=== PATIENT | female | born 1965 | race Caucasian/White ===

== ENCOUNTER → 2018-03-04 11:47 | Outpatient (CLI) | payer OTHER, SELFPAY ==
--- NOTE | 2018-03-04 11:52 | RAD_ITS ---
STUDY: X-RAY - RIGHT FOOT CLINICAL: Female, 53 years old. History of plantar fasciitis. TECHNIQUE: 3 view(s) of the foot. COMPARISON: None. FINDINGS: There is a plantar calcaneal spur. Normal visualized subtalar, talonavicular, calcaneocuboid, tarsal and tarsometatarsal articulations. Normal metatarsi. Normal metatarsophalangeal joint of the great toe. Normal tibial and fibular sesamoid bones. Normal interphalangeal joint of the great toe. Normal phalanges of the great toe. Normal second through fifth metatarsophalangeal joints. Normal interphalangeal joints and phalanges of the lesser toes. The soft tissue structures are unremarkable. RAD/Foot min 3 Views IMPRESSION: Plantar spur. Electronically Signed: Fidel Monroy MD at 11:38 EDT Tel [phone], Service support ,
--- NOTE | 2018-03-04 11:52 | RAD_ITS ---
STUDY: X-RAY - LEFT FOOT CLINICAL: Female, 53 years old. Pain TECHNIQUE: Three view(s) of the foot were obtained. COMPARISON: None. FINDINGS: Bones: There are no acute osseous abnormalities. There is a small spur off the inferior calcaneus. Joints: The visualized joints are unremarkable. Soft tissues: The soft tissues are unremarkable. Foreign body: None RAD/Foot min 3 Views IMPRESSION: No significant abnormalities are seen radiographically in the left foot. There is a small inferior calcaneal spur. Electronically Signed: Debbi Robertson MD at 10:09 EDT Tel Direct: [phone], Service support ,
== END ==
PROVIDERS: Family Provider Family Medicine; PCP Family Medicine; Visit Provider Family Medicine
DX: M79.671 Pain in right foot (principal); M79.672 Pain in left foot; M72.2 Plantar fascial fibromatosis
CPT/HCPCS: 73630

== ENCOUNTER → 2018-03-27 18:28 | Outpatient (CLI) | payer OTHER, SELFPAY ==
[2018-03-27 18:31] LABS: Bacteria 0 SEEN /hpf (None Seen); Mucous, Urine 0 SEEN /hpf (<or=2+); Red Blood Cells-Urine 0 SEEN /hpf (0-5); Squamous Epithelial Cells - UA 0 SEEN /hpf (5-10)
[2018-03-27 19:11] LABS: Color, Urine Yellow (Yellow); Glucose, Dipstick Normal (Normal); Ketone-Dipstick Negative (Negative); Leukocyte Esterase-Dipstick 25 /ul (Negative); Nitrite-Dipstick Negative (Negative); Occult Blood-Urine 10 /ul (Negative); Protein-Dipstick Negative (Negative); Specific Gravity, Urine 1.005 (1.002-1.030); Urine Bilirubin Dipstick Negative (Negative); Urine Clarity Clear (Clear); Urine Urobilinogen Normal (Normal); Urine pH 6.5 (5.0 - 8.0)
[2018-03-27 19:21] LABS: White Blood Cells 0-5 SEEN /hpf (0-5)
== END ==
PROVIDERS: Visit Provider Physician Assistant Surgical
DX: R30.0 Dysuria (principal)
CPT/HCPCS: 81001; 87086

== ENCOUNTER 2018-05-03 01:40 | Day surgery (SDC) | payer OTHER, SELFPAY ==
[2018-05-03] VITALS (15 sets, daily range): BP systolic 99–140; BP diastolic 58–80; PULSE 68–106; RESP 16–20; TEMP 36.6–37.7; O2SAT 90–99; BMI 29.7
--- NOTE | 2018-05-03 02:15 | CT_ITS ---
STUDY: CT ABDOMEN AND PELVIS WITHOUT CONTRAST REASON FOR EXAM: Female, 53 years old. Right lower quadrant pain RADIATION DOSAGE (If Supplied By Facility): CTDIvol = ( 12.41 ) mGy, DLP = ( 623.25 ) mGycm TECHNIQUE: Transaxial images were obtained from the dome of the diaphragm to the symphysis pubis without oral contrast, and without intravenous contrast. Sagittal and coronal images were reconstructed. Individualized dose optimization techniques were used for this CT. COMPARISON: None. FINDINGS: The visualized lung bases are unremarkable. The visualized portions of the heart are within normal limits. Normal liver. Normal gallbladder and extrahepatic biliary system. Normal spleen. Normal pancreas. Normal bilateral adrenal glands. Normal right kidney. Normal left kidney. Normal visualized stomach. Normal small intestine. There are multiple colonic diverticula consistent with diverticulosis. There is a tubular, thick-walled appendix (>7mm), consistent with acute appendicitis. Normal abdominal aorta. Normal inferior vena cava. Normal retroperitoneum. Normal urinary bladder. Normal abdominal wall. Normal osseous structures. CT/Abdomen/Pelvis without Cont IMPRESSION: Acute appendicitis. Electronically Signed: Anita Chinchilla MD at 4:33 EDT Tel , Service support ,
[2018-05-03 02:33] LABS: Absolute Lymphocyte Count 1.67 X10^3/ul (0.83-4.51); Absolute Neutrophil Count 14.7 X10^3/uL (2.0-7.7); Basophil# 0.01 X10^3/uL; Basophil% 0.1 % (0-1); Eosinophil# 0.01 X10^3/uL; Eosinophils% 0.1 % (0-5); Hematocrit 46.5 % (37-47); Hemoglobin 16.1 g/dl (12.0-15.0); Lymphocyte # 1.67 X10^3/ul (4.0); Lymphocyte % 9.4 % (19-41); Mean Corp Hgb Conc 34.6 g/gl (32-36); Mean Corpuscular Volume 86.6 fL (81-99); Mean Platelet Vol. 10.4 fl (6.2-12.0); Monocyte# 1.34 X10^3/uL; Monocyte% 7.6 % (0-10); Neutrophil # 14.65 X10^3/uL (2.7-7.7); Neutrophil % 82.5 % (47-70); Platelet Count 360 K/mm3 (150-450); RBC Distribution Width CV 13.7 % (11.6-14.6); RBC Distribution Width SD 43.4 fl (35.1-43.9); Red Blood Count 5.37 M/mm3 (4.2-5.4); White Blood Count 17.7 K/mm3 (4.4-11.0)
[2018-05-03 02:34] LABS: POSITIVE COUNT NO; POSITIVE DIFFERENTIAL NO; POSITIVE MORPHOLOGY NO
[2018-05-03] MEDS: HYDROmorphone 1 MG/ML Syringe IV ×4 (02:37→21:12)
[2018-05-03] MEDS: 0.9% Normal Saline 1,000 ML 1000 ML IV (02:37)
[2018-05-03] MEDS: proMETHazine 25 MG/ML Syringe 6.25 MG IV (02:37)
--- NOTE | 2018-05-03 03:33 | ED.RN ---
PATIENT SLEEPING WITH EYES CLOSED, RESPIRATIONS EVEN AND UNLABORED. BED IN LOW AND LOCKED POSITION, CALL LIGHT WITHIN REACH.
[2018-05-03 03:35] LABS: ALB/GLOB Ratio 1.2 RATIO (0.9-2.4); AST(SGOT) 16 U/L (15-37); Alanine Aminotransfer ALT/SGPT 22 U/L (13-56); Albumin, Serum 3.6 g/dL (3.2-5.0); Alkaline Phosphatase 112 U/L (45-117); Anion Gap 10 (5-15); BUN 9 mg/dL (7-18); BUN/Creat Ratio 12.6 RATIO (10-20); Calcium,Total 8.8 mg/dL (8.5-10.1); Chloride 105 mmol/L (98-107); Creatinine, Serum 0.71 mg/dL (0.55-1.02); EST Glomerular Filtration Rate 91 mL/min (>60); Est Glom Filt Rate - Afr Amer 110 mL/min (>60); Estimated Creatinine Clearance 64.31 ml/min; Globulin 3.1 g/dL (2.2-4.2); Glucose 187 mg/dL (74-106); Lipase 66 U/L (73-393); Potassium 3.7 mmol/L (3.5-5.1); Protein, Total 6.7 g/dL (6.4-8.2); Sodium Level 141 mmol/L (136-145)
--- NOTE | 2018-05-03 05:42 | HP.PCM_ITS ---
Problem List (1) Appendicitis Status: Acute Qualifiers: Appendicitis type: acute appendicitis Acute appendicitis type: with localized peritonitis Qualified Code(s): K35.3 - Acute appendicitis with localized peritonitis History of Present Illness Date of Admission: 05/03/18 The patient is a 53 year old F who was in her normal state of health until 5:00 this evening when she developed periumbilical abdominal pain. Over the last several hours after that it gradually localized down to the right lower quadrant requiring her to come to the emergency department. Once in the emergency department she was noted to have a white count of 17.7 and a CAT scan which confirmed acute appendicitis. She has not been having any fevers or chills she has had some nausea and vomiting she complains of constant constipation. Past Medical History Medical History: Medical History (Last Updated 03/27/18 @ 17:54 by Suyapa Webb) Arthritis M19.90 Back pain M54.9 Diabetes E11.9 Fibromyalgia M79.7 GERD (gastroesophageal reflux disease) K21.9 IBS (irritable bowel syndrome) K58.9 Neuropathy G62.9 PCOS (polycystic ovarian syndrome) E28.2 Hypertension I10 Trigger finger release Allergies metoclopramide HCl [From Reglan] Allergy (Verified 05/03/18 01:40) Anaphylaxis Home Medications: Ambulatory Orders Medication Instructions Recorded Gabapentin [Neurontin] 600 mg PO BIDCM 05/24/15 Calcium Carbonate [Calcium] 1,200 mg PO DAILY 11/11/16 Docusate Sodium [Colace] 200 mg PO BID 11/11/16 milnacipran 50 mg tablet 75 mg PO BID 03/27/18 multivitamin capsule 1 cap PO QAM 03/27/18 pravastatin 40 mg tablet 40 mg PO DAILY 03/27/18 quinapril 40 mg tablet 40 mg PO DAILY 03/27/18 Aspirin [Aspirin, Baby] 81 mg PO DAILY@0800 05/03/18 Cyclobenzaprine [Flexeril] 5 mg PO QHS 05/03/18 Cyclobenzaprine [Flexeril] 10 mg PO BREAKFAST 05/03/18 Fiber PO BID 05/03/18 Insulin Pump Cartridge 05/03/18 Surgical History: Surgical History (Last Reviewed 05/03/18 @ 05:40 by Julio C Spann MD) H/O shoulder surgery Z98.890 H/O: hysterectomy Z90.710 S/P trigger finger release Z98.890 right thumb A1, left index A1- 18 History of arthroscopy of right shoulder Z98.890 History of hysterectomy Z98.890, Z90.710 History of tonsillectomy Z98.890, Z90.89 Hx of fusion of cervical spine Z98.1 Smoking Status: Never smoker - *Family History Maternal Family History: Family History (Last Reviewed 05/03/18 @ 05:41 by Julio C Spann MD) Other Arthritis Diabetes Review of Systems Constitutional: Denies: Chills, Fever, Weight Change Eyes: Denies: Blurred vision, Pain, Redness, Vision Change HEENT: Denies: Dysphasia, Ear Pain, Eye Pain, Head Aches, Hearing Changes, Sore Throat Cardiovascular: Denies: Chest Pain, Chest Pressure, Chest Tightness, Palpitations Respiratory: Denies: Cough, Hemoptysis, Shortness of breath at rest, Shortness of breath upon exertion, Wheezing Gastrointestinal: Reports: Abdominal Pain, Constipation, Nausea, Vomiting Genitourinary: Denies: Dysuria, Frequency, Hematuria, Urgency Musculoskeletal: Denies: Joint Pain Skin: Denies: Lesions, Rash, Wounds Neurological: Denies: Change in Speech, Confusion, Numbness, Tingling, Seizures Psychiatric: Denies: Anxiety, Depression Endocrine: Denies: Heat/ Cold Intolerance, Polydipsia, Polyuria Hematologic/ Lymphatic: Denies: Adenopathy, Easy Bruising VTE Information - Inpt Only VTE Present on Admission: No VTE Mechan Device Prophylaxis: None VTE Pharm Prophylaxis ordered?: No Reason prophylaxis not ordered:: Treatment Not Indicated Patient Problems: Active and Suspected Problems (Last Updated 03/27/18 @ 17:54 by Suyapa Webb) Appendicitis (Acute) - Physical Exam General: Alert, Oriented x3 HEENT: Atraumatic, PERRLA, EOMI, Normocephalic Lungs: Clear to auscultation Cardiovascular: Regular rate, Regular Rhythm, No murmurs Abdomen: Bowel Sounds Present, Soft, Non Tender, Non-Distended Vital Signs Temp Pulse Resp BP Pulse Ox 98.7 F 95 18 140/80 H 98 05/03/18 05:12 05/03/18 05:19 05/03/18 05:19 05/03/18 05:12 05/03/18 05:19 Oxygen Delivery Method Room Air Weight: 152 lb 1.903 oz Body Mass Index (BMI) 29.7 Laboratory Tests Past 24 Hrs 05/03/18 05/03/18 05/03/18 01:55 01:55 02:43 WBC 17.7 H RBC 5.37 Hgb 16.1 H Hct 46.5 MCV 86.6 MCH 30.0 MCHC 34.6 RDW 13.7 RDW Differential 43.4 Plt Count 360 MPV 10.4 Immature Gran % (Auto) 0.300 Neut % (Auto) 82.5 H Lymph % (Auto) 9.4 L [place] % (Auto) 7.6 Eos % (Auto) 0.1 Baso % (Auto) 0.1 Absolute Neuts (auto) 14.7 H Absolute Lymphs (auto) 1.67 Total Counted Not Reportable Sodium Cancelled Cancelled Potassium Cancelled Cancelled Chloride Cancelled Cancelled Carbon Dioxide Cancelled Cancelled Anion Gap Cancelled Cancelled BUN Cancelled Cancelled Creatinine Cancelled Cancelled Estim Creat Clear Calc Cancelled Cancelled Est GFR (MDRD) Af Amer Cancelled Cancelled Est GFR (MDRD) Non-Af Cancelled Cancelled BUN/Creatinine Ratio Cancelled Cancelled Glucose Cancelled Cancelled Calcium Cancelled Cancelled Total Bilirubin Cancelled Cancelled AST Cancelled Cancelled ALT Cancelled Cancelled Alkaline Phosphatase Cancelled Cancelled Total Protein Cancelled Cancelled Albumin Cancelled Cancelled Globulin Cancelled Cancelled Albumin/Globulin Ratio Cancelled Cancelled Lipase Cancelled Cancelled 05/03/18 03:15 WBC RBC Hgb Hct MCV MCH MCHC RDW RDW Differential Plt Count MPV Immature Gran % (Auto) Neut % (Auto) Lymph % (Auto) [place] % (Auto) Eos % (Auto) Baso % (Auto) Absolute Neuts (auto) Absolute Lymphs (auto) Total Counted Sodium 141 Potassium 3.7 Chloride 105 Carbon Dioxide 26.0 Anion Gap 10 BUN 9 Creatinine 0.71 Estim Creat Clear Calc 64.31 Est GFR (MDRD) Af Amer 110 Est GFR (MDRD) Non-Af 91 BUN/Creatinine Ratio 12.6 Glucose 187 H Calcium 8.8 Total Bilirubin 0.70 AST 16 ALT 22 Alkaline Phosphatase 112 Total Protein 6.7 Albumin 3.6 Globulin 3.1 Albumin/Globulin Ratio 1.2 Lipase 66 L Assessment/Plan All Active Problems (Last Updated 03/27/18 @ 17:54 by Suyapa Webb) Appendicitis (Acute) Cystitis (Acute) My plan is to perform a laparoscopic appendectomy. Risk benefits to include bleeding and infection possible injury to underlying structures possible blood clots heart attacks pneumonias strokes up to and including have all been discussed appropriately. All questions asked of been answered and the patient agrees to proceed.
--- NOTE | 2018-05-03 05:45 | NURSING ---
PT SIGNED CONSENT FORM FOR APPY PERFORMED BY DOCTOR BECKETT
--- NOTE | 2018-05-03 07:07 | PCM.OPRPT ---
Problem List (1) Appendicitis Status: Acute Qualifiers: Appendicitis type: acute appendicitis Acute appendicitis type: with localized peritonitis Qualified Code(s): K35.3 - Acute appendicitis with localized peritonitis Report of Operation Date of Procedure: 05/03/18 Pre-Operative Diagnosis: acute appendicitis Post-Operative Diagnosis: Same Surgery/Procedure Performed:: Laparoscopic appendectomy Type of Anesthesia:: General Anesthesiologist: Arslan Ribera Description of Procedure: Patient was brought into the operating room placed in the supine position. Under excellent general endotracheal intubation the abdomen was sterilely prepped and draped in the usual fashion. Local was injected supraumbilically. A curvilinear incision was made. Dissection was carried down to the fascia. Fascia was grasped with a Jacki. Varies needle was placed inside the abdomen. The abdomen was insufflated to 15 torr. A 10/12 trocar was placed without difficulty. Patient was placed in the head down and rotated to the left position. The suprapubic #5 trocar was placed, a left lower quadrant #5 trocar was placed. Both of these under direct visualization without injury to underlying structures. Patient was noted to have acute appendicitis I dissected the mesoappendix free and took it down with the Enseal. I transected the base the appendix with a 45 linear cutter. I placed a specimen and specimen bag and delivered through the umbilical port. I reinflated the abdomen I took a small adhesion down into the pelvis inspected there was no pus or purulent fluid identified. In fact there is no purulent fluid identified anywhere. I remove the trochars under direct visualization. I closed the fascia the umbilical port with a [id number] stitch of 0 Vicryl. Skin incisions were closed with subcuticular stitches of 4-0 Monocryl. Steri-Strips are applied sterile dressings were applied and the patient tolerated the procedure well. - Admit VTE Documentation VTE Present on Admission: No VTE Mechan Device Prophylaxis: SCD's VTE Pharm Prophylaxis ordered?: No Reason prophylaxis not ordered:: Treatment Not Indicated
--- NOTE | 2018-05-03 07:09 | DT_ITS ---
This patient was seen during an EMR downtime May 04, 2018 - May 11, 2018. This patient may have a combination of paper and electronic documentation or all paper documentation. All documentation is viewable within the e-chart portion of [facility] for each patient visit.
[2018-05-03] MEDS: Bupivacaine Mpf 0.5% 30 ML VIAL (07:26)
[2018-05-03 08:16] LABS: Bedside Glucose 113 mg/dL (70-110)
[2018-05-03] MEDS: Lactated Ringers 1,000 ML 75 ML IV ×2 (08:45→19:33)
[2018-05-03] MEDS: DULoxetine Hcl 60 MG Capsule PO ×2 (12:30→21:12)
[2018-05-03] MEDS: Docusate Sodium 100 MG Capsule 200 MG PO ×2 (12:30→21:12)
[2018-05-03] MEDS: Pravastatin 40 MG Tablet PO (12:30)
--- NOTE | 2018-05-03 14:42 | PCM.CONS.GEN ---
Problem List (1) Diabetes mellitus type 1 Status: Chronic (2) Appendicitis Status: Acute Qualifiers: Appendicitis type: acute appendicitis Acute appendicitis type: with localized peritonitis Qualified Code(s): K35.3 - Acute appendicitis with localized peritonitis Reason for Consult Date of Consultation: 05/03/18 Reason for Consultation: DM management. History of Present Illness: The patient is a 53 year old F presents with abdominal pain. Abdominal pain was umbilical then radiated to her right lower quadrant. Patient was found to have acute appendicitis. Patient was taken to surgery today and have a laparoscopic appendectomy. Patient is feeling okay right now little groggy after receiving some pain medications. Patient is a type I diabetic with insulin pump and remote monitor. Patient manages her diabetes on her own. [] Past Medical History Past Medical History (Chronic Problems): Chronic Problems (Last Updated 03/27/18 @ 17:54 by Suyapa Webb) Diabetes mellitus type 1 (Chronic) Medical History: Medical History (Last Reviewed 05/03/18 @ 14:45 by Arslan Grullon DO) Arthritis M19.90 Back pain M54.9 Diabetes E11.9 Fibromyalgia M79.7 GERD (gastroesophageal reflux disease) K21.9 IBS (irritable bowel syndrome) K58.9 Neuropathy G62.9 PCOS (polycystic ovarian syndrome) E28.2 Hypertension I10 Trigger finger release Allergies metoclopramide HCl [From Reglan] Allergy (Verified 05/03/18 01:40) Anaphylaxis Home Medications: Ambulatory Orders Medication Instructions Recorded Gabapentin [Neurontin] 600 mg PO BIDCM 05/24/15 Calcium Carbonate [Calcium] 1,200 mg PO DAILY 11/11/16 Docusate Sodium [Colace] 200 mg PO BID 11/11/16 milnacipran 50 mg tablet 75 mg PO BID 03/27/18 multivitamin capsule 1 cap PO QAM 03/27/18 pravastatin 40 mg tablet 40 mg PO DAILY 03/27/18 quinapril 40 mg tablet 40 mg PO DAILY 03/27/18 Aspirin [Aspirin, Baby] 81 mg PO DAILY@0800 05/03/18 Cyclobenzaprine [Flexeril] 5 mg PO QHS 05/03/18 Cyclobenzaprine [Flexeril] 10 mg PO BREAKFAST 05/03/18 Fiber PO BID 05/03/18 Insulin Pump Cartridge 05/03/18 Surgical History: Surgical History (Last Reviewed 05/03/18 @ 14:46 by Arslan Grullon DO) H/O shoulder surgery Z98.890 H/O: hysterectomy Z90.710 S/P trigger finger release Z98.890 right thumb A1, left index A1- 12/09/17 History of arthroscopy of right shoulder Z98.890 History of hysterectomy Z98.890, Z90.710 History of tonsillectomy Z98.890, Z90.89 Hx of fusion of cervical spine Z98.1 Surgical History: appendectomy, hysterectomy, - - tubal ligation Lives: Spouse/ Significant Other Smoking Status: Never smoker Tobacco Use: Non-smoker Alcohol: None Drugs: None - *Family History Maternal Family History: Family History (Last Reviewed 05/03/18 @ 14:46 by Arslan Grullon DO) Other Arthritis Diabetes Review of Systems Constitutional: Denies: Anorexia, Chills, Fever Eyes: Denies: Blurred vision, Double vision HEENT: Denies: Head Aches, Sinus Congestion, Sinus Drainage Cardiovascular: Denies: Chest Pain, Palpitations Respiratory: Denies: Cough, Shortness of breath at rest, Sputum production Gastrointestinal: Reports: Abdominal Pain, Nausea, Vomiting Genitourinary: Denies: Dysuria Musculoskeletal: Denies: Joint Pain, Joint Tenderness Skin: Denies: Rash, Wounds Neurological: Reports: - - paresthesia in feet d/t neuropathy Psychiatric: Denies: Anxiety, Depression Hematologic/ Lymphatic: Reports: Hx of blood clot. Denies: Easy Bruising, Easy Bleeding - Physical Exam General: Alert, Cooperative, No apparent distress HEENT: Atraumatic, Normocephalic Neck: No Nodes, Thyroid Normal Size and Texture Lungs: Clear to auscultation, Normal air movement, No rhonchi, No wheeze Cardiovascular: Regular rate, Regular Rhythm, Normal S1, Normal S2, No murmurs Abdomen: Soft, Non Tender, Non-Distended, Hypoactive Bowel Sounds Extremities: No edema, No Calf Tenderness Skin: No rashes, No breakdown Psych/Mental Status: Normal Affect, Appropriate Vital Signs Temp Pulse Resp BP Pulse Ox 37.7 C H 94 20 H 122/62 H 90 05/03/18 12:45 05/03/18 12:45 05/03/18 12:45 05/03/18 12:45 05/03/18 13:34 Oxygen Flow Rate (L/min) 2 Oxygen Delivery Method Room Air Weight: 69 kg Body Mass Index (BMI) 29.7 Finger Stick Blood Glucose 113 Intake and Output for Last 24 Hours 05/01/18 05/02/18 05/03/18 23:59 23:59 23:59 Intake Total 2712 / 2712 Balance 2712 / 2712 Laboratory Tests Past 24 Hrs 05/03/18 05/03/18 05/03/18 01:55 01:55 02:43 WBC 17.7 H RBC 5.37 Hgb 16.1 H Hct 46.5 MCV 86.6 MCH 30.0 MCHC 34.6 RDW 13.7 RDW Differential 43.4 Plt Count 360 MPV 10.4 Immature Gran % (Auto) 0.300 Neut % (Auto) 82.5 H Lymph % (Auto) 9.4 L [place] % (Auto) 7.6 Eos % (Auto) 0.1 Baso % (Auto) 0.1 Absolute Neuts (auto) 14.7 H Absolute Lymphs (auto) 1.67 Total Counted Not Reportable Sodium Cancelled Cancelled Potassium Cancelled Cancelled Chloride Cancelled Cancelled Carbon Dioxide Cancelled Cancelled Anion Gap Cancelled Cancelled BUN Cancelled Cancelled Creatinine Cancelled Cancelled Estim Creat Clear Calc Cancelled Cancelled Est GFR (MDRD) Af Amer Cancelled Cancelled Est GFR (MDRD) Non-Af Cancelled Cancelled BUN/Creatinine Ratio Cancelled Cancelled Glucose Cancelled Cancelled Calcium Cancelled Cancelled Total Bilirubin Cancelled Cancelled AST Cancelled Cancelled ALT Cancelled Cancelled Alkaline Phosphatase Cancelled Cancelled Total Protein Cancelled Cancelled Albumin Cancelled Cancelled Globulin Cancelled Cancelled Albumin/Globulin Ratio Cancelled Cancelled Lipase Cancelled Cancelled 05/03/18 03:15 WBC RBC Hgb Hct MCV MCH MCHC RDW RDW Differential Plt Count MPV Immature Gran % (Auto) Neut % (Auto) Lymph % (Auto) [place] % (Auto) Eos % (Auto) Baso % (Auto) Absolute Neuts (auto) Absolute Lymphs (auto) Total Counted Sodium 141 Potassium 3.7 Chloride 105 Carbon Dioxide 26.0 Anion Gap 10 BUN 9 Creatinine 0.71 Estim Creat Clear Calc 64.31 Est GFR (MDRD) Af Amer 110 Est GFR (MDRD) Non-Af 91 BUN/Creatinine Ratio 12.6 Glucose 187 H Calcium 8.8 Total Bilirubin 0.70 AST 16 ALT 22 Alkaline Phosphatase 112 Total Protein 6.7 Albumin 3.6 Globulin 3.1 Albumin/Globulin Ratio 1.2 Lipase 66 L POC Glucose 05/03/18 08:10 POC Glucose 113 H Assessment/Plan All Active Problems (Last Updated 03/27/18 @ 17:54 by Suyapa Webb) Appendicitis (Acute) Cystitis (Acute) 1. DM type 1 pt manages on her own with insulin pump and implanted glucometer will assist as needed or if patient unable 2. acute appendicitis s/p lap brunilda mgmt per surgery 3. DVT proph: per primary service Thank you for the consult. The hospitalist service will follow along with you. Code Visit Inpatient E&M: 17472 Init Hosp L2
--- NOTE | 2018-05-03 14:50 | CON.PCM_ITS ---
Problem List (1) Diabetes mellitus type 1 Status: Chronic (2) Appendicitis Status: Acute Qualifiers: Appendicitis type: acute appendicitis Acute appendicitis type: with localized peritonitis Qualified Code(s): K35.3 - Acute appendicitis with localized peritonitis Reason for Consult Date of Consultation: 05/03/18 Reason for Consultation: DM management. History of Present Illness: The patient is a 53 year old F presents with abdominal pain. Abdominal pain was umbilical then radiated to her right lower quadrant. Patient was found to have acute appendicitis. Patient was taken to surgery today and have a laparoscopic appendectomy. Patient is feeling okay right now little groggy after receiving some pain medications. Patient is a type I diabetic with insulin pump and remote monitor. Patient manages her diabetes on her own. [] Past Medical History Past Medical History (Chronic Problems): Chronic Problems (Last Updated 03/27/18 @ 17:54 by Suyapa Webb) Diabetes mellitus type 1 (Chronic) Medical History: Medical History (Last Reviewed 05/03/18 @ 14:45 by Arslan Grullon DO) Arthritis M19.90 Back pain M54.9 Diabetes E11.9 Fibromyalgia M79.7 GERD (gastroesophageal reflux disease) K21.9 IBS (irritable bowel syndrome) K58.9 Neuropathy G62.9 PCOS (polycystic ovarian syndrome) E28.2 Hypertension I10 Trigger finger release Allergies metoclopramide HCl [From Reglan] Allergy (Verified 05/03/18 01:40) Anaphylaxis Home Medications: Ambulatory Orders Medication Instructions Recorded Gabapentin [Neurontin] 600 mg PO BIDCM 05/24/15 Calcium Carbonate [Calcium] 1,200 mg PO DAILY 11/11/16 Docusate Sodium [Colace] 200 mg PO BID 11/11/16 milnacipran 50 mg tablet 75 mg PO BID 03/27/18 multivitamin capsule 1 cap PO QAM 03/27/18 pravastatin 40 mg tablet 40 mg PO DAILY 03/27/18 quinapril 40 mg tablet 40 mg PO DAILY 03/27/18 Aspirin [Aspirin, Baby] 81 mg PO DAILY@0800 05/03/18 Cyclobenzaprine [Flexeril] 5 mg PO QHS 05/03/18 Cyclobenzaprine [Flexeril] 10 mg PO BREAKFAST 05/03/18 Fiber PO BID 05/03/18 Insulin Pump Cartridge 05/03/18 Surgical History: Surgical History (Last Reviewed 05/03/18 @ 14:46 by Arslan Grullon DO) H/O shoulder surgery Z98.890 H/O: hysterectomy Z90.710 S/P trigger finger release Z98.890 right thumb A1, left index A1- 12/09/17 History of arthroscopy of right shoulder Z98.890 History of hysterectomy Z98.890, Z90.710 History of tonsillectomy Z98.890, Z90.89 Hx of fusion of cervical spine Z98.1 Surgical History: appendectomy, hysterectomy, - - tubal ligation Lives: Spouse/ Significant Other Smoking Status: Never smoker Tobacco Use: Non-smoker Alcohol: None Drugs: None - *Family History Maternal Family History: Family History (Last Reviewed 05/03/18 @ 14:46 by Arslan Grullon DO) Other Arthritis Diabetes Review of Systems Constitutional: Denies: Anorexia, Chills, Fever Eyes: Denies: Blurred vision, Double vision HEENT: Denies: Head Aches, Sinus Congestion, Sinus Drainage Cardiovascular: Denies: Chest Pain, Palpitations Respiratory: Denies: Cough, Shortness of breath at rest, Sputum production Gastrointestinal: Reports: Abdominal Pain, Nausea, Vomiting Genitourinary: Denies: Dysuria Musculoskeletal: Denies: Joint Pain, Joint Tenderness Skin: Denies: Rash, Wounds Neurological: Reports: - - paresthesia in feet d/t neuropathy Psychiatric: Denies: Anxiety, Depression Hematologic/ Lymphatic: Reports: Hx of blood clot. Denies: Easy Bruising, Easy Bleeding - Physical Exam General: Alert, Cooperative, No apparent distress HEENT: Atraumatic, Normocephalic Neck: No Nodes, Thyroid Normal Size and Texture Lungs: Clear to auscultation, Normal air movement, No rhonchi, No wheeze Cardiovascular: Regular rate, Regular Rhythm, Normal S1, Normal S2, No murmurs Abdomen: Soft, Non Tender, Non-Distended, Hypoactive Bowel Sounds Extremities: No edema, No Calf Tenderness Skin: No rashes, No breakdown Psych/Mental Status: Normal Affect, Appropriate Vital Signs Temp Pulse Resp BP Pulse Ox 37.7 C H 94 20 H 122/62 H 90 05/03/18 12:45 05/03/18 12:45 05/03/18 12:45 05/03/18 12:45 05/03/18 13:34 Oxygen Flow Rate (L/min) 2 Oxygen Delivery Method Room Air Weight: 69 kg Body Mass Index (BMI) 29.7 Finger Stick Blood Glucose 113 Intake and Output for Last 24 Hours 05/01/18 05/02/18 05/03/18 23:59 23:59 23:59 Intake Total 2712 / 2712 Balance 2712 / 2712 Laboratory Tests Past 24 Hrs 05/03/18 05/03/18 05/03/18 01:55 01:55 02:43 WBC 17.7 H RBC 5.37 Hgb 16.1 H Hct 46.5 MCV 86.6 MCH 30.0 MCHC 34.6 RDW 13.7 RDW Differential 43.4 Plt Count 360 MPV 10.4 Immature Gran % (Auto) 0.300 Neut % (Auto) 82.5 H Lymph % (Auto) 9.4 L [place] % (Auto) 7.6 Eos % (Auto) 0.1 Baso % (Auto) 0.1 Absolute Neuts (auto) 14.7 H Absolute Lymphs (auto) 1.67 Total Counted Not Reportable Sodium Cancelled Cancelled Potassium Cancelled Cancelled Chloride Cancelled Cancelled Carbon Dioxide Cancelled Cancelled Anion Gap Cancelled Cancelled BUN Cancelled Cancelled Creatinine Cancelled Cancelled Estim Creat Clear Calc Cancelled Cancelled Est GFR (MDRD) Af Amer Cancelled Cancelled Est GFR (MDRD) Non-Af Cancelled Cancelled BUN/Creatinine Ratio Cancelled Cancelled Glucose Cancelled Cancelled Calcium Cancelled Cancelled Total Bilirubin Cancelled Cancelled AST Cancelled Cancelled ALT Cancelled Cancelled Alkaline Phosphatase Cancelled Cancelled Total Protein Cancelled Cancelled Albumin Cancelled Cancelled Globulin Cancelled Cancelled Albumin/Globulin Ratio Cancelled Cancelled Lipase Cancelled Cancelled 05/03/18 03:15 WBC RBC Hgb Hct MCV MCH MCHC RDW RDW Differential Plt Count MPV Immature Gran % (Auto) Neut % (Auto) Lymph % (Auto) [place] % (Auto) Eos % (Auto) Baso % (Auto) Absolute Neuts (auto) Absolute Lymphs (auto) Total Counted Sodium 141 Potassium 3.7 Chloride 105 Carbon Dioxide 26.0 Anion Gap 10 BUN 9 Creatinine 0.71 Estim Creat Clear Calc 64.31 Est GFR (MDRD) Af Amer 110 Est GFR (MDRD) Non-Af 91 BUN/Creatinine Ratio 12.6 Glucose 187 H Calcium 8.8 Total Bilirubin 0.70 AST 16 ALT 22 Alkaline Phosphatase 112 Total Protein 6.7 Albumin 3.6 Globulin 3.1 Albumin/Globulin Ratio 1.2 Lipase 66 L POC Glucose 05/03/18 08:10 POC Glucose 113 H Assessment/Plan All Active Problems (Last Updated 03/27/18 @ 17:54 by Suyapa Webb) Appendicitis (Acute) Cystitis (Acute) 1. DM type 1 * pt manages on her own with insulin pump and implanted glucometer * will assist as needed or if patient unable 2. acute appendicitis * s/p lap brunilda * mgmt per surgery 3. DVT proph: per primary service Thank you for the consult. The hospitalist service will follow along with you. Code Visit Inpatient E&M: [id number] Init Hosp L2
[2018-05-03] MEDS: Piperacil/Tazobactam 3.375 GM/50 ML ML IV ×2 (15:21→21:02)
[2018-05-03] MEDS: HYDROcodone Bitartrate/Apap 5/325 Tablet PO (16:24)
[2018-05-03] MEDS: Gabapentin 600 MG Tablet PO (18:14)
[2018-05-03] MEDS: 0.9% NaCl Peripheral Flush Adult/Peds IV (21:12)
[2018-05-03] MEDS: CYCLOBENZAPRINE HCL 5 MG TABLET PO (21:13)
[2018-05-03] MEDS: Ibuprofen 400 MG Tablet 800 MG PO (21:15)
--- NOTE | 2018-05-04 | APP_PTH ---
PATIENT: DEANNE CAO LOC: [facility] U#:[id number] AGE/SX: 53/F ROOM: RE05/03/[address]: Dr. Julio C Spann MD : [id number] BED: DIS: 05/04/2018 SPEC #: [id number] RECD: 05/04/18 11:18 STATUS: CACHORRO RECatarino #: [id number] GURU: 05/04/18 00:[address]: Julio C Spann DEPT: SURGICAL PATHOLOGY RECD BY: Martinez Kumar ENTERED: 05/07/18 11:18 SP TYPE: APPENDIX OTHR DR: Dr. Santino Ruelas, DO Tissues: Appendix, NOS Procedures: Surgery Specimen Level III HEADER OPERATION: Laparoscopic appendectomy PRE-OP DIAGNOSIS: Acute appendicitis TISSUE SUBMITTED: Appendix MICROSCOPIC DIAGNOSIS Appendix: Acute appendicitis and periappendicitis. SJ:flora 05/08/18 MICROSCOPIC DESCRIPTION Slides are reviewed. GROSS DESCRIPTION Received is one container labeled with the patient's name and designated appendix. The specimen consists of a C-shaped appendix measuring 9.5 cm in length and up to 1 cm in average diameter. The attached periappendiceal adipose tissue measures 4 cm in width. No obvious perforation is identified. The lumen contains fecal material. No fecalith is identified. Foster Care Case Manager sections are submitted in one cassette. / SJ:flora 05/04/18 TC:2 [facility]: [id number]
[2018-05-04] MEDS: HYDROcodone Bitartrate/Apap 5/325 Tablet PO (02:52)
[2018-05-04 02:54] VITALS: BP 106/61; PULSE 88; RESP 16; TEMP 36.7; O2SAT 94
--- NOTE | 2018-05-04 02:58 | NURSING ---
Bedside report to ROEL Hair at this time.
[2018-05-07 16:08] LABS: Basophil% 0.2 % (0-1); Differential Indicated SCAN CRITERIA MET; Eosinophils% 1.6 % (0-5); Hematocrit 38.9 % (37-47); Hemoglobin 12.7 g/dl (12.0-15.0); Lymphocyte % 24.6 % (19-41); Mean Corp Hgb Conc 32.6 g/gl (32-36); Mean Corpuscular Hgb 30.1 pg (27.0-32.0); Mean Corpuscular Volume 92.2 fL (81-99); Mean Platelet Vol. 10.9 fl (6.2-12.0); Monocyte% 9.2 % (0-10); Neutrophil % 64.4 % (47-70); POSITIVE COUNT NO; POSITIVE DIFFERENTIAL NO; POSITIVE MORPHOLOGY YES; Platelet Count 240 K/mm3 (150-450); RBC Distribution Width CV 13.6 % (11.6-14.6); RBC Distribution Width SD 44.9 fl (35.1-43.9); Red Blood Count 4.22 M/mm3 (4.2-5.4); White Blood Count 10.6 K/mm3 (4.4-11.0)
[2018-05-07 16:09] LABS: Absolute Lymphocyte Count 2.62 X10^3/ul (0.83-4.51); Absolute Neutrophil Count 6.8 X10^3/uL (2.0-7.7); Basophil# 0.02 X10^3/uL; Differential Comment SCANNED; Eosinophil# 0.17 X10^3/uL; Lymphocyte # 2.62 X10^3/ul (4.0); Monocyte# 0.98 X10^3/uL; Neutrophil # 6.84 X10^3/uL (2.7-7.7)
== END 2018-05-04 10:35 | disposition home or self-care (01) ==
LOC: ED 02:59 → SDC 07:18 → MS3 08:08
PROVIDERS: Emergency Provider Emergency Medicine; Family Provider Family Medicine; PCP Family Medicine; Visit Provider Surgery
PROC: 0DTJ4ZZ Resection of Appendix, Percutaneous Endoscopic Approach (ICD-10-PCS; CPT 44970; principal; 2018-05-03 07:00)
DX: K35.3 Acute appendicitis with localized peritonitis (principal); M19.90 Unspecified osteoarthritis, unspecified site; M54.9 Dorsalgia, unspecified; M79.7 Fibromyalgia; K21.9 Gastro-esophageal reflux disease without esophagitis; K58.9 Irritable bowel syndrome, unspecified; G62.9 Polyneuropathy, unspecified; E28.2 Polycystic ovarian syndrome; I10 Essential (primary) hypertension; E10.9 Type 1 diabetes mellitus without complications; Z79.4 Long term (current) use of insulin
CPT/HCPCS: 00840; 44970; 36415; 74176; 80053; 82962; 83690; 85025; 88304; 99283; J7030; J7040; J7120; A4216; C1760; J2405

== ENCOUNTER → 2018-10-14 10:55 | Outpatient (CLI) | payer OTHER, SELFPAY ==
[2018-10-14 12:11] LABS: Absolute Lymphocyte Count 1.83 X10^3/ul (0.83-4.51); Absolute Neutrophil Count 3.3 X10^3/uL (2.0-7.7); Basophil# 0.02 X10^3/uL; Basophil% 0.3 % (0-1); Eosinophil# 0.21 X10^3/uL; Eosinophils% 3.5 % (0-5); Hematocrit 48.2 % (37-47); Hemoglobin 16.3 g/dl (12.0-15.0); Lymphocyte # 1.83 X10^3/ul (4.0); Lymphocyte % 30.4 % (19-41); Mean Corp Hgb Conc 33.8 g/gl (32-36); Mean Corpuscular Hgb 30.1 pg (27.0-32.0); Mean Corpuscular Volume 89.1 fL (81-99); Mean Platelet Vol. 10.4 fl (6.2-12.0); Neutrophil # 3.34 X10^3/uL (2.7-7.7); Neutrophil % 55.6 % (47-70); Platelet Count 357 K/mm3 (150-450); RBC Distribution Width CV 12.8 % (11.6-14.6); RBC Distribution Width SD 42.2 fl (35.1-43.9); Red Blood Count 5.41 M/mm3 (4.2-5.4)
[2018-10-14 12:23] LABS: POSITIVE COUNT NO; POSITIVE DIFFERENTIAL NO; POSITIVE MORPHOLOGY NO
[2018-10-14 15:54] LABS: Ferritin 95 ng/mL (8-252); T4 Free Direct 0.88 ng/dL (0.76-1.46); Thyroid Stim Hormone (TSH) 2.04 uIU/mL (0.358-3.74)
== END ==
PROVIDERS: Family Provider Family Medicine; PCP Family Medicine; Visit Provider Family Medicine
DX: R53.83 Other fatigue (principal); L65.9 Nonscarring hair loss, unspecified; E10.49 Type 1 diabetes mellitus with other diabetic neurological complication
CPT/HCPCS: 36415; 82728; 84439; 84443; 85025

== ENCOUNTER → 2019-02-03 10:20 | Outpatient (CLI) | payer OTHER, SELFPAY ==
[2018-12-24 16:20] VITALS: BMI 28.7
--- NOTE | 2019-02-03 10:22 | BI_ITS ---
MAMMOGRAPHY - BILATERAL SCREENING REASON FOR EXAM: Female, 53 years old. Routine annual screening examination. PERTINENT HISTORY: Non-contributory. TECHNIQUE: Digital bilateral breast justin (3D mammographic acquisition) in the CC and MLO projections. 2-D mediolateral oblique (MLO) and craniocaudad (CC) views of both breasts were obtained. CAD: Full Field Digital Mammography with Computer Added Detection was performed. COMPARISON: Comparison is made with prior examination July 05, 2013. FINDINGS: Breast Composition: The breasts are heterogeneously dense, which may obscure small masses. There are no dominant masses or suspicious calcifications. Stable small benign-appearing bilateral axillary lymph nodes. No other significant abnormalities are identified. There has been no significant change since the prior study. BI/SCREENING MAMM (CAD), BILAT IMPRESSION: Stable bilateral screening mammogram. Yearly follow-up mammogram recommended. (A) ASSESSMENT CATEGORY: BIRADS Category 2: Benign. A letter regarding these results will be sent to the patient by the facility within 30 days. Approximately 10% of breast cancers are not detected by mammography. A normal mammogram should not delay biopsy of a clinically suspicious abnormality. [id number] Electronically Signed: Fidel Monroy, at 11:32 EST , Service support ,
== END ==
PROVIDERS: Family Provider Family Medicine; PCP Family Medicine; Visit Provider Family Medicine
DX: Z12.31 Encounter for screening mammogram for malignant neoplasm of breast (principal)
CPT/HCPCS: 77063; 77067

== ENCOUNTER → 2019-03-18 22:44 | Outpatient (CLI) | payer OTHER, SELFPAY ==
[2019-03-18 19:42] VITALS: BMI 28.5
== END ==
PROVIDERS: Family Provider Family Medicine; PCP Family Medicine; Referring Provider Nurse Practitioner; Visit Provider Nurse Practitioner
DX: N30.90 Cystitis, unspecified without hematuria (principal)
CPT/HCPCS: 87086; 87088; 87186

== ENCOUNTER → 2019-05-05 | Outpatient (CLI) | payer OTHER, SELFPAY ==
[2019-03-18 19:42] VITALS: BMI 28.5
[2019-05-07 12:56] LABS: Microalbumin,Random Urine < 5.0 mg/L (NO RANGE EST.)
[2019-05-07 12:57] LABS: Hemoglobin A1c 7.1 % (4.2-6.3); Probe Check PASS; Sample Adequacy Control PASS; Specimen Processing Control PASS; Trichomonas Vag DNA by PCR Negative (Negative)
== END | disposition home or self-care (01) ==
LOC: LAB.FUTURE 09:08
PROVIDERS: Family Provider Family Medicine; PCP Family Medicine; Visit Provider Family Medicine
DX: E10.49 Type 1 diabetes mellitus with other diabetic neurological complication (principal); N89.8 Other specified noninflammatory disorders of vagina
CPT/HCPCS: 36415; 82043; 82570; 83036; 87210; 87661

== ENCOUNTER → 2019-07-21 10:09 | Outpatient (CLI) | payer OTHER, SELFPAY ==
[2019-03-18 19:42] VITALS: BMI 28.5
--- NOTE | 2019-07-21 10:17 | RAD_ITS ---
STUDY: X-RAY - UNILATERAL RIBS ( LEFT ) WITH CHEST REASON FOR EXAM: Female, 54 years old. Rib pain. TECHNIQUE - RIBS: 4 view(s) of the ribs. TECHNIQUE - CHEST: Single frontal view of the chest. COMPARISON: None. FINDINGS - RIBS: Normal visualized ribs without a demonstrated fracture. FINDINGS - CHEST: The lungs are clear and expanded. There is no demonstrated pleural abnormality. Normal size heart. Normal mediastinum and patsy. Normal visualized pulmonary arteries. Normal visualized aortic arch and descending thoracic aorta. Normal visualized thoracic spine. Previous cervical spine surgery. Normal visualized ribs, clavicles, and shoulders. There is no demonstrated abnormality of the visualized soft tissue structures of the upper abdomen. RAD/Ribs Uni Min 3V w/PA Chest IMPRESSION: RIBS: Normal x-ray examination of the ribs. CHEST: Normal x-ray examination of the chest. Electronically Signed: Richy Kang MD at 17:01 EDT , Service support ,
== END ==
PROVIDERS: Family Provider Family Medicine; PCP Family Medicine; Referring Provider Family Medicine; Visit Provider Family Medicine
DX: R07.81 Pleurodynia (principal)
CPT/HCPCS: 71101

== ENCOUNTER 2019-09-13 09:16 | Emergency (ER) | payer OTHER, SELFPAY ==
[2019-03-18 19:42] VITALS: BMI 28.5
[2019-09-13 09:17] VITALS: BP 134/79; PULSE 100; RESP 16; TEMP 35.8; O2SAT 99; BMI 29.5
--- NOTE | 2019-09-13 09:25 | EKG12_ITS ---
Test Reason : UNRESPONSIVE Blood Pressure : / mmHG Vent. Rate : 081 BPM Atrial Rate : 081 BPM P-R Int : 152 ms QRS Dur : 098 ms QT Int : 428 ms P-R-T Axes : 070 -09 065 degrees QTc Int : 497 ms Normal sinus rhythm Low voltage QRS (limb leads) Prolonged QT Abnormal ECG Confirmed by RUPA HERNANDEZ, JEAN CARLOS ([id number]), content editor CRUZITO GREENWOOD ([id number]) on 09/15/2019 8:42:29 AM Referred By: MASON Confirmed By:JEAN CARLOS GOODE MD
--- NOTE | 2019-09-13 09:26 | ED.VIS.GEN ---
History of Present Illness Chief Complaint: Unresponsive Informant: Patient, - - Coworker Limited by: - - Patient dozes off and does not respond to verbal stimuli. Onset: Today Context: Sudden Onset Timing: Intermittent Quality: Periods of unresponsiveness and periods of talking Location: Work Current Severity: - - Unable to determine Maximum Severity: - - Unable to determine Worsened by: Unknown Relieved by: Nothing Associated Symptoms: Patient states she is fine - Past Medical History (1) Diabetes mellitus type 1 Status: Chronic Past Medical History - Allergies and Home Meds Allergies/Adverse Reactions: Allergies metoclopramide HCl [From Reglan] Allergy (Verified 09/13/19 09:25) Anaphylaxis Primary Care Physician: Santino Ruelas DO [Primary Care Provider] - Prior records reviewed: Yes Surgical History: appendectomy, hysterectomy, - - tubal ligation Lives: Spouse/ Significant Other Smoking Status: Never smoker Alcohol: None Drugs: None Review of Systems ROS: Unable to Obtain - States blood sugar elevated and problem with pump per patient and . Physical Exam Vital Signs/Narrative: Vital Signs Temp Pulse Resp BP Pulse Ox 09/13/19 09:17 96.5 F L 100 16 134/79 H 99 Inital Vital Signs reviewed: Yes General: Well nourished, Well developed, Obese, No Acute Distress - Patient resting supine position on bed. Appears that she is forcefully keeping her eyes closed. She had a positive startle response. She asked why I slapped my hands so loudly. She then went back to sleep. Head: Normocephalic, Atraumatic Eyes: Perrl, EOMI. Negative for: Pale conjunctiva, Scleral icterus ENT: Moist mucous membranes, No rhinorrhea Neck: Supple, Nontender, No lymphadenopathy, No JVD Cardiovascular: Regular rate, Regular rhythm, No murmurs, Normal S1, Normal S2 Respiratory: No distress, CTA bilaterally, Chest nontender Abdomen: Soft, Nontender, Nondistended, Normal bowel sounds, - - Site of insulin pump right lower quadrant Rectal: Deferred Extremities: Nontender, No edema Skin: Normal color, No rash, No Trauma. Negative for: Cyanosis, Diaphoresis, Jaundice Neurological: Cranial nerves II-XII grossly intact, Normal Strength, Normal Sensation, Normal DTR - There is no clonus or Babinski sign Psychological: - - Affect is restricted Diagnostic/Tx/Re-eval Laboratory Results 09/13/19 09/13/19 09/13/19 09:45 09:45 10:03 WBC 6.6 RBC 4.40 Hgb 13.2 Hct 39.6 MCV 90.0 MCH 30.0 MCHC 33.3 RDW Std Deviation 41.2 RDW Coeff of Tobias 12.4 Plt Count 259 MPV 9.6 Immature Gran % (Auto) 0.500 Neut % (Auto) 50.5 Lymph % (Auto) 35.2 [place] % (Auto) 9.9 Eos % (Auto) 3.3 Baso % (Auto) 0.6 Absolute Neuts (auto) 3.4 Absolute Lymphs (auto) 2.34 Nucleated RBC % 0 Sodium 142 Potassium 3.8 Chloride 110 H Carbon Dioxide 24.0 Anion Gap 8 BUN 10 Creatinine 0.67 Estim Creat Clear Calc 67.34 Est GFR (MDRD) Af Amer 117 Est GFR (MDRD) Non-Af 97 BUN/Creatinine Ratio 14.9 Glucose 184 H Calcium 7.5 L POC Glucose 177 H Blood sugar is 177 and would not explain patient's symptoms. Patient remembers using the restroom. She told the rifle case repairer that this occurred after she used the restroom. She was not diaphoretic or pale according to coworkers who accompanied her to the emergency department. With no cause that explains patient's symptoms concern this represents a conversion reaction. Recommend outpatient follow-up with therapist. - Rhythm Strip Rhythm Strip: Sinus Rhythm Rate: 77 Ectopy: None - EKG Initial EKG Interpretation: Sinus Rhythm - Sinus rhythm with ventricular rate of 81. RI interval is 152 ms. QS duration 98 ms. QT duration 420 ms. The QT interval is prolonged. QTc is 497 ms. Mil[place] is normal. - Medical Decision Making With positive startle response and arm avoidance test and patient speaking without difficulty when she does answer questions concerned there may be outside stresses. was contacted. He states she has been under generalized stress but nothing in particular. He raised concern regarding insulin pump since she had difficulty with the pump this morning. She is on no antidepressant medication or any type of psychotropic medication. Because she is diabetic we will obtain BGT and because informed us that she gave herself a bolus will assess BGT and 30 minutes. Basic metabolic panel was obtained to assess electrolytes, CO2 anion gap as well as renal function. EKG was obtained and patient was placed on monitor to assess for dysrhythmia. Consult was placed to case management because concern for conversion reaction. Informed patient could not see. Performed optic kinetics and patient is able to see. She tracks. She then made the comment that it was only brief. Daughter wished to speak with me in private. Daughter states she has been under significant distress. She has been very emotional with outburst. Daughter states she moved out of the house 6 months ago because she could not take her behavior and how her parents were interacting. With a negative metabolic work-up, normal neurologic exam and this new information it is my professional opinion patient has a conversion reaction. ED Disposition - Plan for ED Patient: Disposition: Home or Assisted Living Diagnosis: Conversion reaction Instructions: CONVERSION DISORDER (Conversion Reaction) Referrals: Santino Ruelas DO [Primary Care Provider] - 3-5 Days Additional Instructions: In my professional opinion you should follow-up with therapist.
[2019-09-13 09:52] LABS: Absolute Lymphocyte Count 2.34 X10^3/uL (0.83-4.51); Absolute Neutrophil Count 3.4 X10^3/uL (2.0-7.7); Basophil# 0.04 X10^3/uL; Basophil% 0.6 % (0-1); Eosinophil# 0.22 X10^3/uL; Eosinophils% 3.3 % (0-5); Hematocrit 39.6 % (37-47); Hemoglobin 13.2 g/dL (12.0-15.0); Lymphocyte # 2.34 X10^3/ul (4.0); Lymphocyte % 35.2 % (19-41); Mean Corp Hgb Conc 33.3 g/dL (32-36); Mean Platelet Vol. 9.6 fl (6.2-12.0); Monocyte# 0.66 X10^3/uL; Monocyte% 9.9 % (0-10); NRBC Flagged by Analyzer 0 % (0-5); Neutrophil # 3.35 X10^3/uL (2.7-7.7); Neutrophil % 50.5 % (47-70); Platelet Count 259 K/mm3 (150-450); RBC Distribution Width CV 12.4 % (11.6-14.6); RBC Distribution Width SD 41.2 fl (35.1-43.9); White Blood Count 6.6 K/mm3 (4.4-11.0)
[2019-09-13 10:05] LABS: Anion Gap 8 (5-15); BUN 10 mg/dL (7-18); BUN/Creat Ratio 14.9 RATIO (10-20); Calcium,Total 7.5 mg/dL (8.5-10.1); Chloride 110 mmol/L (98-107); Creatinine, Serum 0.67 mg/dL (0.55-1.02); EST Glomerular Filtration Rate 97 mL/min (>60); Est Glom Filt Rate - Afr Amer 117 mL/min (>60); Estimated Creatinine Clearance 67.34 ml/min; Glucose 184 mg/dL (74-106); Potassium 3.8 mmol/L (3.5-5.1); Sodium Level 142 mmol/L (136-145)
[2019-09-13 10:11] LABS: Bedside Glucose 177 mg/dL (70-110)
[2019-09-13 10:16] VITALS: BP 119/76; PULSE 76; RESP 14; O2SAT 100
--- NOTE | 2019-09-13 10:34 | CM.ED ---
Social Work Consult: Conversion Disorder Reaction Informant: Dr. Celis. Chief Complaint: I can not stay awake. Patient stating to be able to hear this freelance writer or medical team speaking with her but to be so deep that patient is not able to respond verbally. Marital/social status: to Antoine Owusu. Has know Antoine for 40 years. Has two adult children, Moody and Carol. Living Situation: Lives with spouse and son, Moody. Recent Stressors: Patient stating nothing out of the normal. Patient daughter stating that patient has become worse over the past year and that Carol recently moved out of the home due to it being too much. Carol stating that patient will have outburst of anger and frustration at home. Mental health treatment/hx: Denies any history. Substance Abuse: Denies. Abuse: None. General Behavior: Patient would fluctuate between having eyes open and making eye contact with this social media strategist to laying with eyes closed with minimal verbal response. Patient would have period of times when patient would stop responding verbally and appear to be asleep. When this social media strategist would raise voice to alert patient patient would not respond. After a few attempts patient would appear to be waking up and stating to have been hearing this social media strategist but could not respond verbally. Assessment: Met with patient and patient daughter in room. This social media strategist introduced self as well as social media strategist role. Patient agreeable to met with this social media strategist. Patient stating that social work consults are due to someone thinking I am crazy. This social media strategist clarifying for patient that the consult was not due to patient being crazy but that there is concern of patient mental health status as per Dr. Celis all medical results/screen are negative. This social media strategist inquiring if patient would be interested in a counseling appointment. Patient becoming agitated with the idea of counseling stating I do not need that. This social media strategist attempting to provide patient with a list of counseling agencies in the event that patient would change mind, patient declining. This social media strategist did put list of counseling agencies with patient discharge information and updated ROEL Acevedo. Patient daughter planning to provide transportation to home for patient. Khang Galan MSW, XAVIER
[2019-09-14 13:10] LABS: Bedside Glucose 212 mg/dL (70-110)
[2019-09-14 14:36] LABS: Bedside Glucose 236 mg/dL (70-110)
== END 2019-09-13 11:13 | disposition home or self-care (01) ==
PROVIDERS: Emergency Provider Emergency Medicine; Family Provider Family Medicine; PCP Family Medicine
DX: F44.9 Dissociative and conversion disorder, unspecified (principal); E10.9 Type 1 diabetes mellitus without complications; E66.9 Obesity, unspecified; Z79.4 Long term (current) use of insulin; Z96.41 Presence of insulin pump (external) (internal); Z79.82 Long term (current) use of aspirin; Z79.899 Other long term (current) drug therapy
CPT/HCPCS: 80048; 82962; 85025; 93005; 99284; A4216

== ENCOUNTER → 2019-09-22 13:19 | Outpatient (CLI) | payer OTHER, SELFPAY ==
[2019-09-13 09:17] VITALS: BMI 29.5
--- NOTE | 2019-09-22 13:24 | MRI_ITS ---
STUDY: MRA NECK WITH AND WITHOUT CONTRAST REASON FOR EXAM: Female, 54 years old. Syncope TECHNIQUE: 3-D gluw-rz-emyujb (TOF) imaging was performed in an 1.5 T MRI scanner. IV Dotarem 13 was administered for the contrast enhanced images. COMPARISON: None. FINDINGS: RIGHT CAROTID ARTERIES: Normal right common carotid artery (CCA). Normal right common carotid bulb. Normal origin of the right internal carotid (ICA) artery without a hemodynamically significant stenosis. Normal visualized cervical portion of the right internal carotid artery. Normal origin of the right external carotid artery (ECA). LEFT CAROTID ARTERIES: Normal left common carotid artery (CCA). Normal left common carotid bulb. Normal origin of the left internal carotid (ICA) artery without a hemodynamically significant stenosis. Normal visualized cervical portion of the left internal carotid artery. Normal origin of the left external carotid artery (ECA). VERTEBRAL ARTERIES: Normal antegrade flow within the bilateral vertebral artery without a hemodynamically significant stenosis. MRI/MRA Neck WITH and W/O Contrast IMPRESSION: Normal bilateral cervical carotid and vertebral arteries. Electronically Signed: Kings Lara MD at 20:38 EDT , Service support ,
== END ==
PROVIDERS: Family Provider Family Medicine; PCP Family Medicine; Referring Provider Family Medicine; Visit Provider Family Medicine
DX: R55 Syncope and collapse (principal); E10.9 Type 1 diabetes mellitus without complications
CPT/HCPCS: 70549; A9575

== ENCOUNTER → 2019-11-09 11:00 | Outpatient (CLI) | payer OTHER, SELFPAY ==
--- NOTE | 2019-11-09 11:42 | EKG12_ITS ---
Test Reason : PROLONGED QT Blood Pressure : / mmHG Vent. Rate : 078 BPM Atrial Rate : 078 BPM P-R Int : 154 ms QRS Dur : 094 ms QT Int : 420 ms P-R-T Axes : 068 -20 066 degrees QTc Int : 478 ms Normal sinus rhythm Possible Left atrial enlargement Borderline ECG When compared with ECG of 13-SEP-2019 09:34, No significant change was found Confirmed by MISSY HERNANDEZ, TOM ([id number]), book editor CRUZITO GREENWOOD ([id number]) on 11/10/2019 11:54:49 AM Referred By: Santino Ruelas Confirmed By:TOM LOUIS MD
[2019-11-09 12:31] LABS: Hemoglobin A1c 7.5 % (4.2-6.3)
== END ==
PROVIDERS: Family Provider Family Medicine; PCP Family Medicine; Referring Provider Family Medicine; Visit Provider Family Medicine
DX: E10.49 Type 1 diabetes mellitus with other diabetic neurological complication (principal); R94.31 Abnormal electrocardiogram [ECG] [EKG]
CPT/HCPCS: 36415; 83036; 93005

== ENCOUNTER → 2019-12-17 14:40 | Outpatient (CLI) | payer OTHER, SELFPAY ==
[2019-11-26 11:08] VITALS: BMI 29.5
--- NOTE | 2019-12-17 14:42 | RAD_ITS ---
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 COMPARISON: None. FINDINGS: There is a non-specific bowel gas pattern. Normal visualized soft tissue structures. There is narrowing with cortical sclerosis and osteophyte formation of the sacroiliac joint consistent with degenerative osteoarthritic changes. Normal visualized bilateral superior and inferior pubic rami. Normal pubic symphysis. Normal ischial tuberosities. Normal visualized right femoral head. There is osteoarthritic spur formation of the right acetabular rim. There is mild articular joint space narrowing of the right hip. Normal visualized left femoral head. There is osteoarthritic spur formation of the left acetabular rim. There is mild articular joint space narrowing of the left hip. RAD/Pelvis 1 or 2 Views IMPRESSION: Multilevel degenerative disease as described above, otherwise normal x-ray examination of the pelvis. Electronically Signed: Zaida Haque MD at 2:45 EST , Service support ,
[2019-12-17 15:37] LABS: Absolute Lymphocyte Count 2.35 X10^3/uL (0.83-4.51); Absolute Neutrophil Count 3.7 X10^3/uL (2.0-7.7); Basophil# 0.05 X10^3/uL; Basophil% 0.7 % (0-1); Eosinophils% 2.9 % (0-5); Hematocrit 50.2 % (37-47); Hemoglobin 16.2 g/dL (12.0-15.0); Lymphocyte # 2.35 X10^3/ul (4.0); Mean Corp Hgb Conc 32.3 g/dL (32-36); Mean Corpuscular Hgb 28.7 pg (27.0-32.0); Mean Corpuscular Volume 88.8 fL (81-99); Monocyte# 0.58 X10^3/uL; Monocyte% 8.4 % (0-10); NRBC Flagged by Analyzer 0 % (0-5); Neutrophil # 3.73 X10^3/uL (2.7-7.7); Neutrophil % 53.9 % (47-70); Platelet Count 361 K/mm3 (150-450); RBC Distribution Width CV 12.6 % (11.6-14.6); RBC Distribution Width SD 41.2 fl (35.1-43.9); Red Blood Count 5.65 M/mm3 (4.2-5.4); White Blood Count 6.9 K/mm3 (4.4-11.0)
[2019-12-17 16:01] LABS: ALB/GLOB Ratio 0.9 RATIO (0.9-2.4); AST(SGOT) 20 U/L (15-37); Alanine Aminotransfer ALT/SGPT 29 U/L (13-56); Albumin, Serum 3.6 g/dL (3.2-5.0); Alkaline Phosphatase 101 U/L (45-117); Anion Gap 5 (5-15); BUN 9 mg/dL (7-18); BUN/Creat Ratio 10.3 RATIO (10-20); CRP 4.02 mg/L (0.0-3.0); Calcium,Total 9.1 mg/dL (8.5-10.1); Chloride 102 mmol/L (98-107); Creatinine, Serum 0.87 mg/dL (0.55-1.02); EST Glomerular Filtration Rate 71 mL/min (>60); Est Glom Filt Rate - Afr Amer 86 mL/min (>60); Globulin 3.8 g/dL (2.2-4.2); Glucose 247 mg/dL (74-106); Potassium 3.9 mmol/L (3.5-5.1); Protein, Total 7.4 g/dL (6.4-8.2); Sodium Level 137 mmol/L (136-145)
[2019-12-17 16:09] LABS: Erythrocyte Sedimentation Rate 6 mm/hr (0-30)
[2019-12-17 17:07] LABS: Hepatitis B Surface Antibody Non-Reactive; Hepatitis B Surface Antigen Non-Reactive (Nonreactive); Hepatitis C Antibody Non-Reactive (Nonreactive)
[2019-12-20 16:25] LABS: ANTINUCLEAR ANTIBODIES DIRECT Negative (Negative)
[2019-12-22 20:17] LABS: CCP IgG Antibodies 15 units (0-19); HLA B27 Negative (.); Hepatitis B Core AB IgM Negative (Negative)
== END ==
PROVIDERS: PCP Family Medicine; Referring Provider Internal Medicine Rheumatology; Visit Provider Internal Medicine Rheumatology
DX: M06.4 Inflammatory polyarthropathy (principal); M79.7 Fibromyalgia; M21.40 Flat foot [pes planus] (acquired), unspecified foot; K58.9 Irritable bowel syndrome, unspecified; M50.30 Other cervical disc degeneration, unspecified cervical region; E10.40 Type 1 diabetes mellitus with diabetic neuropathy, unspecified
CPT/HCPCS: 36415; 72170; 80053; 81374; 85025; 85652; 86038; 86140; 86200; 86431; 86705; 86706; 86803; 87340

== ENCOUNTER → 2020-01-19 12:44 | Outpatient (CLI) | payer OTHER, SELFPAY ==
[2020-01-05 10:26] VITALS: BMI 28.9
== END ==
PROVIDERS: PCP Family Medicine; Referring Provider Internal Medicine Cardiovascular Disease; Visit Provider Internal Medicine Cardiovascular Disease
DX: R55 Syncope and collapse (principal); R00.2 Palpitations
CPT/HCPCS: 93225; 93226

== ENCOUNTER → 2020-02-02 09:02 | Outpatient (CLI) | payer OTHER, SELFPAY ==
[2020-01-05 10:26] VITALS: BMI 28.9
--- NOTE | 2020-02-02 09:03 | ECHOD_ITS ---
Reason For Study: Syncope Procedure This was a 2D Doppler, Color Flow transthoracic echocardiogram. Exam performed in department. Left Ventricle Normal LV size. Left ventricular systolic function is normal. The estimated ejection fraction is 60 %. Stage 1 diastolic dysfunction. No regional wall motion abnormalities noted. Right Ventricle Normal RV size. Normal systolic function. Atria Normal left atrium. Normal right atrium. Mitral Valve Normal mitral valve. Tricuspid Valve Normal tricuspid valve. Aortic Valve Normal aortic valve. Trisinus/trileaflet aortic valve. Pulmonic Valve Normal pulmonic valve. Great Vessels Normal aortic root. The pulmonary artery is normal size. Normal inferior vena cava. Pericardium/Pleural No pericardial effusion. MMode/2D Measurements & Calculations LVIDd: 3.4 cm IVSd: 1.2 cm Ao root diam: 3.2 cm LVIDs: 2.1 cm LVPWd: 0.97 cm LA dimension: 2.6 cm FS: 37.8 % LAV(MOD-bp): 20.5 ml LA A4 area: 8.4 cm2 RA A4 area: 7.5 cm2 LAV(MOD-bp) Indexed: 12.5 ml/m2 LAV(MOD-sp2): 22.6 ml LAV(MOD-sp4): 16.4 ml Time Measurements MV dec time: 0.20 sec Doppler Measurements & Calculations MV E max juan: 71.2 cm/sec Lat Peak E' Juan: 7.2 cm/sec Med Peak E' Juan: 6.8 cm/sec MV A max juan: 87.9 cm/sec E/E' lat: 9.9 E/E' med: 10.5 MV E/A: 0.81 MV V2 max: 95.3 cm/sec MV P1/2t max juan: 79.0 cm/sec Ao V2 max: 100.3 cm/sec MV max P.6 mmHg MV P1/2t: 81.3 msec Ao max P.0 mmHg MV V2 mean: 56.8 cm/sec MV dec slope: 284.4 cm/sec2 MV mean P.5 mmHg MVA(P1/2t): 2.7 cm2 MV V2 VTI: 23.1 cm LV V1 max: 81.1 cm/sec PA V2 max: 77.5 cm/sec LV V1 max P.7 mmHg Interpretation Summary Normal LV size. Left ventricular systolic function is normal. The estimated ejection fraction is 60 %. Stage 1 diastolic dysfunction. Ordering Physician: Obdulio Staples Referring Physician: Obdulio Staples Performed By: Seferino Donahue RCS
== END ==
PROVIDERS: PCP Family Medicine; Referring Provider Internal Medicine Cardiovascular Disease; Visit Provider Internal Medicine Cardiovascular Disease
DX: R55 Syncope and collapse (principal)
CPT/HCPCS: 93306

== ENCOUNTER → 2020-07-20 12:02 | Outpatient (CLI) | payer OTHER, SELFPAY ==
[2020-07-17 13:41] VITALS: BMI 26.4
[2020-07-17 14:13] VITALS: BMI 26.5
--- NOTE | 2020-07-20 12:03 | NM_ITS ---
CLINICAL: 55-year-old type I diabetic female with reported history of postprandial abdominal bloating and nausea. SEMI-SOLID PHASE 99m Tc SULFUR COLLOID GASTRIC EMPTYING STUDY COMPARISON: None available FINDINGS: The patient was administered 1.0 mCi of 99m Tc sulfur colloid mixed with oatmeal and consumed per os. Image acquisitions in the anterior-posterior projections for a total of 60 minutes. There is prompt visualization of the stomach. There is no gastroesophageal reflux identified. The T ? linear fit was calculated to be 55.62 minutes, (Normal: 12-56 minutes). NM/Gastric Emptying Study IMPRESSION: 1. NORMAL 99m Tc sulfur colloid semi-solid phase (oatmeal) gastric emptying imaging examination. A. There is upper limits of normal semi-solid phase gastric emptying compared to normal controls. (Tito et al, J Nucl Med Tech 38: 186, 2010). Electronically Signed: Gavino Mcneill DO at 23:21 EDT Tel , Service support ,
== END ==
PROVIDERS: PCP Family Medicine; Referring Provider Surgery; Visit Provider Surgery
DX: R11.2 Nausea with vomiting, unspecified (principal)
CPT/HCPCS: 78264; A9541

== ENCOUNTER 2020-07-26 10:07 | Day surgery (SDC) | payer OTHER, SELFPAY ==
[2020-07-17 14:13] VITALS: BMI 26.5
[2020-07-26] VITALS (7 sets, daily range): BP systolic 95–139; BP diastolic 54–80; PULSE 70–78; RESP 16; TEMP 36–36.6; O2SAT 95–99; BMI 26.2
[2020-07-26] MEDS: Lactated Ringers 1,000 ML 100 ML IV (10:39)
--- NOTE | 2020-07-26 10:55 | HP_ITS ---
Intake Vital Signs 07/17/20 BMI 26.5 07/17/20 Height 5 ft 07/17/20 Weight: 135 lb 9 oz 07/17/20 BP 157/83 H 07/17/20 Blood Pressure Location Rt brachial 07/17/20 Position Sitting 07/17/20 Respiration 20 H 07/17/20 Pulse 86 07/17/20 Temp 97.4 F L 07/17/20 Temp Source Temporal 07/17/20 Pulse Oximetry (%) 98 07/17/20 Oxygen Delivery Method room air Intake Visit Reasons: EGD Chief Complaint: nausea/vomiting Practice Office Associate Required: No Is patient in pain?: No Allergies metoclopramide HCl [From Reglan] Allergy (Verified 07/17/20 13:41) Anaphylaxis Medications Calcium Carbonate [Calcium] 1,200 mg PO DAILY 11/11/16 [History Confirmed 07/17/20] Docusate Sodium [Colace] 200 mg PO BID 11/11/16 [History Confirmed 07/17/20] Fiber PO BID 05/03/18 [History Confirmed 07/17/20] Insulin Pump Cartridge 05/03/18 [History Confirmed 07/17/20] traMADol [Ultram (G)] 100 mg PO DAILY 09/13/19 [History Confirmed 07/17/20] milnacipran 50 mg tablet 50 mg PO DAILY tab 01/05/20 [History Confirmed 07/17/20] cbd oil PO 04/05/20 [History Confirmed 07/17/20] promethazine 12.5 mg tablet 12.5 mg PO TID PRN #30 tab 06/26/20 [Rx Confirmed 07/17/20] Is last menstrual period known: No Post menopausal: Yes Patient : No PFSH Medical History Hyperlipidemia (Chronic) Essential (primary) hypertension (Chronic) Arthritis (Chronic) Back pain (Chronic) Diabetes mellitus type 1 (Chronic) Fibromyalgia (Chronic) GERD (gastroesophageal reflux disease) (Chronic) IBS (irritable bowel syndrome) (Chronic) Low calcium levels (Chronic) Maxillary sinusitis (Chronic) Neuropathy (Chronic) h/o vision problems (Chronic) H/O headache (Resolved) H/O urinary tract infection (Resolved) PCOS (polycystic ovarian syndrome) (Resolved) Trigger finger release (Resolved) Surgical History S/P trigger finger release (Chronic) H/O shoulder surgery (Suspected) H/O: hysterectomy (Resolved) History of appendectomy (Resolved) History of arthroscopy of right shoulder (Resolved) History of hysterectomy (Resolved) History of tonsillectomy (Resolved) Hx of fusion of cervical spine (Resolved) Family History Other Arthritis Asthma Diabetes Hypertension Social History (Updated 07/17/20 @ 14:[address] Tad Pak MD) Smoking Status: Never smoker alcohol intake: never HPI HPI HPI: DEANNE CAO, is a 55 F who presents to the office today for HPI HPI Surgical H&P: Yes HPI: DEANNE CAO, is a 55 F who presents to the office today for Nausea and vomiting. The patient reports that she has had nausea and vomiting since March. She has tried intermittently taking away some of her medications but this did not help. She does not associate with any of her foods. She does not associate with time of day. She says that sometimes she wakes up and immediately vomits sometimes it happens and then 20 minutes later she feels fine is able to eat again. She does say that she does vomit up food that she ate hours ago. ROS General General: Yes fatigue; no weight change, appetite, colon cancer, breast cancer or weakness HEENT HEENT: Yes swollen glands; no difficulty swallowing, eye injury, eye surgery or hoarseness Endo Endocrine: Yes diabetes mellitus; no thyroid disease, thyroid cancer, Hair loss, heat intolerance or cold intolerance Musc Musculoskeletal: Yes rheumatoid arthritis; no back problems, arthritis, gout or joint pain Cardio Cardiovascular: Yes high blood pressure; no murmur, pacemaker, heart disease, atrial fibrillation, heart attack, heart stent, palpitations, shortness of breat with exertion or chest pain Psych Psychiatric: No depression, anxiety or hearing voices Resp Respiratory: Yes shortness of breath, No sleep apnea, No cough, No COPD, No asthma, No emphysema, No wheezing Gastro Gastrointestinal: Yes abdominal pain, Yes nausea or vomiting, No diarrhea, Yes constipation, No blood in stool, Yes acid reflux, Yes hemorrhoids, No ulcers, No gallbladder problem, No black,tarry stools Raheem Hematologic: No blood thinners, No blood disorders, Yes bleeding, No anemia, Yes blood clots Neuro Neurologic: No weakness Exam Const General: cooperative Orientation: alert, oriented x3 HENMT Head: normal to inspection Ears: hearing grossly normal bilaterally Eyes General: appearance normal, both eyes and all related structures Visual Berger: normal visual berger by confrontation Neck Neck: normal visual inspection Chest Chest palpation & inspection: normal inspection of the chest Resp Effort & Inspection: normal respiratory effort Auscultation: clear to auscultation bilaterally Cardio Rate: regular rate Rhythm: regular rhythm Heart Sounds: no murmurs GI Inspection: non-distended Palpation: soft, nontender Musc Cervical Spine: normal cervical lordosis, cervical ROM normal Skin General: no rashes or lesions noted Neuro General: alert, oriented x3 Cranial Nerves: CN's II-XI intact bilaterally Cognition: normal cognition Extrem General: normal to inspection, full ROM Psych Appearance: grossly normal Affect: normal affect Assessment & Plan Problems 1. Projectile vomiting with nausea R11.12 Plan The patient is having nausea and vomiting and she has type 1 diabetes. I believe she may have some component of gastroparesis. The patient may also be having gastric outlet obstruction. She is not having any abdominal pain associated with these episodes and she has been on a PPI for 2 months. I recommend EGD and gastric emptying study. I explained endoscopy in detail to the patient. I explained the risks including but not limited to stroke or heart attack with anesthesia, perforation of the GI tract, bleeding, infection. I explained that any of these could necessitate further emergency surgery. The patient understands and all questions were answered sufficiently. The patient wishes to proceed with procedure. We discussed the current risks associated with COVID-19. While it is understood that there is a community spread of COVID-19, the risk of goldie COVID-19 while at [facility] ([facility]) is very low; however, the risk cannot be completely mitigated because of the community spread of the disease. We discussed in detail the risk of exposure to and/or potential harm posed by the COVID-19 virus with having a surgery/procedure at this time versus the risk of delaying the surgery/procedure. It is not possible to know either the risk of delaying the surgery or procedure or chance of getting an infection with perfect accuracy, but a joint decision was made to proceed at this time with the scheduled surgery/procedure as indicated on the consent form. Patient was notified that we will need to comply with any screening or testing [facility] wishes to perform or that surgery may be delayed for any positive results. Tad Pak MD Pager: [facility] [address] [place] [address], [address] [place] [address] Office: Orders Orders: EGD Today R11.2 Gastric Emptying Study Today R11.2 Coding Level of Care Code Off vis,new,level 4 Diagnoses Projectile vomiting with nausea R11.12 ??Vomiting type: projectile vomiting Time Spent (min) 45 I have re-examined the patient. There are no clinical changes since date of exam.
--- NOTE | 2020-07-26 10:58 | OP.EGD_ITS ---
Patient Name: Court Owusu Procedure Date: 07/26/2020 10:44 AM Date of : 1965 Age: 55 Procedure: Upper GI endoscopy Indications: Persistent vomiting of unknown cause Providers: Tad Pak MD Referring MD: Santino Ruelas Medicines: Monitored Anesthesia Care Patient Profile: This is a 55 year old female. Refer to note in patient chart for documentation of history and physical. Complications: No immediate complications. Estimated blood loss: Minimal. Procedure: Pre-Anesthesia Assessment: - Prior to the procedure, a History and Physical was performed, and patient medications and allergies were reviewed. The patient's tolerance of previous anesthesia was also reviewed. The risks and benefits of the procedure and the sedation options and risks were discussed with the patient. All questions were answered, and informed consent was obtained. Prior Anticoagulants: The patient has taken no previous anticoagulant or antiplatelet agents. After reviewing the risks and benefits, the patient was deemed in satisfactory condition to undergo the procedure. After obtaining informed consent, the endoscope was passed under direct vision. Throughout the procedure, the patient's blood pressure, pulse, and oxygen saturations were monitored continuously. The gastroscope was introduced through the mouth, and advanced to the fourth part of duodenum. The upper GI endoscopy was accomplished without difficulty. The patient tolerated the procedure well. Scope In: 10:51:57 AM Scope Out: 10:54:54 AM Total Procedure Duration Time 0 hours 2 minutes 57 seconds Findings: The esophagus was normal. The stomach was normal. The examined duodenum was normal. Biopsies were taken with a cold forceps in the gastric antrum for Helicobacter pylori testing. Impression: - Normal esophagus. - Normal stomach. - Normal examined duodenum. - Biopsies were taken with a cold forceps for Helicobacter pylori testing. Recommendation: - Await pathology results. - Discharge patient to home. - Resume previous diet. - Continue present medications. Procedure Code(s): --- Professional --- 21329, Esophagogastroduodenoscopy, flexible, transoral; with biopsy, single or multiple Diagnosis Code(s): --- Professional --- R11.10, Vomiting, unspecified CPT copyright 2017 [employer]. All rights reserved. The codes documented in this report are preliminary and upon stopperer assembler review may be revised to meet current compliance requirements. Tad Pak MD 07/26/2020 10:57:41 AM This report has been signed electronically. Number of Addenda: 0 Note Initiated On: 07/26/2020 10:44 AM
--- NOTE | 2020-07-26 10:58 | OP.CCLET_ITS ---
07/26/2020 Santino Ruelas [address] [place] [address] Re : Upper GI endoscopy procedure for Court Owusu Dear Dr. Ruelas This procedure was performed on Sunday, July 26, 2020. My impressions and recommendations are as follows: Impressions : - Normal esophagus. - Normal stomach. - Normal examined duodenum. - Biopsies were taken with a cold forceps for Helicobacter pylori testing. Recommendations : - Await pathology results. - Discharge patient to home. - Resume previous diet. - Continue present medications. My findings are described in the full procedure note, which is enclosed. If I can be of further assistance, please feel free to contact me at Doctor phone number(s): , Work: . Sincerely, Tad Pak MD 07/26/2020 10:57:41 AM This report has been signed electronically.
--- NOTE | 2020-07-26 11:00 | EGD_PTH ---
PATIENT: DEANNE CAO LOC: EN U#:[id number] AGE/SX: 55/F ROOM: RE07/26/[address]: Dr. Tad Pak MD : 1965 BED: DIS: 07/26/2020 SPEC #: [id number] RECD: 07/26/20 14:20 STATUS: CACHORRO RICH #: [id number] GURU: 07/26/20 11:[address]: Tad Pak DEPT: SURGICAL PATHOLOGY RECD BY: Mary Kate Timmons ENTERED: 07/27/20 11:44 SP TYPE: EGD BIOPSY OTHR DR: Dr. Santino Ruelas, DO Tissues: Gastric mucous membrane Procedures: Surgery Specimen Level IV HEADER OPERATION: EGD ([facility] [place]) PRE-OP DIAGNOSIS: Nausea, projectile vomiting TISSUE SUBMITTED: Antrum biopsy for histo and H. pylori MICROSCOPIC DIAGNOSIS Gastric antrum, biopsy: Chronic gastritis. Intestinal metaplasia. No evidence of dysplasia. See comment. AM:flora 07/28/20 COMMENT The results of immunohistochemistry for Helicobacter pylori will be reported separately ([id number]). Immunohistochemistry ([id number]) supports the above diagnosis. MICROSCOPIC DESCRIPTION Slides are reviewed. GROSS DESCRIPTION Received in fixative is one container labeled with the patient's name and designated antrum biopsy. The specimen consists of one irregular fragment of light chambers soft tissue that measures 0.3 x 0.3 x 0.1 cm. The specimen is totally submitted in one cassette. / SJ:flora 07/27/20 TC:3 CPT: 55713
--- NOTE | 2020-07-26 11:00 | IMM_PTH ---
PATIENT: DEANNE CAO LOC: EN U#:[id number] AGE/SX: 55/F ROOM: RE07/26/[address]: Dr. Tad Pak MD : 1965 BED: DIS: 07/26/2020 SPEC #: [id number] RECD: 07/27/20 09:36 STATUS: CACHORRO REQ #: [id number] GURU: 07/26/20 11:[address]: Tad Pak DEPT: IMMUNOHISTOCHEMISTRY RECD BY: Leidy Jeong ENTERED: 07/27/20 09:36 SP TYPE: IMMUNO OTHR DR: Dr. Santino Ruelas DO Tissues: Stomach, NOS Procedures: H Pylori (initial) KI-67 (add) P53 (add) PHYSICIAN & INSTITUTION [place] [id number] SPECIMEN INFORMATION: Tissue Source: Antrum biopsy Clinical Info: Nausea, vomiting Specimen Number: [id number] CPT code: 35394, 64698 METHODOLOGY: Deparaffinized sections of prefer/formalin-fixed tissue or PAP/DQ stained slides are incubated with monoclonal/polyclonal antibodies/oligonucleotide probes. Localization is made via biotin free immunoperoxidase method. Appropriate controls are performed and reacted as expected. Results on target cell population are indicated in the following table: RESULTS: ANTIBODY / CLONE RESULT H Pylori (polyclonal) negative P53 (DO-7) negative Ki-67 (30-9) negative These tests were developed and their performance characteristics determined by [facility]. They may not have been cleared or approved by the U.S. Food and Drug Administration. The FDA has determined that such clearance or approval is not necessary. The above immunohistochemical/dualISH markers are ordered and reviewed by the pathologist. INTERPRETATION: Antrum biopsy: No evidence of dysplasia. Negative for Helicobacter pylori organisms. AM:flora 07/31/20
== END 2020-07-26 11:49 | disposition home or self-care (01) ==
LOC: EN 10:07 → AC 10:08
PROVIDERS: Anesthesiology; PCP Family Medicine; Referring Provider Family Medicine; Visit Provider Surgery
PROC: 0DJ08ZZ Inspection of Upper Intestinal Tract, Via Natural or Artificial Opening Endoscopic (ICD-10-PCS; CPT 43235; principal; 2020-07-26 10:55)
DX: R11.12 Projectile vomiting (principal); E10.40 Type 1 diabetes mellitus with diabetic neuropathy, unspecified; Z96.41 Presence of insulin pump (external) (internal); Z79.4 Long term (current) use of insulin; I10 Essential (primary) hypertension; E78.5 Hyperlipidemia, unspecified; Z79.899 Other long term (current) drug therapy; M19.90 Unspecified osteoarthritis, unspecified site; M79.7 Fibromyalgia; K21.9 Gastro-esophageal reflux disease without esophagitis; K58.9 Irritable bowel syndrome, unspecified; M06.9 Rheumatoid arthritis, unspecified; E28.2 Polycystic ovarian syndrome
CPT/HCPCS: 43239; 87635; 88305; 88341; 88342; 94799; J7120; J2405; U0003

== ENCOUNTER → 2020-08-03 08:18 | Outpatient (CLI) | payer OTHER, SELFPAY ==
[2020-04-05 09:32] VITALS: BMI 28.9
[2020-07-26 10:30] VITALS: BMI 26.2
--- NOTE | 2020-08-03 08:18 | US_ITS ---
STUDY: ABDOMINAL ULTRASOUND - RIGHT UPPER QUADRANT REASON FOR VISIT: Female, 55 years old abd pain , n/v TECHNIQUE: Ultrasound evaluation of the right upper quadrant was performed with real-time and static miller-scale imaging. TECHNICAL QUALITY: Adequate. COMPARISON: Comparison is made with prior study dated 05/03/2018. FINDINGS: Liver: The liver measures 14.3 cm. There is normal echogenicity of the liver. The bile ducts are within normal limits. There is hepatic color flow. The direction of portal flow is hepatopetal. There is no demonstrated mass lesion. Gallbladder: Normal distended gallbladder. The gallbladder wall measures 2.4 mm. There is a negative sonographic Vargas''s sign. There is no pericholecystic fluid. There are no gallstones. Common Bile Duct (C.B.D.): The common bile duct measures 1.6 mm. Pancreas: Normal size of the head, body and tail of the pancreas. There is normal echogenicity of the pancreas. There is no demonstrated pancreatic mass or cyst. Right Kidney: Normal size of the right kidney. The right kidney measures 9.1 cm x 4.8 cm x 4.6 cm. Normal renal cortex. The right cortex measures 2.2 cm. There is no demonstrated renal mass or cyst. There is no right hydronephrosis. US/Gallbladder IMPRESSION: Normal right upper quadrant ultrasound examination. Electronically Signed: Fidel Monroy, at 10:22 EDT , Service support ,
== END ==
PROVIDERS: PCP Family Medicine; Referring Provider Nurse Practitioner; Visit Provider Nurse Practitioner
DX: R11.2 Nausea with vomiting, unspecified (principal); R10.13 Epigastric pain
CPT/HCPCS: 76705

== ENCOUNTER → 2021-05-26 09:28 | Outpatient (CLI) | payer OTHER, SELFPAY ==
[2020-07-26 10:30] VITALS: BMI 26.2
[2021-05-26 10:19] LABS: Absolute Lymphocyte Count 2.67 X10^3/uL (0.83-4.51); Absolute Neutrophil Count 3.6 X10^3/uL (2.0-7.7); Basophil# 0.05 X10^3/uL; Basophil% 0.7 % (0-1); Eosinophil# 0.15 X10^3/uL; Eosinophils% 2.1 % (0-5); Hematocrit 50.5 % (37-47); Hemoglobin 16.9 g/dL (12.0-15.0); Lymphocyte # 2.67 X10^3/ul; Mean Corp Hgb Conc 33.5 g/dL (32-36); Mean Corpuscular Hgb 29.5 pg (27.0-32.0); Mean Corpuscular Volume 88.1 fL (81-99); Mean Platelet Vol. 10.3 fl (6.2-12.0); Monocyte# 0.71 X10^3/uL; Monocyte% 9.8 % (0-10); NRBC Flagged by Analyzer 0 % (0-5); Neutrophil # 3.61 X10^3/uL (2.7-7.7); Neutrophil % 50.1 % (47-70); Platelet Count 375 K/mm3 (150-450); RBC Distribution Width CV 12.4 % (11.6-14.6); RBC Distribution Width SD 40.2 fl (35.1-43.9); Red Blood Count 5.73 M/mm3 (4.2-5.4); White Blood Count 7.2 K/mm3 (4.4-11.0)
[2021-05-26 10:28] LABS: Color, Urine Yellow (Yellow); Glucose, Dipstick Normal (Normal); Ketone-Dipstick Negative (Negative); Leukocyte Esterase-Dipstick Negative /ul (Negative); Nitrite-Dipstick Negative (Negative); Occult Blood-Urine Negative /ul (Negative); Protein-Dipstick Negative (Negative); Specific Gravity, Urine 1.015 (1.002-1.030); Urine Bilirubin Dipstick Negative (Negative); Urine Clarity Clear (Clear); Urine Urobilinogen Normal (Normal)
[2021-05-26 10:40] LABS: Hemoglobin A1c 7.9 % (3.8-5.6)
[2021-05-26 10:54] LABS: ALB/GLOB Ratio 1.1 RATIO (0.9-2.4); AST(SGOT) 26 U/L (15-37); Alanine Aminotransfer ALT/SGPT 30 U/L (13-56); Albumin, Serum 3.7 g/dL (3.2-5.0); Alkaline Phosphatase 124 U/L (45-117); Anion Gap 8 (5-15); BUN 10 mg/dL (7-18); BUN/Creat Ratio 12.9 RATIO (10-20); Bilirubin, Direct 0.14 mg/dL (0.00-0.30); Calcium,Total 8.7 mg/dL (8.5-10.1); Chloride 101 mmol/L (98-107); Cholesterol 233 mg/dL (200); Creatinine, Serum 0.77 mg/dL (0.55-1.02); EST Glomerular Filtration Rate 81 mL/min (>60); Est Glom Filt Rate - Afr Amer 99 mL/min (>60); Globulin 3.5 g/dL (2.2-4.2); Glucose 174 mg/dL (74-106); High Density Lipoprotein 71 mg/dL; LDH 212 U/L (84-246); Phosphorus 3.7 mg/dL (2.5-4.9); Potassium 4.2 mmol/L (3.5-5.1); Protein, Total 7.2 g/dL (6.4-8.2); Sodium Level 135 mmol/L (136-145); Triglycerides 61 mg/dL; Uric Acid 3.5 mg/dL (2.6-6.0); Very Low Density Lipoprotein 12 mg/dL (5-40)
== END ==
PROVIDERS: PCP Family Medicine; Referring Provider Family Medicine; Visit Provider Family Medicine
DX: Z00.00 Encounter for general adult medical examination without abnormal findings (principal); E10.49 Type 1 diabetes mellitus with other diabetic neurological complication
CPT/HCPCS: 36415; 83036

== ENCOUNTER → 2021-06-30 08:46 | Outpatient (CLI) | payer OTHER, SELFPAY ==
[2020-07-26 10:30] VITALS: BMI 26.2
--- NOTE | 2021-06-30 07:12 | CT_ITS ---
STUDY: CT MAXILLOFACIAL SINUSES REASON FOR EXAM: Female, 56 years old. FRONTAL HEADACHES RADIATION DOSAGE (If Supplied By Facility): CTDIvol = ( 33.06 ) mGy, DLP = ( 898.05 ) mGycm TECHNIQUE: The patient was scanned in a multi detector CT scanner. High resolution axial imaging was performed without the administration of intravenous contrast material. Sagittal and coronal images were reconstructed. Individualized dose optimization techniques were used for this CT. COMPARISON: None. FINDINGS: FRONTAL SINUSES: Normal aeration, without mucosal inflammatory disease. ETHMOIDAL SINUSES: Normal aeration, without mucosal inflammatory disease. MAXILLARY SINUSES: Normal aeration, without mucosal inflammatory disease. SPHENOIDAL SINUSES: Normal aeration, without mucosal inflammatory disease. There is patency of the bilateral maxillary infundibuli with normal uncinate processes, ethmoid bullae, and hiatus semilunaris. Normal bilateral middle turbinates. Normal bilateral inferior turbinates. Normal midline nasal septum. There is patency of the bilateral nasal airways. The visualized osseous structures are normal. The visualized bilateral orbital contents are normal. CT/Sinus/Facial Bone IMPRESSION: Normal CT examination of the maxillofacial sinuses. Electronically Signed: Gavino Reyes MD at 10:34 EDT Tel , Service support ,
== END ==
PROVIDERS: PCP Family Medicine; Referring Provider Family Medicine; Visit Provider Family Medicine
DX: R51.9 Headache, unspecified (principal)
CPT/HCPCS: 70486

== ENCOUNTER 2021-12-18 07:39 | Outpatient (CLI) | payer OTHER, SELFPAY ==
[2021-12-18 08:52] LABS: Hemoglobin A1c 7.6 % (3.8-5.6)
== END 2021-12-18 23:59 | disposition short-term general hospital (02) ==
PROVIDERS: PCP Family Medicine; Referring Provider Family Medicine; Visit Provider Family Medicine
DX: E10.49 Type 1 diabetes mellitus with other diabetic neurological complication (principal)
CPT/HCPCS: 36415; 83036

== ENCOUNTER → 2022-03-29 | Outpatient (CLI) | payer OTHER, SELFPAY ==
[2022-03-29 15:22] LABS: Hematocrit 48.7 % (37-47); Hemoglobin 16.4 g/dL (12.0-15.0); Mean Corp Hgb Conc 33.7 g/dL (32-36); Mean Corpuscular Hgb 29.8 pg (27.0-32.0); Mean Corpuscular Volume 88.5 fL (81-99); Mean Platelet Vol. 9.2 fl (6.2-12.0); Platelet Count 389 K/mm3 (150-450); RBC Distribution Width CV 13.1 % (11.6-14.6); RBC Distribution Width SD 42.5 fl (35.1-43.9); White Blood Count 11.6 K/mm3 (4.4-11.0)
[2022-03-29 15:41] LABS: Anion Gap 4 (5-15); BUN 15 mg/dL (7-18); BUN/Creat Ratio 17.3 RATIO (10-20); Calcium,Total 8.9 mg/dL (8.5-10.1); Chloride 104 mmol/L (98-107); Creatinine, Serum 0.86 mg/dL (0.55-1.02); EST Glomerular Filtration Rate 71 mL/min (>60); Est Glom Filt Rate - Afr Amer 86 mL/min (>60); Glucose 214 mg/dL (74-106); Potassium 4.5 mmol/L (3.5-5.1); Sodium Level 136 mmol/L (136-145)
== END | disposition home or self-care (01) ==
LOC: LAB 15:10
PROVIDERS: PCP Family Medicine; Referring Provider Urology; Visit Provider Urology
DX: Z01.818 Encounter for other preprocedural examination (principal)
CPT/HCPCS: 36415; 80048; 85027

== ENCOUNTER 2022-04-02 06:01 | Day surgery (SDC) | payer OTHER, SELFPAY ==
[2022-04-01 09:19] LABS: AST(SGOT) 19 U/L (15-37); Alanine Aminotransfer ALT/SGPT 28 U/L (13-56); Albumin, Serum 3.8 g/dL (3.2-5.0); Alkaline Phosphatase 102 U/L (45-117); Globulin 3.4 g/dL (2.2-4.2); Protein, Total 7.2 g/dL (6.4-8.2)
[2022-04-01 10:01] LABS: Hemoglobin A1c 7.6 % (3.8-5.6)
[2022-04-01 10:34] LABS: International Normalized Ratio 0.9; Partial Thromboplast Time 29.6 Seconds (24.1-36.2)
--- NOTE | 2022-04-01 12:07 | EKG12_ITS ---
Test Reason : PRE-OP Blood Pressure : / mmHG Vent. Rate : 090 BPM Atrial Rate : 090 BPM P-R Int : 144 ms QRS Dur : 090 ms QT Int : 398 ms P-R-T Axes : 067 -51 063 degrees QTc Int : 486 ms Normal sinus rhythm Left anterior fascicular block Prolonged QT Abnormal ECG Confirmed by MISSY HERNANDEZ, TOM ([id number]), video editor DESTIN FRAUSTO ([id number]) on 04/01/2022 1:12:38 PM Referred By: Ayla Soto Confirmed By:TOM LOUIS MD
[2022-04-02] VITALS (9 sets, daily range): BP systolic 111–138; BP diastolic 59–78; PULSE 75–98; RESP 16–18; TEMP 36.3–36.8; O2SAT 92–100; BMI 28.3
[2022-04-02] MEDS: Lactated Ringers 1,000 ML 15 ML IV (06:43)
[2022-04-02] MEDS: Dextrose 50%-Water 25 GM/50 ML DISP.SYRIN IV (07:09)
--- NOTE | 2022-04-02 07:24 | PCM.OPRPT ---
Problems Associated Problem List Diagnoses (1) MOHINDER (stress urinary incontinence, female): Report of Operation Date of Procedure: 04/02/22 Pre-Operative Diagnosis: Stress incontinence Post-Operative Diagnosis: Same Surgery/Procedure Performed:: Mid urethral sling, cystoscopy Surgeon: Ayla Soto Type of Anesthesia: General Description of Procedure: The patient is a 57-year-old female with stress urinary incontinence who presents for surgical intervention after undergoing urodynamics and evaluation in the place. Informed consent was obtained. The patient was taken to the operating room and placed on the operating room table. Anesthesia monitored the head, neck, airway, IV access and vital signs throughout the case. Once anesthesia was appropriate ministered, the patient was placed into dorsolithotomy and Trendelenburg position was prepped and draped in usual sterile fashion. A 16 Upper Sorbian Heredia catheter was inserted to straight drain and the bladder was emptied. The mid urethra was isolated and injected submucosally with 1% lidocaine with epinephrine for hydrostatic dissection and hemostatic control. A midline vertical 2 cm incision was then made and sharp and blunt dissection was performed on either side of the urethra with care being taken to avoid entrance into the vaginal mucosa or the urethra. At this time the trochars were used to pass the Altis mid urethral sling into the obturator complexes bilaterally. The sling lay flat against the urethra without tension. The tensioning suture was cut in the midline incision was closed using running interlocking 2-0 Vicryl. The Heredia catheter was removed and a cystourethroscopy was performed with insertion of the cystoscope through the urethra under direct visualization. Injuries to the urethra or the urinary bladder identified. The bladder mucosa was visualized and found to be within normal limit. At this time the cystoscope was removed and the case was terminated. The patient was awakened and taken to the recovery room in good condition. There were no complications during this procedure. Grafts/Implants Used: Altis mid urethral sling Complications none Admit VTE Documentation VTE Present on Admission: Yes VTE Mechan Device Prophylaxis: SCD's VTE Pharm Prophylaxis ordered?: No Reason prophylaxis not ordered:: Treatment Not Indicated
--- NOTE | 2022-04-02 07:29 | DCINST_ITS ---
Discharge Instructions Diet Discharge Diet: No restrictions Activity Discharge Activity: May Drive (When not taking pain medications) and May Shower May resume sexual activity in: 4 weeks Lifting Restrictions: 5 pounds for 4 weeks Additional Activity Instructions:: No strenuous activity or exercise, no sexual activity, no hot tubs, no tub bathing and no swimming Dressing / Incision Call your doctor if your incision/area has: Continuous Slow Oozing, Sudden Increased Bleeding, Increased Pain/ Swelling and Foul Smelling Discharge Call your doctor if you observe: Fever of 101 or Higher, Inability to urinate and Inability to have a bowel movement Follow Up Care Please Follow Up With: Ayla Soto MD When: In the office in 2 weeks, call for appointment Test Results: Test results from this visit will be discussed in further detail at your follow-up appointment, if applicable. Discharge Plan Admission Attending Provider: Ayla Soto Primary Care Provider: Santino Ruelas Discharge Orders/Prescriptions Prescriptions: New cephalexin [cephalexin] 500 MG capsule 500 mg PO Q12 3 Days Qty: 6 RF: 0 Continued calcium carbonate 600 MG tablet 1,200 mg PO DAILY RF: 0 docusate sodium 100 MG capsule 250 mg PO BID RF: 0 Fiber 1 cap PO BID RF: 0 Insulin Pump Cartridge 1 unit SQ CONT RF: 0 tramadol 50 MG tablet 100 mg PO DAILY RF: 0 quinapril 40 MG tablet 40 mg PO DAILY RF: 0 omeprazole 20 MG capsule 40 mg PO DAILY PRN (Reason: reflux) RF: 0 sennosides [Senokot] 8.6 mg Tablet 8.6 mg PO DAILY RF: 0 pravastatin 80 mg Tablet 80 mg PO QHS RF: 0 folic acid 1 mg Tablet 1 mg PO TH RF: 0 methotrexate (PF) 7.5 mg/0.3 mL Syringe 6 mg SUBCUT TH RF: 0 amitriptyline 50 mg Tablet 50 mg PO QHS RF: 0 Other Ambulatory Orders: 12 Lead EKG (Routine) Timeframe: [id number] Facility: [facility] - Location: Cardiovascular Services Ordered By: Dr. Devan Rosa Referrals / Follow Up: Santino Ruelas DO [Primary Care Provider] - Disposition Disposition (needs filled in before D/C Order can be placed): Home, Self Care
[2022-04-02] MEDS: Cefazolin 2 GM in 0.9% Normal Saline 100 ML IV (07:43)
[2022-04-02] MEDS: Lidocaine 1% /Epi 1:100 (20ml) 20 ML Vial (07:50)
[2022-04-02] MEDS: Lubricating Jelly 60 GM Tube 30 GM (07:50)
[2022-04-02] MEDS: oxyCODONE 5 MG Tablet PO (09:45)
[2022-04-02] MEDS: Acetaminophen 325 MG Tablet PO (09:45)
[2022-04-02 11:36] LABS: Bedside Glucose 170 mg/dL (74-106)
== END 2022-04-02 12:28 | disposition home or self-care (01) ==
LOC: SDC 06:01 → AC 06:02
PROVIDERS: Anesthesiology; PCP Family Medicine; Referring Provider Urology; Visit Provider Urology
PROC: 0TJB8ZZ Inspection of Bladder, Via Natural or Artificial Opening Endoscopic (ICD-10-PCS; CPT 57288; principal; 2022-04-02 07:20)
DX: N39.3 Stress incontinence (female) (male) (principal); N95.2 Postmenopausal atrophic vaginitis; R35.1 Nocturia; K59.04 Chronic idiopathic constipation; N39.41 Urge incontinence; I10 Essential (primary) hypertension; K21.9 Gastro-esophageal reflux disease without esophagitis; E78.5 Hyperlipidemia, unspecified; R05.3 Chronic cough; R94.31 Abnormal electrocardiogram [ECG] [EKG]
CPT/HCPCS: 57288; 00860; 36415; 80076; 82962; 83036; 85610; 85730; 87086; 87088; 93005; J7120; J1610; J2405

== ENCOUNTER → 2022-06-24 | Outpatient (CLI) | payer OTHER, SELFPAY ==
[2022-06-24 10:20] LABS: Hemoglobin A1c 7.6 % (3.8-5.6)
[2022-06-24 10:21] LABS: Absolute Lymphocyte Count 2.37 X10^3/uL (0.83-4.51); Absolute Neutrophil Count 3.3 X10^3/uL (2.0-7.7); Basophil# 0.05 X10^3/uL; Basophil% 0.7 % (0-1); Eosinophil# 0.19 X10^3/uL; Eosinophils% 2.8 % (0-5); Hematocrit 46.7 % (37-47); Lymphocyte # 2.37 X10^3/ul (0.83-4.51); Lymphocyte % 35.4 % (19-41); Mean Corp Hgb Conc 34.3 g/dL (32-36); Mean Corpuscular Hgb 31.7 pg (27.0-32.0); Mean Corpuscular Volume 92.7 fL (81-99); Monocyte# 0.75 X10^3/uL; Monocyte% 11.2 % (0-10); NRBC Flagged by Analyzer 0 % (0-5); Neutrophil # 3.32 X10^3/uL (2.7-7.7); Neutrophil % 49.8 % (47-70); Platelet Count 343 K/mm3 (150-450); RBC Distribution Width CV 13.2 % (11.6-14.6); RBC Distribution Width SD 44.5 fl (35.1-43.9); Red Blood Count 5.04 M/mm3 (4.2-5.4); White Blood Count 6.7 K/mm3 (4.4-11.0)
[2022-06-24 10:51] LABS: ALB/GLOB Ratio 1.1 RATIO (0.9-2.4); AST(SGOT) 23 U/L (15-37); Alanine Aminotransfer ALT/SGPT 28 U/L (13-56); Albumin, Serum 3.5 g/dL (3.2-5.0); Alkaline Phosphatase 101 U/L (45-117); Anion Gap 6 (5-15); BUN 9 mg/dL (7-18); BUN/Creat Ratio 10.9 RATIO (10-20); Calcium,Total 8.8 mg/dL (8.5-10.1); Chloride 108 mmol/L (98-107); Cholesterol 191 mg/dL (200); Creatinine, Serum 0.82 mg/dL (0.55-1.02); EST Glomerular Filtration Rate 76 mL/min (>60); Est Glom Filt Rate - Afr Amer 91 mL/min (>60); Globulin 3.2 g/dL (2.2-4.2); Glucose 116 mg/dL (74-106); High Density Lipoprotein 59 mg/dL; Potassium 4.1 mmol/L (3.5-5.1); Protein, Total 6.7 g/dL (6.4-8.2); Sodium Level 142 mmol/L (136-145); Triglycerides 95 mg/dL; Very Low Density Lipoprotein 19 mg/dL (5-40)
== END | disposition home or self-care (01) ==
LOC: LAB 09:15
PROVIDERS: PCP Family Medicine; Visit Provider Family Medicine
DX: E10.49 Type 1 diabetes mellitus with other diabetic neurological complication (principal); E78.5 Hyperlipidemia, unspecified; Z51.81 Encounter for therapeutic drug level monitoring
CPT/HCPCS: 36415; 80053; 80061; 83036; 85025

== ENCOUNTER → 2022-09-27 | Outpatient (CLI) | payer OTHER, SELFPAY ==
[2022-09-27 15:51] LABS: Absolute Lymphocyte Count 2.64 X10^3/uL (0.83-4.51); Absolute Neutrophil Count 4.3 X10^3/uL (2.0-7.7); Basophil# 0.04 X10^3/uL; Basophil% 0.5 % (0-1); Eosinophil# 0.22 X10^3/uL; Eosinophils% 2.8 % (0-5); Hemoglobin 15.9 g/dL (12.0-15.0); Lymphocyte # 2.64 X10^3/ul (0.83-4.51); Lymphocyte % 33.9 % (19-41); Mean Corp Hgb Conc 34.6 g/dL (32-36); Mean Corpuscular Hgb 31.7 pg (27.0-32.0); Mean Corpuscular Volume 91.6 fL (81-99); Mean Platelet Vol. 10.8 fl (6.2-12.0); Monocyte% 7.7 % (0-10); NRBC Flagged by Analyzer 0 % (0-5); Neutrophil # 4.27 X10^3/uL (2.7-7.7); Neutrophil % 54.8 % (47-70); Platelet Count 386 K/mm3 (150-450); RBC Distribution Width CV 13.2 % (11.6-14.6); RBC Distribution Width SD 44.5 fl (35.1-43.9); Red Blood Count 5.02 M/mm3 (4.2-5.4); White Blood Count 7.8 K/mm3 (4.4-11.0)
[2022-09-27 16:20] LABS: ALB/GLOB Ratio 1.1 RATIO (0.9-2.4); AST(SGOT) 30 U/L (15-37); Alanine Aminotransfer ALT/SGPT 39 U/L (13-56); Albumin, Serum 3.6 g/dL (3.2-5.0); Alkaline Phosphatase 123 U/L (45-117); Anion Gap 6 (5-15); BUN 10 mg/dL (7-18); BUN/Creat Ratio 14.2 RATIO (10-20); Calcium,Total 8.5 mg/dL (8.5-10.1); Chloride 106 mmol/L (98-107); Creatinine, Serum 0.71 mg/dL (0.55-1.02); EST Glomerular Filtration Rate 90 mL/min (>60); Est Glom Filt Rate - Afr Amer 109 mL/min (>60); Globulin 3.2 g/dL (2.2-4.2); Glucose 128 mg/dL (74-106); Potassium 3.5 mmol/L (3.5-5.1); Protein, Total 6.8 g/dL (6.4-8.2); Sodium Level 140 mmol/L (136-145)
== END | disposition home or self-care (01) ==
LOC: LAB 13:24
PROVIDERS: PCP Family Medicine; Visit Provider Family Medicine
DX: Z51.81 Encounter for therapeutic drug level monitoring (principal)
CPT/HCPCS: 36415; 80053; 85025

== ENCOUNTER → 2022-12-30 | Outpatient (CLI) | payer OTHER, SELFPAY ==
[2022-12-30 16:05] LABS: ALB/GLOB Ratio 1.2 RATIO (0.9-2.4); AST(SGOT) 24 U/L (15-37); Alanine Aminotransfer ALT/SGPT 32 U/L (13-56); Albumin, Serum 3.8 g/dL (3.2-5.0); Alkaline Phosphatase 116 U/L (45-117); Anion Gap 11 (5-15); BUN 9 mg/dL (7-18); BUN/Creat Ratio 10.9 RATIO (10-20); Calcium,Total 9.1 mg/dL (8.5-10.1); Chloride 105 mmol/L (98-107); Creatinine, Serum 0.82 mg/dL (0.55-1.02); EST Glomerular Filtration Rate 75 mL/min (>60); Est Glom Filt Rate - Afr Amer 91 mL/min (>60); Globulin 3.2 g/dL (2.2-4.2); Glucose 112 mg/dL (74-106); Potassium 3.7 mmol/L (3.5-5.1); Sodium Level 141 mmol/L (136-145)
[2022-12-30 16:30] LABS: Absolute Lymphocyte Count 2.76 X10^3/uL (0.83-4.51); Absolute Neutrophil Count 6.3 X10^3/uL (2.0-7.7); Basophil# 0.05 X10^3/uL; Basophil% 0.5 % (0-1); Eosinophil# 0.18 X10^3/uL; Eosinophils% 1.8 % (0-5); Hemoglobin 16.2 g/dL (12.0-15.0); Lymphocyte # 2.76 X10^3/ul; Lymphocyte % 27.5 % (19-41); Mean Corp Hgb Conc 34.5 g/dL (32-36); Mean Platelet Vol. 10.3 fl (6.2-12.0); Monocyte# 0.74 X10^3/uL; Monocyte% 7.4 % (0-10); NRBC Flagged by Analyzer 0 % (0-5); Neutrophil # 6.28 X10^3/uL (2.7-7.7); Neutrophil % 62.5 % (47-70); Platelet Count 392 K/mm3 (150-450); RBC Distribution Width CV 13.2 % (11.6-14.6); RBC Distribution Width SD 43.8 fl (35.1-43.9); Red Blood Count 5.22 M/mm3 (4.2-5.4)
[2022-12-30 16:51] LABS: ALB/GLOB Ratio 1.2 RATIO (0.9-2.4); AST(SGOT) 31 U/L (15-37); Alanine Aminotransfer ALT/SGPT 31 U/L (13-56); Albumin, Serum 3.9 g/dL (3.2-5.0); Alkaline Phosphatase 122 U/L (45-117); Anion Gap 11 (5-15); BUN 9 mg/dL (7-18); BUN/Creat Ratio 10.6 RATIO (10-20); Bilirubin, Direct 0.15 mg/dL (0.00-0.30); Calcium,Total 8.8 mg/dL (8.5-10.1); Chloride 108 mmol/L (98-107); Cholesterol 212 mg/dL (200); Creatinine, Serum 0.85 mg/dL (0.55-1.02); EST Glomerular Filtration Rate 72 mL/min (>60); Est Glom Filt Rate - Afr Amer 88 mL/min (>60); Globulin 3.3 g/dL (2.2-4.2); Glucose 113 mg/dL (74-106); High Density Lipoprotein 69 mg/dL; LDH 263 U/L (84-246); Phosphorus 3.7 mg/dL (2.5-4.9); Potassium 3.8 mmol/L (3.5-5.1); Protein, Total 7.2 g/dL (6.4-8.2); Sodium Level 143 mmol/L (136-145); Triglycerides 194 mg/dL; Uric Acid 4.1 mg/dL (2.6-6.0); Very Low Density Lipoprotein 39 mg/dL (5-40)
[2022-12-31 14:55] LABS: Hemoglobin A1c 7.8 % (3.8-5.6)
== END | disposition home or self-care (01) ==
PROVIDERS: PCP Family Medicine; Referring Provider Family Medicine; Visit Provider Family Medicine
DX: M06.9 Rheumatoid arthritis, unspecified (principal); E10.49 Type 1 diabetes mellitus with other diabetic neurological complication; Z51.81 Encounter for therapeutic drug level monitoring
CPT/HCPCS: 36415; 80053; 83036

== ENCOUNTER → 2023-02-26 | Outpatient (CLI) | payer OTHER, SELFPAY ==
--- NOTE | 2023-02-26 09:48 | RAD_ITS ---
STUDY: X-RAY - LUMBAR SPINE REASON FOR EXAM: Female, 58 years old. LBP - FALL TECHNIQUE: 4 view(s) of the lumbar spine were obtained including oblique views. COMPARISON: None FINDINGS: Normal lumbar lordosis. There is no substantial scoliosis. There is a normal alignment of the vertebrae. There is multilevel endplate spondylosis of the lumbar vertebrae. There is multi-level degenerative disc disease with multi-level disc space narrowing. Minimal loss of height of the superior endplate of the L2 vertebrae. Slight irregularity along its anterior aspect. A compression fracture should be ruled out. Large amount of fecal material is seen in the colon. RAD/L/S Spine Min 4 Views IMPRESSION: Degenerative changes of the spine, as detailed above. Mild degree of loss of height of the superior endplate of the L2 vertebra with irregularity along its anterior aspect suggestive of a compression fracture. Electronically Signed: Fidel Monroy MD at 11:11 EDT ,
== END | disposition home or self-care (01) ==
LOC: MTRAD 09:46
PROVIDERS: PCP Family Medicine; Referring Provider Family Medicine; Visit Provider Family Medicine
DX: M54.50 Low back pain, unspecified (principal)
CPT/HCPCS: 72110

== ENCOUNTER → 2023-03-11 | Outpatient (CLI) | payer OTHER, SELFPAY ==
--- NOTE | 2023-03-11 10:50 | RAD_ITS ---
STUDY: X-RAY - LUMBAR SPINE REASON FOR EXAM: Female, 58 years old. Back pain. TECHNIQUE: 3 view(s) of the lumbar spine were obtained. COMPARISON: None FINDINGS: Osteopenia. Normal lumbar lordosis. There is no substantial scoliosis. There is a normal alignment of the vertebrae. Diffuse lower thoracic and lumbosacral facet sclerosis. Mild anterior wedging of the L2 vertebral body, age undetermined. Diffuse mild intervertebral disc space narrowing with small osteophytes. Normal soft tissues. RAD/Lumbar Spine 2 or 3 Views IMPRESSION: Osteopenia with mild anterior wedging of the L2 vertebral body, age indeterminant. Mild diffuse thoracic and lumbosacral spondylosis. Electronically Signed: Jose L Acevedo, at 13:30 EDT ,
== END | disposition home or self-care (01) ==
LOC: MTRAD 10:47
PROVIDERS: PCP Family Medicine; Referring Provider Orthopaedic Surgery; Visit Provider Orthopaedic Surgery
DX: M54.50 Low back pain, unspecified (principal)
CPT/HCPCS: 72100

== ENCOUNTER → 2023-03-19 | Outpatient (CLI) | payer OTHER, SELFPAY ==
--- NOTE | 2023-03-19 09:10 | BD_ITS ---
STUDY: DUAL ENERGY X-RAY ABSORPTIOMETRY / DXA REASON FOR EXAM: Female, 58 years old. [id number] TECHNIQUE: Bone Mineral Density (BMD) measurements of lumbar spine and bilateral hips were obtained. COMPARISON: None. FINDINGS: Lumbar Spine (L1-L4): g/cm2 (1.086) / T-score (0.4) / Z-score (1.8) Findings are suggestive of normal bone density with a low fracture risk. Left Femur Total: g/cm2 (0.894) / T-score (-0.4) / Z-score (0.6) Left Femoral Neck: g/cm2 (0.645) / T-score (-1.8) / Z-score (-0.6) Right Femur Total: g/cm2 (0.774) / T-score (-1.4) / Z-score (-0.4) Right Femoral Neck: g/cm2 (0.578) / T-score (-2.4) / Z-score (-1.2) BD/Dexa Bone Density Study IMPRESSION: The patient is considered osteopenic as outlined below according to World Vern Organization (WHO) criteria with a high fracture risk. Reference Information: The T-score is the number of standard deviations above or below the standard which is normal for young adults at their peak bone mineral density. The World Health Organization (WHO) interprets the T-scores as follows: Above -1 Normal bone density Between -1 and -2.5 Osteopenia Equal to / or below -2.5 Osteoporosis As a practical clinical guideline, osteopenia may be graded as follows: Mild -1 through -1.5 Moderate -1.6 through -2.0 Severe -2.1 through -2.4 The Z-score is the number of standard deviations above or below age-matched controls. A Z-score of less than -1.5 would be considered abnormal. References: 1. NIH Osteoporosis and Related Bone Diseases www osteo.org 2. International Society for Clinical Densitometry www iscd.org 3. National Osteoporosis Foundation www nof.org Electronically Signed: Fidel Monroy MD at 13:22 EDT ,
== END | disposition home or self-care (01) ==
LOC: OPBD 09:01
PROVIDERS: PCP Family Medicine; Referring Provider Family Medicine; Visit Provider Family Medicine
DX: S32.000A Wedge compression fracture of unspecified lumbar vertebra, initial encounter for closed fracture (principal)
CPT/HCPCS: 77080

== ENCOUNTER → 2023-03-22 | Outpatient (CLI) | payer OTHER, SELFPAY ==
--- NOTE | 2023-03-22 08:47 | MRI_ITS ---
STUDY: MRI LUMBAR SPINE WITHOUT CONTRAST REASON FOR EXAM: Female, 58 years old. Compression fx, LOW BACK PAIN, RT HIP PAIN TECHNIQUE: Standardized fat and water weighted pulse sequences were obtained in the sagittal and axial planes. COMPARISON: Lumbar spine radiographs 02/26/2023 and 03/11/2023. FINDINGS: T11-T12: (Sagittal only). Normal endplates. Normal disc height, hydration and morphology. Normal central canal and bilateral intervertebral neural foramina. T12-L1: Normal endplates. Normal disc height, hydration and morphology. Normal bilateral facet joints. Normal central canal and bilateral lateral recesses. Normal bilateral intervertebral neural foramina. Normal lumbar lordosis. There is no substantial scoliosis. Normal conus medullaris that terminates at the lower L1 vertebral body level. L1-2: Normal L1 inferior endplate. Mild anterior wedge compression fracture of the upper L2 vertebral body with vertebral marrow edema underneath the superior endplate. This is most in keeping with recent fracture. This accounts for the mild increase anterior disc space height. No ventral extradural defect. Normal facet joints. Normal central canal and bilateral lateral recesses. Normal bilateral intervertebral neural foramina. L2-3: Schmorl''s nodes in the vertebral endplates. Moderate disc space height narrowing. Mild ventral extradural defect due to small posterior bulging annulus. Normal facet joints. Normal central canal and bilateral lateral recesses. Normal bilateral intervertebral neural foramina. L3-4: Normal endplates. Schmorl''s nodes in the vertebral endplates. Moderate disc space height narrowing. Mild ventral extradural defect due to small posterior bulging annulus. Normal facet joints. Normal central canal and bilateral lateral recesses. Normal bilateral intervertebral neural foramina. L4-5: Normal endplates. Normal disc height, hydration and morphology. Normal bilateral facet joints. Normal central canal and bilateral lateral recesses. Normal bilateral intervertebral neural foramina. L5-S1: Normal endplates. Normal disc height, hydration and morphology. Normal bilateral facet joints. Normal central canal and bilateral lateral recesses. Normal bilateral intervertebral neural foramina. Normal visualized sacral ala. Normal visualized paraspinous soft tissue structures. MRI/Spine Lumbar (Routine) IMPRESSION: 1. Mild recent compression fracture of the upper L2 vertebral body. This correlates with the acute anterior wedge compression fracture of the upper L2 vertebral body initially visualized on 02/26/2023. This is feasible for kyphoplasty if patient has debilitating back pain. 2. Small posterior bulging annulus at L2-L3 and L3-L4 disc space levels. 3. No MRI evidence of lumbar disc extrusion, disc protrusion or spinal stenosis. Electronically Signed: Fernando Verma MD at 10:12 EDT ,
== END | disposition home or self-care (01) ==
LOC: MRI 08:44
PROVIDERS: PCP Family Medicine; Referring Provider Orthopaedic Surgery; Visit Provider Orthopaedic Surgery
DX: S32.020A Wedge compression fracture of second lumbar vertebra, initial encounter for closed fracture (principal)
CPT/HCPCS: 72148

== ENCOUNTER → 2023-04-07 | Outpatient (CLI) | payer OTHER, SELFPAY ==
[2023-04-07 16:30] LABS: Absolute Lymphocyte Count 3.39 X10^3/uL (0.83-4.51); Basophil# 0.06 X10^3/uL; Basophil% 0.6 % (0-1); Eosinophil# 0.35 X10^3/uL; Eosinophils% 3.6 % (0-5); Hematocrit 45.8 % (37-47); Hemoglobin 15.5 g/dL (12.0-15.0); Lymphocyte # 3.39 X10^3/ul (0.83-4.51); Lymphocyte % 35.2 % (19-41); Mean Corp Hgb Conc 33.8 g/dL (32-36); Mean Corpuscular Hgb 31.1 pg (27.0-32.0); Mean Corpuscular Volume 91.8 fL (81-99); Mean Platelet Vol. 10.6 fl (6.2-12.0); Monocyte# 0.82 X10^3/uL; Monocyte% 8.5 % (0-10); NRBC Flagged by Analyzer 0 % (0-5); Neutrophil # 4.97 X10^3/uL (2.7-7.7); Neutrophil % 51.8 % (47-70); Platelet Count 393 K/mm3 (150-450); RBC Distribution Width CV 13.4 % (11.6-14.6); Red Blood Count 4.99 M/mm3 (4.2-5.4); White Blood Count 9.6 K/mm3 (4.4-11.0)
[2023-04-07 17:04] LABS: Hemoglobin A1c 7.6 % (3.8-5.6)
[2023-04-07 17:05] LABS: ALB/GLOB Ratio 1.1 RATIO (0.9-2.4); AST(SGOT) 24 U/L (15-37); Alanine Aminotransfer ALT/SGPT 27 U/L (13-56); Albumin, Serum 3.6 g/dL (3.2-5.0); Alkaline Phosphatase 115 U/L (45-117); Anion Gap 7 (5-15); BUN 9 mg/dL (7-18); BUN/Creat Ratio 10.7 RATIO (10-20); Calcium,Total 9.1 mg/dL (8.5-10.1); Chloride 105 mmol/L (98-107); Creatinine, Serum 0.84 mg/dL (0.55-1.02); EST Glomerular Filtration Rate 74 mL/min (>60); Est Glom Filt Rate - Afr Amer 89 mL/min (>60); Globulin 3.3 g/dL (2.2-4.2); Glucose 197 mg/dL (74-106); Potassium 3.9 mmol/L (3.5-5.1); Protein, Total 6.9 g/dL (6.4-8.2); Sodium Level 139 mmol/L (136-145)
== END | disposition home or self-care (01) ==
PROVIDERS: PCP Family Medicine; Referring Provider Family Medicine; Visit Provider Family Medicine
DX: Z51.81 Encounter for therapeutic drug level monitoring (principal); E10.49 Type 1 diabetes mellitus with other diabetic neurological complication
CPT/HCPCS: 36415; 80053; 83036; 85025

== ENCOUNTER 2023-04-22 19:02 | Emergency (ER) | payer OTHER, SELFPAY ==
[2023-04-22 19:03] VITALS: BP 167/65; PULSE 103; RESP 18; TEMP 36.8; O2SAT 96; BMI 29.0
--- NOTE | 2023-04-22 20:25 | EKG12_ITS ---
Test Reason : DYSRHYTHMIA Blood Pressure : / mmHG Vent. Rate : 088 BPM Atrial Rate : 088 BPM P-R Int : 158 ms QRS Dur : 094 ms QT Int : 398 ms P-R-T Axes : 065 -41 060 degrees QTc Int : 481 ms Normal sinus rhythm Left axis deviation Prolonged QT Abnormal ECG Confirmed by MISSY HERNANDEZ, TOM ([id number]), editor magazine DESTIN FRAUSTO ([id number]) on 04/24/2023 8:57:42 AM Referred By: PL Confirmed By:TOM LOUIS MD
--- NOTE | 2023-04-22 20:26 | ED.VIS.DYS ---
HPI History of Present Illness Chief Complaint: Shortness of Breath Informant: patient and spouse/S.O. Narrative Narrative: Patient presents after episode of dyspnea. Patient states she started with COVID symptoms about a week ago. She tested positive on Friday. She has had sore throat congestion some cough nausea but no vomiting or diarrhea. She has had malaise and myalgias. This evening she was sitting down. She started to get very dyspneic. She states it was hard for her to talk and breathe. She used her 's albuterol which she has never done before and that seemed to help. She is feeling much better now. She did not have pain with it. No hemoptysis. No leg pain or swelling. The patient did have a DVT in the left leg many years ago. No other known risk factor for blood clots other than that. [facility] Medical History Arthritis Back pain Blackout Chronic cough Diabetes mellitus type 1 DVT (deep venous thrombosis) Essential (primary) hypertension Excessive bleeding Fibromyalgia Gastric reflux GERD (gastroesophageal reflux disease) H/O headache H/O urinary tract infection h/o vision problems History of echocardiogram History of GI bleed History of IBS History of steroid therapy History of stress test Hoarseness Hyperlipidemia Hypertension IBS (irritable bowel syndrome) Low calcium levels Maxillary sinusitis Migraine headache Neuropathy Non-smoker PCOS (polycystic ovarian syndrome) PONV (postoperative nausea and vomiting) Rheumatoid arthritis Shortness of breath on exertion MOHINDER (stress urinary incontinence, female) Trigger finger release Wears glasses Home Medications docusate sodium 100 mg capsule 250 mg PO BID stool softener 11/11/16 [History Last Taken 05/02/18 22:00] Fiber 1 cap PO BID BMs 05/03/18 [History Last Taken Unknown] Insulin Pump Cartridge 1 unit SQ CONT diabetes 05/03/18 [History Last Taken Unknown] omeprazole 20 mg capsule,delayed release 40 mg PO DAILY PRN reflux 07/18/20 [History Last Taken 04/02/22] amitriptyline 50 mg tablet 50 mg PO QHS migraines 03/29/22 [History Last Taken Unknown] folic acid 1 mg tablet 1 mg PO TH supplement 03/29/22 [History Last Taken Unknown] methotrexate (PF) 7.5 mg/0.3 mL subcutaneous syringe 6 mg subcut TH RA 03/29/22 [History Last Taken Unknown] pravastatin 80 mg tablet 80 mg PO QHS 03/29/22 [History Last Taken Unknown] sennosides 8.6 mg tablet (Senokot) 8.6 mg PO DAILY 03/29/22 [History Last Taken Unknown] calcitonin (salmon) 200 unit/actuation nasal spray 1 spray intranasal DAILY 03/11/23 [History Last Taken Unknown] lisinopril 40 mg tablet 40 mg PO DAILY 03/11/23 [History Last Taken Unknown] dexamethasone 6 mg tablet 6 mg PO DAILY #7 tabs 04/23/23 [Rx Last Taken Unknown] Allergy/AdvReac Type Severity Reaction Status Date / Time metoclopramide HCl Allergy Anaphylaxis Verified 04/22/23 19:05 [From Reglan] Family History Other Arthritis Asthma Diabetes Hypertension Surgical History H/O shoulder surgery H/O: hysterectomy History of appendectomy History of arthroscopy of right shoulder History of colonoscopy History of esophagogastroduodenoscopy (EGD) History of hysterectomy History of tonsillectomy Hx of fusion of cervical spine S/P trigger finger release Social History Smoking Status: Never smoker alcohol intake: never ROS ROS ED ROS Narrative A complete review of systems was performed and is negative except as documented in the history of present illness. Some specific details below. Constitutional: No recent fevers but she has had some mild chills. EYE: No discharge, visual complaints, or pain. ENT: No difficulty swallowing. Mild sore throat and mild congestion. CV: No real chest pain with this episode. No palpitations. Respiratory: See history of present illness. She is feeling much better now GI: No abdominal pain. No nausea vomiting diarrhea. No blood in stool. : No frequency dysuria or hematuria. Musculoskeletal: No recent trauma. No pains. No swelling. Skin: No rash. Nondiaphoretic. Neuro: No weakness or numbness. Endocrine: No polyuria or polydipsia. EXAM Physical Exam Narrative Exam Narrative: CONSTITUTIONAL: Patient is nontoxic in appearance. The patient looks comfortable. Work of breathing looks normal. HEENT: No notable trauma. Mucous membranes moist. No sinus tenderness. No exudate. No change in voice. EYES: No conjunctival injection. No proptosis. NECK:No JVD. No stridor. CARDIOVASCULAR: Regular rate at about 90. Regular rhythm. No notable murmur. No JVD. RESPIRATORY: No respiratory distress. Breathing is unlabored. No significant wheezes but she has some mild prolonged expiration. Few coarse breath sounds toward the base a little bit more on the left. However, they tend to clear with deep breaths. No pain with a deep breath. GASTROINTESTINAL: Not distended. Bowel sounds are normal. No tenderness. No guarding. No rebound. No palpable mass. No bruit is heard. GENITOURINARY: No tenderness over the bladder. No CVA tenderness. MUSCULOSKELETAL: Atraumatic. No peripheral edema. No cord. No tenderness along the deep venous system. No asymmetry. No distended veins. Even though she reportedly had DVT in the left leg there is no clinical indication of that at this time. NEUROLOGICAL: Patient is alert and appropriate. No focal deficit noted. SKIN: No noted rashes. No diaphoresis. PSYCHIATRIC: Patient is calm. Mood is appropriate. Const Vital Signs: 04/22/23 19:03 04/22/23 20:41 04/22/23 20:42 Temperature 98.3 F 98.2 F Temperature Source Temporal Temporal Pulse Rate 103 H 93 Respiratory Rate 18 15 Respiratory Effort Normal Non-Labored Respiratory Pattern Blood Pressure 167/65 H 150/72 H Blood Pressure Mean 99 98 Pulse Ox 96 95 Oxygen Delivery Method Room Air Room Air Room Air 04/22/23 20:30 04/22/23 21:22 04/22/23 23:02 Temperature 98.2 F Temperature Source Temporal Pulse Rate 89 93 90 Respiratory Rate 18 20 H 16 Respiratory Effort Respiratory Pattern Normal Blood Pressure 136/66 H 130/89 H Blood Pressure Mean 89 102 Pulse Ox 93 91 Oxygen Delivery Method Room Air Room Air MDM MDM MDM Narrative Medical decision making narrative: Patient CBC showed some leukopenia and consistent with COVID positive. Electrolytes show no marked abnormalities. Glucose was just slightly up. Patient does have an insulin pump and a CGM that modifies her need for insulin based on her levels. She has had diabetes for about 51 years and controls it quite well. Troponin is negative. D-dimer was elevated. With her history of DVT and COVID-positive with dyspnea and a positive D-dimer we did do a CTA. My independent interpretation of the CTA did not show any definitive pulmonary embolus. There were multiple areas of increased density consistent with COVID. I saw no pneumothorax. No cardiomegaly or pericardial effusion. Final reading more findings compatible with COVID-pneumonia but no demonstrated pulmonary embolism or arterial dissection. Patient's single AP chest x-ray shows a few markings toward the left base. Final reading was left lower lobe pneumonia. Patient sats were occasionally at 90 or 91% sitting in bed. But when she sat up they got better. We walked her and she actually did well. Her lowest saturation was 94%. She felt well. Now sitting back in bed she is 96%. I think the activity helped. My concern is that this patient describes what she felt is like a spasm or tightening in her throat. It was improved with her 's albuterol. But I am concerned that this may be some bronchospasm. I think with his bronchospasm, initially borderline oxygen she may benefit from Decadron. I will write for her own albuterol with spacer also. We discussed expected course of the disease timing and reasons to return. If she can get an O2 sat to keep that measured that would be helpful. Lab Data Attestation: I reviewed the patient's lab results. Labs: Laboratory Results - last 24 hr 04/22/23 04/22/23 04/22/23 20:43 20:43 20:43 WBC 4.0 L RBC 4.82 Hgb 14.7 Hct 44.0 MCV 91.3 MCH 30.5 MCHC 33.4 RDW Std Deviation 44.5 H RDW Coeff of Tobias 13.3 Plt Count 289 MPV 9.6 Immature Gran % (Auto) 0.700 Neut % (Auto) 44.7 L Lymph % (Auto) 39.0 [place] % (Auto) 14.1 H Eos % (Auto) 1.0 Baso % (Auto) 0.5 Absolute Neuts (auto) 1.8 L Absolute Lymphs (auto) 1.57 Nucleated RBC % 0 D-Dimer Quant (PE/DVT) 1.39 H* Sodium 141 Potassium 3.8 Chloride 108 H Carbon Dioxide 26.0 Anion Gap 7 BUN 6 L Creatinine 0.75 Estim Creat Clear Calc 57.30 Est GFR (MDRD) Af Amer 101 Est GFR (MDRD) Non-Af 84 BUN/Creatinine Ratio 8.0 L Glucose 169 H Calcium 8.6 Troponin I High Sens 5 Radiography Diagnostic Testing: Clinical Impression(s) from Imaging Studies Chest X-Ray 04/22/23 20:49 IMPRESSION: Left lower lobe infiltrate. Electronically Signed: Lance Hearn MD at 21:08 EDT , Chest CTA 04/22/23 21:27 IMPRESSION: Findings compatible with Covid pneumonia. No demonstrated pulmonary embolism or arterial dissection. Electronically Signed: Kumar Byrnes MD at 22:13 EDT , EKG Initial EKG: Comments: My independent interpretation the patient's EKG done for dyspnea shows a normal sinus rhythm with a rate of 88. No ectopy. No acute ST elevation or depression. Mild left axis deviation. NJ interval, QRS duration are normal. QTc is mildly long at 481 ms. This is overall very similar to prior EKG of 01 Apr 2022. Discharge Plan Triage Chief Complaint: Shortness of Breath ED Provider: Stanton Carpenter Dx/Rx/DC Orders Clinical Impression: Pneumonia due to 2019 novel coronavirus, Acute bronchospasm, Leukopenia Instructions: Coronavirus Disease 2019 (COVID-19): Caring for Yourself or Others Prescriptions: New dexamethasone 6 mg tablet 6 mg PO DAILY Qty: 7 0RF No Action calcitonin (salmon) 200 unit/actuation spray,non-aerosol 1 spray intranasal DAILY Label Comments: USE 1 SPRAY INTRANASALLYRDAILY IN NOSTRIL ALTERNATING NOSTRILS,DAILY lisinopril 40 mg tablet 40 mg PO DAILY Label Comments: Take 1 by mouth onceNdaily docusate sodium 100 MG capsule 250 mg PO BID Fiber 1 cap PO BID Insulin Pump Cartridge 1 unit SQ CONT omeprazole 20 MG capsule 40 mg PO DAILY PRN (Reason: reflux) sennosides [Senokot] 8.6 mg Tablet 8.6 mg PO DAILY pravastatin 80 mg Tablet 80 mg PO QHS folic acid 1 mg Tablet 1 mg PO TH methotrexate (PF) 7.5 mg/0.3 mL Syringe 6 mg SUBCUT TH amitriptyline 50 mg Tablet 50 mg PO QHS Primary Care Provider: Santino Ruelas Referrals: Santino Ruelas DO [Primary Care Provider] - Disposition Disposition: Home, Self Care
[2023-04-22 20:30] VITALS: PULSE 89; RESP 18
[2023-04-22] MEDS: Ipratropium/Albuterol Sulfate 3 ML AMPUL.NEB INHALATION (20:30)
[2023-04-22 20:41] VITALS: BP 150/72; PULSE 93; RESP 15; TEMP 36.8; O2SAT 95
[2023-04-22 20:42] VITALS: O2SAT 96
--- NOTE | 2023-04-22 20:49 | RAD_ITS ---
EXAM: XR CHEST, 1 VIEW CLINICAL INDICATION: SOB, Covid TECHNIQUE: Frontal view of the chest. COMPARISON: Rib series dated July 21, 2019 FINDINGS: LUNGS AND PLEURAL SPACES: Left lower lobe infiltrate. No pneumothorax. No effusion. HEART: Unremarkable. Cardiac silhouette not enlarged. MEDIASTINUM: Central airways and mediastinal contour are unremarkable. BONES/JOINTS: Scoliosis of the thoracic spine. Cervical spine fusion hardware. SOFT TISSUES: Unremarkable. RAD/Chest 1 View (Portable) IMPRESSION: Left lower lobe infiltrate. Electronically Signed: Lance Hearn MD at 21:08 EDT ,
[2023-04-22 20:56] LABS: Absolute Lymphocyte Count 1.57 X10^3/uL (0.83-4.51); Absolute Neutrophil Count 1.8 X10^3/uL (2.0-7.7); Basophil# 0.02 X10^3/uL; Basophil% 0.5 % (0-1); Eosinophil# 0.04 X10^3/uL; Hemoglobin 14.7 g/dL (12.0-15.0); Lymphocyte # 1.57 X10^3/ul (0.83-4.51); Mean Corp Hgb Conc 33.4 g/dL (32-36); Mean Corpuscular Hgb 30.5 pg (27.0-32.0); Mean Corpuscular Volume 91.3 fL (81-99); Mean Platelet Vol. 9.6 fl (6.2-12.0); Monocyte# 0.57 X10^3/uL; Monocyte% 14.1 % (0-10); NRBC Flagged by Analyzer 0 % (0-5); Neutrophil % 44.7 % (47-70); Platelet Count 289 K/mm3 (150-450); RBC Distribution Width CV 13.3 % (11.6-14.6); RBC Distribution Width SD 44.5 fl (35.1-43.9); Red Blood Count 4.82 M/mm3 (4.2-5.4)
[2023-04-22 21:14] LABS: Anion Gap 7 (5-15); BUN 6 mg/dL (7-18); Calcium,Total 8.6 mg/dL (8.5-10.1); Chloride 108 mmol/L (98-107); Creatinine, Serum 0.75 mg/dL (0.55-1.02); EST Glomerular Filtration Rate 84 mL/min (>60); Est Glom Filt Rate - Afr Amer 101 mL/min (>60); Glucose 169 mg/dL (74-106); Potassium 3.8 mmol/L (3.5-5.1); Sodium Level 141 mmol/L (136-145); Troponin-I HS 5 pg/mL (3.0-54.0)
[2023-04-22 21:22] VITALS: BP 136/66; PULSE 93; RESP 20; TEMP 36.8; O2SAT 93
[2023-04-22 21:24] LABS: D-Dimer Quantitative (DVT/PE) 1.39 FEU/ug/m (0.27-0.49)
--- NOTE | 2023-04-22 21:27 | CT_ITS ---
STUDY: CTA CHEST REASON FOR EXAM: Female, 58 years old. PE, shortness of breath, Covid RADIATION DOSAGE (If Supplied By Facility): CTDIvol = ( 10.04 ) mGy, DLP = ( 464.29 ) mGycm TECHNIQUE: The examination was performed with the intravenous administration of IV 100mL Isovue-370. Post-processing of the angiographic images was performed, with multiplanar reformation and 3D reconstruction. Individualized dose optimization techniques were used for this CT. COMPARISON: Concurrent chest x-ray FINDINGS: Normal enhancement of the main pulmonary artery and right and left pulmonary arteries. Normal enhancement of the bilateral peripheral pulmonary arteries. There is no demonstrated pulmonary embolism. Normal thoracic aorta and visualized great vessels. There is no demonstrated aortic dissection. Normal heart and pericardium. Normal mediastinum. Normal hilar regions. Normal visualized trachea and bronchi. The lungs are well expanded. Groundglass densities scattered throughout both lungs. Left lung base atelectasis/scarring. Normal pleura. Normal chest wall structures. There are degenerative changes of thoracic spine. No acute abnormal finding in the visualized upper abdomen. CT/CTA Chest W/WO Contrast IMPRESSION: Findings compatible with Covid pneumonia. No demonstrated pulmonary embolism or arterial dissection. Electronically Signed: Kumar Byrnes MD at 22:13 EDT ,
[2023-04-22 23:02] VITALS: BP 130/89; PULSE 90; RESP 16; O2SAT 91
[2023-04-23 00:14] VITALS: O2SAT 93
[2023-04-23] MEDS: Albuterol Sulfate 8 gm Inhaler (60 puffs) 2 PUFF INHALATION (00:38)
[2023-04-23] MEDS: dexAMETHasone 4 MG Tablet 6 MG PO (00:38)
== END 2023-04-23 01:05 | disposition home or self-care (01) ==
PROVIDERS: Emergency Provider Emergency Medicine; PCP Family Medicine; Visit Provider Emergency Medicine
DX: U07.1 COVID-19 (principal); M06.9 Rheumatoid arthritis, unspecified; E10.40 Type 1 diabetes mellitus with diabetic neuropathy, unspecified; J12.82 Pneumonia due to coronavirus disease 2019; D72.819 Decreased white blood cell count, unspecified; I10 Essential (primary) hypertension; E78.5 Hyperlipidemia, unspecified; J98.01 Acute bronchospasm; Z96.41 Presence of insulin pump (external) (internal); Z86.718 Personal history of other venous thrombosis and embolism; K21.9 Gastro-esophageal reflux disease without esophagitis; G43.909 Migraine, unspecified, not intractable, without status migrainosus; Z79.899 Other long term (current) drug therapy
CPT/HCPCS: 71045; 71275; 80048; 84484; 85025; 85379; 93005; 94640; 99283; Q9967; A4216

== ENCOUNTER 2023-05-05 12:59 | Outpatient (CLI) | payer OTHER, SELFPAY ==
[2023-05-05 13:06] VITALS: BP 115/68; PULSE 101; RESP 16; TEMP 36.3; O2SAT 96; BMI 28.3
[2023-05-05] MEDS: DENOSUMAB 60 MG/ML SC (13:11)
== END 2023-05-05 13:00 | disposition home or self-care (01) ==
LOC: MEDOUTP 12:59
PROVIDERS: PCP Family Medicine; Referring Provider Family Medicine; Visit Provider Family Medicine
DX: M81.0 Age-related osteoporosis without current pathological fracture (principal)
CPT/HCPCS: 96372; J0897

== ENCOUNTER → 2023-07-01 | Outpatient (CLI) | payer OTHER, SELFPAY ==
[2023-07-01 15:54] LABS: Absolute Lymphocyte Count 2.86 X10^3/uL (0.83-4.51); Basophil# 0.04 X10^3/uL; Basophil% 0.5 % (0-1); Eosinophil# 0.17 X10^3/uL; Eosinophils% 2.2 % (0-5); Hematocrit 45.7 % (37-47); Hemoglobin 15.3 g/dL (12.0-15.0); Lymphocyte # 2.86 X10^3/ul (0.83-4.51); Lymphocyte % 36.5 % (19-41); Mean Corp Hgb Conc 33.5 g/dL (32-36); Mean Corpuscular Hgb 30.8 pg (27.0-32.0); Mean Corpuscular Volume 92.1 fL (81-99); Mean Platelet Vol. 10.2 fl (6.2-12.0); Monocyte# 0.74 X10^3/uL; Monocyte% 9.4 % (0-10); NRBC Flagged by Analyzer 0 % (0-5); Platelet Count 346 K/mm3 (150-450); RBC Distribution Width CV 13.4 % (11.6-14.6); RBC Distribution Width SD 45.2 fl (35.1-43.9); Red Blood Count 4.96 M/mm3 (4.2-5.4); White Blood Count 7.8 K/mm3 (4.4-11.0)
[2023-07-01 16:25] LABS: Hemoglobin A1c 7.5 % (3.8-5.6)
[2023-07-01 16:40] LABS: ALB/GLOB Ratio 1.1 RATIO (0.9-2.4); AST(SGOT) 23 U/L (15-37); Alanine Aminotransfer ALT/SGPT 34 U/L (13-56); Albumin, Serum 3.5 g/dL (3.2-5.0); Alkaline Phosphatase 87 U/L (45-117); Anion Gap 5 (5-15); BUN 8 mg/dL (7-18); Calcium,Total 8.5 mg/dL (8.5-10.1); Chloride 109 mmol/L (98-107); Cholesterol 210 mg/dL (200); Creatinine, Serum 0.72 mg/dL (0.55-1.02); EST Glomerular Filtration Rate 87 mL/min (>60); Est Glom Filt Rate - Afr Amer 105 mL/min (>60); Globulin 3.3 g/dL (2.2-4.2); Glucose 121 mg/dL (74-106); High Density Lipoprotein 59 mg/dL; Potassium 3.9 mmol/L (3.5-5.1); Protein, Total 6.8 g/dL (6.4-8.2); Sodium Level 138 mmol/L (136-145); Triglycerides 186 mg/dL; Very Low Density Lipoprotein 37 mg/dL (5-40)
== END | disposition home or self-care (01) ==
LOC: LAB 14:52
PROVIDERS: PCP Family Medicine; Referring Provider Family Medicine; Visit Provider Family Medicine
DX: Z51.81 Encounter for therapeutic drug level monitoring (principal); E10.49 Type 1 diabetes mellitus with other diabetic neurological complication
CPT/HCPCS: 36415; 80053; 80061; 83036; 85025

== ENCOUNTER → 2023-10-10 | Outpatient (CLI) | payer OTHER, SELFPAY ==
[2023-10-10 17:07] LABS: Absolute Lymphocyte Count 3.02 X10^3/uL (0.83-4.51); Absolute Neutrophil Count 4.7 X10^3/uL (2.0-7.7); Basophil# 0.05 X10^3/uL; Basophil% 0.6 % (0-1); Eosinophils% 3.4 % (0-5); Hematocrit 47.8 % (37-47); Hemoglobin 15.6 g/dL (12.0-15.0); Lymphocyte # 3.02 X10^3/ul (0.83-4.51); Lymphocyte % 34.1 % (19-41); Mean Corp Hgb Conc 32.6 g/dL (32-36); Mean Corpuscular Hgb 30.5 pg (27.0-32.0); Mean Corpuscular Volume 93.4 fL (81-99); Mean Platelet Vol. 9.6 fl (6.2-12.0); NRBC Flagged by Analyzer 0 % (0-5); Neutrophil # 4.67 X10^3/uL (2.7-7.7); Neutrophil % 52.7 % (47-70); Platelet Count 378 K/mm3 (150-450); RBC Distribution Width CV 13.5 % (11.6-14.6); RBC Distribution Width SD 46.5 fl (35.1-43.9); Red Blood Count 5.12 M/mm3 (4.2-5.4); White Blood Count 8.9 K/mm3 (4.4-11.0)
[2023-10-10 17:31] LABS: ALB/GLOB Ratio 1.2 RATIO (0.9-2.4); AST(SGOT) 35 U/L (15-37); Alanine Aminotransfer ALT/SGPT 48 U/L (13-56); Albumin, Serum 3.8 g/dL (3.2-5.0); Alkaline Phosphatase 70 U/L (45-117); Anion Gap 4 (5-15); BUN 10 mg/dL (7-18); BUN/Creat Ratio 11.1 RATIO (10-20); Chloride 107 mmol/L (98-107); EST Glomerular Filtration Rate 68 mL/min (>60); Est Glom Filt Rate - Afr Amer 82 mL/min (>60); Globulin 3.3 g/dL (2.2-4.2); Glucose 153 mg/dL (74-106); Potassium 3.9 mmol/L (3.5-5.1); Protein, Total 7.1 g/dL (6.4-8.2); Sodium Level 138 mmol/L (136-145)
[2023-10-10 17:47] LABS: Hemoglobin A1c 6.5 % (3.8-5.6)
== END | disposition home or self-care (01) ==
LOC: LAB 16:40
PROVIDERS: PCP Family Medicine; Visit Provider Family Medicine
DX: Z51.81 Encounter for therapeutic drug level monitoring (principal); E10.49 Type 1 diabetes mellitus with other diabetic neurological complication
CPT/HCPCS: 36415; 80053; 83036; 85025

== ENCOUNTER 2023-11-10 12:35 | Outpatient (CLI) | payer OTHER, SELFPAY ==
[2023-11-10 12:57] VITALS: BP 117/64; PULSE 86; RESP 16; TEMP 35.9; O2SAT 96
[2023-11-10] MEDS: DENOSUMAB 60 MG/ML SC (13:00)
== END 2023-11-10 12:36 | disposition home or self-care (01) ==
LOC: MEDOUTP 12:35
PROVIDERS: PCP Family Medicine; Referring Provider Family Medicine; Visit Provider Family Medicine
DX: M81.0 Age-related osteoporosis without current pathological fracture (principal)
CPT/HCPCS: 96372; J0897

== ENCOUNTER → 2024-01-01 | Outpatient (CLI) | payer OTHER, SELFPAY ==
[2024-01-01 16:27] LABS: Color, Urine Yellow (Yellow); Glucose, Dipstick Normal (Normal); Ketone-Dipstick 5 mg/dl (Negative); Leukocyte Esterase-Dipstick 25 /ul (Negative); Nitrite-Dipstick Negative (Negative); Occult Blood-Urine 10 /ul (Negative); Protein-Dipstick Negative (Negative); Specific Gravity, Urine 1.025 (1.002-1.030); Urine Bilirubin Dipstick Negative (Negative); Urine Clarity Clear (Clear); Urine Urobilinogen 1 mg/dl (Normal)
[2024-01-01 16:29] LABS: Absolute Neutrophil Count 3.9 X10^3/uL (2.0-7.7); Basophil# 0.06 X10^3/uL; Basophil% 0.8 % (0-1); Eosinophil# 0.28 X10^3/uL; Eosinophils% 3.6 % (0-5); Hematocrit 47.2 % (37-47); Hemoglobin 15.4 g/dL (12.0-15.0); Lymphocyte % 36.1 % (19-41); Mean Corp Hgb Conc 32.6 g/dL (32-36); Mean Corpuscular Hgb 30.7 pg (27.0-32.0); Mean Platelet Vol. 10.2 fl (6.2-12.0); Monocyte# 0.67 X10^3/uL; Monocyte% 8.6 % (0-10); NRBC Flagged by Analyzer 0 % (0-5); Neutrophil # 3.91 X10^3/uL (2.7-7.7); Neutrophil % 50.5 % (47-70); Platelet Count 377 K/mm3 (150-450); RBC Distribution Width CV 13.3 % (11.6-14.6); RBC Distribution Width SD 46.1 fl (35.1-43.9); Red Blood Count 5.02 M/mm3 (4.2-5.4); White Blood Count 7.8 K/mm3 (4.4-11.0)
[2024-01-01 16:40] LABS: Hemoglobin A1c 6.4 % (3.8-5.6)
[2024-01-01 17:04] LABS: ALB/GLOB Ratio 1.2 RATIO (0.9-2.4); AST(SGOT) 35 U/L (15-37); Alanine Aminotransfer ALT/SGPT 41 U/L (13-56); Albumin, Serum 3.7 g/dL (3.2-5.0); Alkaline Phosphatase 69 U/L (45-117); Anion Gap 5 (5-15); BUN 10 mg/dL (7-18); BUN/Creat Ratio 12.6 RATIO (10-20); Bilirubin, Direct 0.11 mg/dL (0.00-0.30); Calcium,Total 8.7 mg/dL (8.5-10.1); Chloride 110 mmol/L (98-107); Cholesterol 190 mg/dL (200); Creatinine, Serum 0.79 mg/dL (0.55-1.02); EST Glomerular Filtration Rate 78 mL/min (>60); Est Glom Filt Rate - Afr Amer 95 mL/min (>60); Globulin 3.2 g/dL (2.2-4.2); Glucose 160 mg/dL (74-106); High Density Lipoprotein 61 mg/dL; LDH 243 U/L (84-246); Phosphorus 2.3 mg/dL (2.5-4.9); Potassium 3.5 mmol/L (3.5-5.1); Protein, Total 6.9 g/dL (6.4-8.2); Sodium Level 140 mmol/L (136-145); Triglycerides 116 mg/dL; Uric Acid 4.5 mg/dL (2.6-6.0); Very Low Density Lipoprotein 23 mg/dL (5-40)
== END | disposition home or self-care (01) ==
LOC: LAB 14:07
PROVIDERS: PCP Family Medicine; Referring Provider Family Medicine; Visit Provider Family Medicine
DX: Z51.81 Encounter for therapeutic drug level monitoring (principal); E10.49 Type 1 diabetes mellitus with other diabetic neurological complication
CPT/HCPCS: 80053; 83036; 85025

== ENCOUNTER 2024-02-23 10:00 | Outpatient (RCR) | payer OTHER, SELFPAY ==
[2024-02-23 11:11] LABS: Absolute Lymphocyte Count 3.01 X10^3/uL (0.83-4.51); Absolute Neutrophil Count 4.3 X10^3/uL (2.0-7.7); Basophil# 0.07 X10^3/uL; Basophil% 0.8 % (0-1); Eosinophil# 0.29 X10^3/uL; Eosinophils% 3.4 % (0-5); Hematocrit 47.9 % (37-47); Hemoglobin 15.6 g/dL (12.0-15.0); Lymphocyte # 3.01 X10^3/ul (0.83-4.51); Lymphocyte % 35.8 % (19-41); Mean Corp Hgb Conc 32.6 g/dL (32-36); Mean Corpuscular Hgb 30.5 pg (27.0-32.0); Mean Corpuscular Volume 93.7 fL (81-99); Mean Platelet Vol. 9.9 fl (6.2-12.0); Monocyte# 0.73 X10^3/uL; Monocyte% 8.7 % (0-10); NRBC Flagged by Analyzer 0 % (0-5); Neutrophil # 4.28 X10^3/uL (2.7-7.7); Neutrophil % 50.9 % (47-70); Platelet Count 386 K/mm3 (150-450); RBC Distribution Width CV 13.7 % (11.6-14.6); RBC Distribution Width SD 46.5 fl (35.1-43.9); Red Blood Count 5.11 M/mm3 (4.2-5.4); White Blood Count 8.4 K/mm3 (4.4-11.0)
[2024-02-23 12:07] LABS: ALB/GLOB Ratio 1.1 RATIO (0.9-2.4); AST(SGOT) 23 U/L (15-37); Alanine Aminotransfer ALT/SGPT 32 U/L (13-56); Albumin, Serum 3.6 g/dL (3.2-5.0); Alkaline Phosphatase 61 U/L (45-117); Anion Gap 5 (5-15); BUN 13 mg/dL (7-18); BUN/Creat Ratio 14.7 RATIO (10-20); Calcium,Total 8.8 mg/dL (8.5-10.1); Chloride 106 mmol/L (98-107); Creatinine, Serum 0.88 mg/dL (0.55-1.02); EST Glomerular Filtration Rate 69 mL/min (>60); Est Glom Filt Rate - Afr Amer 84 mL/min (>60); Globulin 3.4 g/dL (2.2-4.2); Glucose 157 mg/dL (74-106); Potassium 4.3 mmol/L (3.5-5.1); Sodium Level 139 mmol/L (136-145)
== END 2024-02-28 18:00 | disposition home or self-care (01) ==
LOC: LAB 10:00
PROVIDERS: PCP Family Medicine; Referring Provider Family Medicine; Visit Provider Family Medicine
DX: Z51.81 Encounter for therapeutic drug level monitoring (principal)
CPT/HCPCS: 36415; 80053; 85025

== ENCOUNTER 2024-04-07 16:50 | Outpatient (RCR) | payer OTHER, SELFPAY ==
[2024-04-07 17:14] LABS: Absolute Neutrophil Count 5.4 X10^3/uL (2.0-7.7); Basophil# 0.08 X10^3/uL; Basophil% 0.8 % (0-1); Eosinophil# 0.34 X10^3/uL; Eosinophils% 3.4 % (0-5); Hemoglobin 15.5 g/dL (12.0-15.0); Lymphocyte % 32.2 % (19-41); Mean Corp Hgb Conc 34.4 g/dL (32-36); Mean Corpuscular Hgb 32.1 pg (27.0-32.0); Mean Corpuscular Volume 93.2 fL (81-99); Mean Platelet Vol. 9.7 fl (6.2-12.0); Monocyte# 0.94 X10^3/uL; Monocyte% 9.4 % (0-10); NRBC Flagged by Analyzer 0 % (0-5); Neutrophil # 5.35 X10^3/uL (2.7-7.7); Neutrophil % 53.8 % (47-70); Platelet Count 349 K/mm3 (150-450); RBC Distribution Width CV 14.2 % (11.6-14.6); RBC Distribution Width SD 48.6 fl (35.1-43.9); Red Blood Count 4.83 M/mm3 (4.2-5.4)
[2024-04-07 17:29] LABS: Hemoglobin A1c 6.4 % (3.8-5.6)
[2024-04-07 17:52] LABS: AST(SGOT) 27 U/L (15-37); Alanine Aminotransfer ALT/SGPT 41 U/L (13-56); Albumin, Serum 3.4 g/dL (3.2-5.0); Alkaline Phosphatase 71 U/L (45-117); Anion Gap 5 (5-15); BUN 10 mg/dL (7-18); BUN/Creat Ratio 13.7 RATIO (10-20); Calcium,Total 8.3 mg/dL (8.5-10.1); Chloride 107 mmol/L (98-107); Creatinine, Serum 0.73 mg/dL (0.55-1.02); EST Glomerular Filtration Rate 86 mL/min (>60); Est Glom Filt Rate - Afr Amer 104 mL/min (>60); Globulin 3.3 g/dL (2.2-4.2); Glucose 173 mg/dL (74-106); Protein, Total 6.7 g/dL (6.4-8.2); Sodium Level 138 mmol/L (136-145)
== END 2024-04-07 18:00 | disposition home or self-care (01) ==
LOC: LAB 16:50
PROVIDERS: PCP Family Medicine; Referring Provider Family Medicine; Visit Provider Family Medicine
DX: Z51.81 Encounter for therapeutic drug level monitoring (principal); E10.49 Type 1 diabetes mellitus with other diabetic neurological complication
CPT/HCPCS: 36415; 80053; 83036; 85025

== ENCOUNTER 2024-05-07 12:51 | Outpatient (CLI) | payer OTHER, SELFPAY ==
[2024-05-07] MEDS: DENOSUMAB 60 MG/ML SC (13:02)
[2024-05-07 13:04] VITALS: BP 114/67; PULSE 94; RESP 16; TEMP 36.1
== END 2024-05-07 23:59 | disposition home or self-care (01) ==
LOC: MEDOUTP 12:51
PROVIDERS: PCP Family Medicine; Referring Provider Family Medicine; Visit Provider Family Medicine
DX: M81.0 Age-related osteoporosis without current pathological fracture (principal)
CPT/HCPCS: 96372; J0897

== ENCOUNTER 2024-05-28 14:19 | Outpatient (RCR) | payer OTHER, SELFPAY ==
[2024-05-28 15:14] LABS: Absolute Lymphocyte Count 2.74 X10^3/uL (0.83-4.51); Absolute Neutrophil Count 4.2 X10^3/uL (2.0-7.7); Basophil# 0.04 X10^3/uL; Basophil% 0.5 % (0-1); Eosinophil# 0.23 X10^3/uL; Eosinophils% 2.9 % (0-5); Hematocrit 45.8 % (37-47); Hemoglobin 15.5 g/dL (12.0-15.0); Lymphocyte # 2.74 X10^3/ul (0.83-4.51); Lymphocyte % 34.3 % (19-41); Mean Corp Hgb Conc 33.8 g/dL (32-36); Mean Corpuscular Volume 94.4 fL (81-99); Mean Platelet Vol. 9.8 fl (6.2-12.0); Monocyte# 0.72 X10^3/uL; NRBC Flagged by Analyzer 0 % (0-5); Neutrophil # 4.23 X10^3/uL (2.7-7.7); Platelet Count 383 K/mm3 (150-450); RBC Distribution Width CV 14.1 % (11.6-14.6); RBC Distribution Width SD 48.7 fl (35.1-43.9); Red Blood Count 4.85 M/mm3 (4.2-5.4)
[2024-05-28 15:47] LABS: ALB/GLOB Ratio 1.1 RATIO (0.9-2.4); AST(SGOT) 23 U/L (15-37); Alanine Aminotransfer ALT/SGPT 35 U/L (13-56); Albumin, Serum 3.7 g/dL (3.2-5.0); Alkaline Phosphatase 71 U/L (45-117); Anion Gap 5 (5-15); BUN 8 mg/dL (7-18); BUN/Creat Ratio 10.5 RATIO (10-20); Calcium,Total 9.4 mg/dL (8.5-10.1); Chloride 108 mmol/L (98-107); Creatinine, Serum 0.76 mg/dL (0.55-1.02); EST Glomerular Filtration Rate 82 mL/min (>60); Est Glom Filt Rate - Afr Amer 99 mL/min (>60); Globulin 3.5 g/dL (2.2-4.2); Glucose 99 mg/dL (74-106); Potassium 3.9 mmol/L (3.5-5.1); Protein, Total 7.2 g/dL (6.4-8.2); Sodium Level 137 mmol/L (136-145)
== END 2024-05-28 18:00 | disposition home or self-care (01) ==
LOC: LAB 14:19
PROVIDERS: PCP Family Medicine; Referring Provider Family Medicine; Visit Provider Family Medicine
DX: Z51.81 Encounter for therapeutic drug level monitoring (principal)
CPT/HCPCS: 36415; 80053; 85025

== ENCOUNTER → 2024-07-06 | Outpatient (CLI) | payer OTHER, SELFPAY ==
[2024-07-06 16:18] LABS: Color, Urine Yellow (Yellow); Glucose, Dipstick Normal (Normal); Ketone-Dipstick Negative (Negative); Leukocyte Esterase-Dipstick 25 /ul (Negative); Nitrite-Dipstick Negative (Negative); Occult Blood-Urine Negative /ul (Negative); Protein-Dipstick Negative (Negative); Urine Bilirubin Dipstick Negative (Negative); Urine Clarity Clear (Clear); Urine Urobilinogen Normal (Normal); Urine pH 6.5 (5.0 - 8.0)
== END | disposition home or self-care (01) ==
LOC: LABSPEC 15:58
PROVIDERS: PCP Family Medicine; Referring Provider Family Medicine; Visit Provider Family Medicine
DX: R30.0 Dysuria (principal)
CPT/HCPCS: 81002; 87086

== ENCOUNTER 2024-09-28 12:14 | Outpatient (RCR) | payer OTHER, SELFPAY ==
[2024-09-28 12:43] LABS: Absolute Lymphocyte Count 2.59 X10^3/uL (0.83-4.51); Absolute Neutrophil Count 4.6 X10^3/uL (2.0-7.7); Basophil# 0.07 X10^3/uL; Basophil% 0.8 % (0-1); Eosinophil# 0.24 X10^3/uL; Eosinophils% 2.9 % (0-5); Hematocrit 48.3 % (37-47); Hemoglobin 15.9 g/dL (12.0-15.0); Lymphocyte # 2.59 X10^3/ul (0.83-4.51); Lymphocyte % 31.3 % (19-41); Mean Corp Hgb Conc 32.9 g/dL (32-36); Mean Corpuscular Hgb 31.2 pg (27.0-32.0); Mean Corpuscular Volume 94.7 fL (81-99); Mean Platelet Vol. 9.3 fl (6.2-12.0); Monocyte# 0.76 X10^3/uL; Monocyte% 9.2 % (0-10); NRBC Flagged by Analyzer 0 % (0-5); Neutrophil # 4.58 X10^3/uL (2.7-7.7); Neutrophil % 55.4 % (47-70); Platelet Count 375 K/mm3 (150-450); RBC Distribution Width CV 14.1 % (11.6-14.6); RBC Distribution Width SD 48.7 fl (35.1-43.9); White Blood Count 8.3 K/mm3 (4.4-11.0)
[2024-09-28 13:13] LABS: ALB/GLOB Ratio 1.1 RATIO (0.9-2.4); AST(SGOT) 30 U/L (15-37); Alanine Aminotransfer ALT/SGPT 40 U/L (13-56); Albumin, Serum 3.6 g/dL (3.2-5.0); Alkaline Phosphatase 71 U/L (45-117); Anion Gap 3 (5-15); BUN 8 mg/dL (7-18); BUN/Creat Ratio 10.3 RATIO (10-20); Calcium,Total 9.3 mg/dL (8.5-10.1); Chloride 109 mmol/L (98-107); Creatinine, Serum 0.78 mg/dL (0.55-1.02); EST Glomerular Filtration Rate 80 mL/min (>60); Est Glom Filt Rate - Afr Amer 96 mL/min (>60); Globulin 3.3 g/dL (2.2-4.2); Glucose 110 mg/dL (74-106); Potassium 4.4 mmol/L (3.5-5.1); Protein, Total 6.9 g/dL (6.4-8.2); Sodium Level 140 mmol/L (136-145)
[2024-09-28 13:19] LABS: Hemoglobin A1c 6.8 % (3.8-5.6)
== END 2024-09-28 18:00 | disposition home or self-care (01) ==
LOC: LAB 12:14
PROVIDERS: PCP Family Medicine; Referring Provider Family Medicine; Visit Provider Family Medicine
DX: Z51.81 Encounter for therapeutic drug level monitoring (principal); E10.49 Type 1 diabetes mellitus with other diabetic neurological complication
CPT/HCPCS: 36415; 80053; 83036; 85025

== ENCOUNTER 2024-11-12 14:29 | Outpatient (CLI) | payer OTHER, SELFPAY ==
[2024-11-12 14:32] VITALS: BP 123/64; PULSE 93; RESP 16; TEMP 35.7; O2SAT 97; BMI 28.7
[2024-11-12] MEDS: DENOSUMAB 60 MG/ML SC (14:38)
== END 2024-11-12 23:59 | disposition home or self-care (01) ==
LOC: MEDOUTP 14:29
PROVIDERS: PCP Family Medicine; Referring Provider Family Medicine; Visit Provider Family Medicine
DX: M81.0 Age-related osteoporosis without current pathological fracture (principal)
CPT/HCPCS: 96372; J0897

== ENCOUNTER → 2024-12-18 | Outpatient (CLI) | payer OTHER, SELFPAY ==
[2024-12-18 11:01] LABS: Absolute Lymphocyte Count 2.45 X10^3/uL (0.83-4.51); Absolute Neutrophil Count 4.9 X10^3/uL (2.0-7.7); Basophil# 0.04 X10^3/uL; Basophil% 0.5 % (0-1); Eosinophil# 0.15 X10^3/uL; Eosinophils% 1.8 % (0-5); Hematocrit 46.8 % (37-47); Hemoglobin 15.7 g/dL (12.0-15.0); Lymphocyte # 2.45 X10^3/ul (0.83-4.51); Lymphocyte % 29.7 % (19-41); Mean Corp Hgb Conc 33.5 g/dL (32-36); Mean Corpuscular Hgb 31.6 pg (27.0-32.0); Mean Corpuscular Volume 94.2 fL (81-99); Mean Platelet Vol. 9.4 fl (6.2-12.0); Monocyte# 0.71 X10^3/uL; Monocyte% 8.6 % (0-10); NRBC Flagged by Analyzer 0 % (0-5); Neutrophil # 4.88 X10^3/uL (2.7-7.7); Neutrophil % 59.2 % (47-70); Platelet Count 380 K/mm3 (150-450); RBC Distribution Width CV 13.8 % (11.6-14.6); RBC Distribution Width SD 47.4 fl (35.1-43.9); Red Blood Count 4.97 M/mm3 (4.2-5.4); White Blood Count 8.3 K/mm3 (4.4-11.0)
[2024-12-18 11:23] LABS: ALB/GLOB Ratio 1.1 RATIO (0.9-2.4); AST(SGOT) 30 U/L (15-37); Alanine Aminotransfer ALT/SGPT 38 U/L (13-56); Albumin, Serum 3.8 g/dL (3.2-5.0); Alkaline Phosphatase 73 U/L (45-117); Anion Gap 5 (5-15); BUN 10 mg/dL (7-18); Calcium,Total 8.9 mg/dL (8.5-10.1); Chloride 109 mmol/L (98-107); Creatinine, Serum 0.91 mg/dL (0.55-1.02); EST Glomerular Filtration Rate 67 mL/min (>60); Est Glom Filt Rate - Afr Amer 81 mL/min (>60); Globulin 3.4 g/dL (2.2-4.2); Glucose 110 mg/dL (74-106); Potassium 4.3 mmol/L (3.5-5.1); Protein, Total 7.2 g/dL (6.4-8.2); Sodium Level 139 mmol/L (136-145)
[2024-12-18 11:29] LABS: Hemoglobin A1c 6.8 % (3.8-5.6)
== END | disposition home or self-care (01) ==
LOC: LAB 10:48
PROVIDERS: PCP Family Medicine; Referring Provider Family Medicine; Visit Provider Family Medicine
DX: E10.49 Type 1 diabetes mellitus with other diabetic neurological complication (principal); Z51.81 Encounter for therapeutic drug level monitoring
CPT/HCPCS: 36415; 80053; 83036; 85025

== ENCOUNTER → 2025-01-31 | Outpatient (CLI) | payer OTHER, SELFPAY ==
--- NOTE | 2025-01-31 18:05 | CT_ITS ---
PROCEDURE: ABDOMEN/PELVIS WITHOUT CONT REASON FOR EXAM: History of umbilical hernia. TECHNIQUE: Abdomen and pelvis CT without intravenous contrast. No oral contrast. COMPARISON: Comparison is made with prior study dated May 03, 2018.1 FINDINGS: Lung bases: Clear. Coronary artery calcification. Liver: Unremarkable. Gallbladder: Unremarkable. Spleen: Unremarkable. Pancreas: Unremarkable. Adrenals: Unremarkable. Kidneys: Unremarkable. Bladder: Unremarkable. Small umbilical hernia containing fat. The neck of the hernia measures 2.9 cm. Mild increased markings are seen within the herniated fat. Reproductive Organs: Prior hysterectomy. Adnexal regions are unremarkable. Bowel: Colonic diverticulosis without diverticulitis.. Small hiatal hernia. Appendix: Status post appendectomy. Lymph nodes: No suspicious lymph node enlargement. Vasculature: Major vascular structures are unremarkable. Peritoneum / Retroperitoneum: No ascites. No free air. Bones: Degenerative changes of the spine. CT/Abdomen/Pelvis without Cont IMPRESSION: Umbilical hernia containing fat as described. Increased markings are seen withi n the fat. The neck of the hernia measures 2.9 cm. One or more dose reduction techniques were used (e.g., Automated exposure contr ol, adjustment of the mA and/or kV according to patient size, use of iterative reconstruction technique). Reading Location: [facility]
== END | disposition home or self-care (01) ==
LOC: CT 18:18
PROVIDERS: PCP Family Medicine; Referring Provider Surgery; Visit Provider Surgery
DX: K42.9 Umbilical hernia without obstruction or gangrene (principal)
CPT/HCPCS: 74176

== ENCOUNTER → 2025-02-28 | Outpatient (CLI) | payer OTHER, SELFPAY ==
[2025-02-28 08:30] LABS: Mucous, Urine 0 SEEN /hpf (<or=2+)
[2025-02-28 10:43] LABS: Color, Urine Amber (Yellow); Glucose, Dipstick Normal (Normal); Ketone-Dipstick Negative (Negative); Leukocyte Esterase-Dipstick 500 /ul (Negative); Nitrite-Dipstick Positive (Negative); Occult Blood-Urine 250 /ul (Negative); Protein-Dipstick 100 mg/dl (Negative); Specific Gravity, Urine 1.005 (1.002-1.030); Urine Clarity Cloudy (Clear); Urine Urobilinogen 8 mg/dl (Normal)
[2025-02-28 10:48] LABS: Urine Bilirubin Dipstick 3 mg/dL (Negative)
[2025-02-28 11:18] LABS: White Blood Cells >100 SEEN /hpf (0-5)
[2025-02-28 11:20] LABS: Red Blood Cells-Urine 25-50 SEEN /hpf (0-5); Squamous Epithelial Cells - UA 0-5 SEEN /hpf (5-10)
[2025-02-28 11:21] LABS: Bacteria 2+ /hpf (None Seen); Transitional Epithelial - Ur 0-5 SEEN /hpf (0-5)
== END | disposition home or self-care (01) ==
LOC: LABSPEC 08:29
PROVIDERS: PCP Family Medicine; Visit Provider Nurse Practitioner Family
DX: R30.0 Dysuria (principal)
CPT/HCPCS: 81001; 87086; 87088

== ENCOUNTER 2025-03-30 05:53 | Day surgery (SDC) | payer OTHER, SELFPAY ==
--- NOTE | 2025-03-17 11:16 | EKG12_ITS ---
Test Reason : PRE OP Blood Pressure : */* mmHG Vent. Rate : 92 BPM Atrial Rate : 92 BPM P-R Int : 150 ms QRS Dur : 82 ms QT Int : 364 ms P-R-T Axes : 70 -65 68 degrees QTcB Int : 450 ms Normal sinus rhythm Possible Left atrial enlargement Left anterior fascicular block Abnormal ECG Confirmed by Kuldeep Martin ([id number]), editor publications DESTIN FRAUSTO ([id number]) on 03/18/2025 7:03:16 AM Referred By: Aman Aguilar Confirmed By: Kuldeep Martin
--- NOTE | 2025-03-17 16:23 | PAT.ANESEVAL ---
Pre-Assessment Diagnosis/Proposed Procedure Planned Operative Procedure(s): OPEN UMBILICAL HERNIA REPAIR WITH MESH(POSSIBLE) Anesthesia History Anesthesia History - pharmacy customer care specialist: Anesthesia History - pharmacy customer care specialist Hx Hospitalization No 03/16/25 14:54 Any Problems With Anesthesia No 03/16/25 14:54 Cholinesterase deficiency No 03/16/25 14:54 You/Your Family Experience No 03/16/25 14:54 fever (hyperthermia) with Relationship Recent Exposure to Contagious No 04/02/22 06:39 Disease Does patient have nerve No 03/16/25 14:54 stimulator Patient instructed to have device shut off --Does patient have Pacemaker or ICD? When Was Last Pacemaker Check QUESTION #4 FULL TEXT: You/Your Family Experience fever (hyperthermia) with Anesthesia Last Oral Intake Last Oral intake: Last Oral Intake NPO since Meds taken in AM with sips of water? Meds patient instructed to take am of surgery PONV PONV - pharmacy customer care specialist: PONV - pharmacy customer care specialist Female Yes 03/16/25 14:54 HX of Motion Sickness No 03/16/25 14:54 HX of N/V After Surgery No 03/16/25 14:54 Non-Smoker Yes 03/16/25 14:54 Duration of Surgery greater Yes 03/16/25 14:54 than 60 minutes Number of Risk Factors 3 03/16/25 14:54 PONV Score Moderate Risk 03/16/25 14:54 Height & Weight Height & Weight: Anesthesia: Height & Weight Height 4 ft 11 in 03/04/25 13:11 Respiratory Assessment Respiratory Assessment - pharmacy customer care specialist: Respiratory Tract Infection Hx - pharmacy customer care specialist Hx Respiratory Tract Infection No 03/16/25 14:54 STOP Sleep Apnea STOP Sleep Apnea - pharmacy customer care specialist: STOP Sleep Apnea - pharmacy customer care specialist Hx Hypertension Yes: CONTROLLED WITH MED 03/16/25 14:54 Hx Sleep Apnea No 03/16/25 14:54 CPAP No 04/02/22 08:20 BIPAP No 07/18/20 10:56 Do you snore loudly (louder No 03/16/25 14:54 than talking or can be heard Do you often feel tired/ Yes 03/16/25 14:54 fatigued/ sleepy during daytime? Has anyone observed you stop No 03/16/25 14:54 breathing during sleep? STOP Results Positive 03/16/25 14:54 QUESTION #5 FULL TEXT : Do you snore loudly (louder than talking or can be heard through closed doors)? Tobacco Use History Tobacco Use History - pharmacy customer care specialist: Tobacco Use History - pharmacy customer care specialist Tobacco Use Smoking Status Never smoker 03/16/25 14:54 Hx Tobacco Use No 03/16/25 14:54 Years Smoking Packs Smoked per Day Smoking Cessation Date was within the last 15 years Hx Smoking Cessation Date Hx Smoking Cessation Counseling Hematologic Medial History Hematologic Hx - pharmacy customer care specialist: Hematologic Medical Hx - technical documentation specialist Hx of Blood Transfusion No 03/16/25 14:54 Hx of Transfusion in last 3 No 03/16/25 14:54 Months Date of Last Transfusion (if within last 3 months) Ever experience any problems No 03/16/25 14:54 with transfusion(s)? Specify any problems Hx of Preganancy in last 3 No 03/16/25 14:54 Months Nurse Filling Out Transfusion DSCHRIBER 03/16/25 14:54 & Questions: Date: 03/16/25 03/16/25 14:54 Time: 14:55 03/16/25 14:54 Patient unable to answer at this time (ie. confused, unrespo /Reproduction History /Reproductive History - pharmacy customer care specialist: /Reproductive Hx- pharmacy customer care specialist Hx Now No 03/16/25 14:54 Gestational Age (in weeks): EDC: Hx Hx Para Hx Section SAB No 03/16/25 14:54 PFSH Medical History (Updated 03/16/25 @ 15:13 by Yessica Bhatia) Insulin dependent diabetes mellitus High cholesterol Migraine headache Injury of head and neck Dietary restriction History of hiatal hernia History of pain when walking Cardiology follow-up encounter History of Holter monitoring Umbilical hernia Wears glasses Rheumatoid arthritis DVT (deep venous thrombosis) Migraine headache History of GI bleed History of IBS Gastric reflux Non-smoker Shortness of breath on exertion Blackout History of echocardiogram History of stress test Hypertension h/o vision problems Back pain Arthritis Trigger finger release Fibromyalgia Neuropathy PCOS (polycystic ovarian syndrome) Home Medications ?Medication ?Instructions ?Recorded ?Last Taken ?Type docusate sodium 100 mg capsule 250 mg PO BID stool softener 11/11/16 05/02/18 22:00 History Fiber 1 cap PO BID BMs 05/03/18 Unknown History Insulin Pump Cartridge 1 unit SQ CONT diabetes 05/03/18 Unknown History omeprazole 20 mg capsule,delayed 40 mg PO DAILY PRN reflux 07/18/20 04/02/22 History release amitriptyline 50 mg tablet 50 mg PO QHS migraines 03/29/22 Unknown History folic acid 1 mg tablet 1 mg PO TH supplement 03/29/22 Unknown History methotrexate (PF) 7.5 mg/0.3 mL 7.5 mg subcut WESA RA 03/29/22 03/02/25 History subcutaneous syringe pravastatin 80 mg tablet 80 mg PO QHS 03/29/22 Unknown History lisinopril 40 mg tablet 40 mg PO DAILY 03/11/23 Unknown History Allergy/AdvReac Type Severity Reaction Status Date / Time metoclopramide HCl (From Allergy Anaphylaxis Verified 03/16/25 14:51 Reglan) Family History Grandmother Asthma Surgical History (Updated 03/16/25 @ 15:02 by Yessica Bhatia) History of cystoscopy History of colonoscopy History of esophagogastroduodenoscopy (EGD) History of appendectomy H/O shoulder surgery H/O: hysterectomy S/P trigger finger release Hx of fusion of cervical spine History of arthroscopy of right shoulder History of hysterectomy History of tonsillectomy Social History Smoking Status: Never smoker alcohol intake: never substance use type: does not use Audit: Pertinent Findings Pertinent Findings EKG Perinent findings: April 22, 2023. Normal sinus rhythm. Left axis deviation. Prolonged QT. Echo (EF%) pertinent findings: February 02, 2020. Ejection fraction is 60%. No aortic stenosis is noted. Consult pertinent findings: January 05, 2020. Dr. Staples. 1. Syncope-etiology is not entirely clear. Will get echo (see above) and 48-hour Holter (see below). 2. Hypertension-good control. Continue current medical therapy. 3. Rapid palpitations-patient does have a history of palpitations. Check 48-hour Holter (see below). Additional pertinent findings: Holter monitor January 19, 2020. Average rhythm was normal sinus rhythm. Total of 4 ventricular ectopic beats. And 1 isolated supraventricular ectopic beat. No atrial fibrillation. No ventricular tachycardia. Patient's diary did note chest pain and vertigo which did not correlate with the scan. Recommendation Anesthesia Recommendation Anesthesia recommendation: OPTIMIZED for anesthesia
[2025-03-18 13:34] LABS: Hematocrit 45.8 % (37-47); Hemoglobin 15.9 g/dL (12.0-15.0); Mean Corp Hgb Conc 34.7 g/dL (32-36); Mean Corpuscular Hgb 31.8 pg (27.0-32.0); Mean Corpuscular Volume 91.6 fL (81-99); Mean Platelet Vol. 9.8 fl (6.2-12.0); Platelet Count 368 K/mm3 (150-450); RBC Distribution Width CV 13.2 % (11.6-14.6); RBC Distribution Width SD 44.4 fl (35.1-43.9); White Blood Count 9.5 K/mm3 (4.4-11.0)
[2025-03-18 14:21] LABS: Hemoglobin A1c 6.9 % (<=5.6)
[2025-03-18 14:25] LABS: Anion Gap 13 (5-15); BUN 13 mg/dL (4-19); BUN/Creat Ratio 13.8 RATIO (10-20); Calcium,Total 9.1 mg/dL (7.6-11.0); Carbon Dioxide 19.3 mmol/L (21.0-32.0); Chloride 103 mmol/L (98-108); Creatinine, Serum 0.91 mg/dL (0.70-1.20); EST Glomerular Filtration Rate 71 (>60); Glucose 176 mg/dL (70-99); Potassium 4.2 mmol/L (3.3-5.1); Sodium Level 135 mmol/L (133-145)
[2025-03-30] VITALS (16 sets, daily range): BP systolic 71–112; BP diastolic 45–71; PULSE 73–98; RESP 16–20; TEMP 36.6–37.4; O2SAT 88–100; BMI 30.4
[2025-03-30] MEDS: Lactated Ringers 1,000 ML 15 ML IV ×2 (06:47→09:04)
--- NOTE | 2025-03-30 07:21 | PCM.HP.STD ---
HPI - General General Date of Admission: 03/30/25 Date of Service: 03/30/25 Chief Complaint: Umbilical hernia HPI Narrative DEANNE CAO, is a 60 F who presents for elective repair of an umbilical hernia. She does have rheumatoid arthritis and has been on methotrexate. I have offered her open repair with possible mesh. She presents today for this repair. She has been off of methotrexate for almost a month [facility] Medical History Insulin dependent diabetes mellitus High cholesterol Migraine headache Injury of head and neck Dietary restriction History of hiatal hernia History of pain when walking Cardiology follow-up encounter History of Holter monitoring Umbilical hernia Wears glasses Rheumatoid arthritis DVT (deep venous thrombosis) Migraine headache History of GI bleed History of IBS Gastric reflux Non-smoker Shortness of breath on exertion Blackout History of echocardiogram History of stress test Hypertension h/o vision problems Back pain Arthritis Trigger finger release Fibromyalgia Neuropathy PCOS (polycystic ovarian syndrome) Home Medications ?Medication ?Instructions ?Recorded ?Last Taken ?Type docusate sodium 100 mg capsule 250 mg PO BID stool softener 11/11/16 03/29/25 History Fiber 1 cap PO BID BMs 05/03/18 03/29/25 History Insulin Pump Cartridge 1 unit SQ CONT diabetes 05/03/18 03/30/25 History omeprazole 20 mg capsule,delayed 40 mg PO DAILY PRN reflux 07/18/20 03/30/25 History release amitriptyline 50 mg tablet 50 mg PO QHS migraines 03/29/22 03/29/25 History folic acid 1 mg tablet 1 mg PO TH supplement 03/29/22 03/24/25 History methotrexate (PF) 7.5 mg/0.3 mL 7.5 mg subcut WESA RA 03/29/22 03/01/25 History subcutaneous syringe pravastatin 80 mg tablet 80 mg PO QHS 03/29/22 03/29/25 History lisinopril 40 mg tablet 40 mg PO DAILY 03/11/23 03/30/25 History Allergy/AdvReac Type Severity Reaction Status Date / Time metoclopramide HCl (From Allergy Anaphylaxis Verified 03/30/25 06:36 Reglan) Family History Grandmother Asthma Surgical History History of cystoscopy History of colonoscopy History of esophagogastroduodenoscopy (EGD) History of appendectomy H/O shoulder surgery H/O: hysterectomy S/P trigger finger release Hx of fusion of cervical spine History of arthroscopy of right shoulder History of hysterectomy History of tonsillectomy Social History Smoking Status: Never smoker alcohol intake: never substance use type: does not use Vital Signs Vital Signs Vital Signs: 03/30/25 06:38 03/30/25 06:38 Temperature 97.8 F Temperature Source Temporal Pulse Rate 79 Respiratory Rate 18 Respiratory Pattern Normal Blood Pressure 111/66 Blood Pressure Mean 81 Blood Pressure Source Monitor Blood Pressure Position Semi-Fowlers Blood Pressure Location Left Arm Pulse Ox 98 Oxygen Delivery Method Room Air Weight Weight: 151 lb 0.266 oz Body Mass Index (BMI) 30.4 Results Lab / Micro Data 03/18/25 13:04 03/18/25 13:04 Assessment & Plan Assessment/Plan (1) Umbilical hernia: PLAN: Plan The patient is a 60-year-old female who presented to my office recently with an umbilical hernia that she wished to have repaired. I offered her an open repair with possible mesh. She has been on methotrexate which I have had her hold for almost a month. She presents today for repair. We reviewed the details of the planned procedure and she wishes to proceed. This will begin momentarily Charges/Coding Visit Charges Inpatient E&M: 29723 Init Hosp L1
[2025-03-30 07:24] LABS: Bedside Glucose 142 mg/dL (74-106)
--- NOTE | 2025-03-30 07:24 | PRE.ANES_ITS ---
ASA Classification* ASA Classification ASA Classification: 3 Assessment & Plan Anesthesia* Anesthesia Assessment Anesthesia Assessment: Discussed sedation and/or anesthesia options, risks, benefits, and alternatives with patient/parents/legal guardian/POA. Questions invited. The patient/parents/legal guardian/POA seems to understand and agrees to proceed with anesthesia plan. Reviewed the physical assessment, medical history, allergy history and patient home medications list prior to surgery/procedure/anesthetic and documented any changes. Performed airway and anesthesia risk assessments. Anesthesia Type Anesthesia Type: General Anesthesia Focused Assessment* Temperature: 97.8 F Pulse Rate: 79 Blood Pressure: 111/66 Respiratory Rate: 18 Pulse Ox: 98 Airway Assessment Mouth opens: >3 cm Mallampati Score: II Focused Labs Anesthesia Preop lab: CBC WBC 9.5 K/mm3 (4.4-11.0) 03/18/25 13:04 03/18/25 RBC 5.00 M/mm3 (4.2-5.4) 03/18/25 13:04 03/18/25 Hgb 15.9 g/dL (12.0-15.0) H 03/18/25 13:04 5 Hct 45.8 % (37-47) 03/18/25 13:04 03/18/25 Plt Count 368 K/mm3 (150-450) 03/18/25 13:04 03/18/25 CHEMISTRY Potassium 4.2 mmol/L (3.3-5.1) 03/18/25 13:04 03/18/25 Sodium 135 mmol/L (133-145) 03/18/25 13:04 03/18/25 Phosphorus 2.3 mg/dL (2.5-4.9) L 01/01/24 14:32 01/01/24 BUN 13 mg/dL (4-19) 03/18/25 13:04 03/18/25 Creatinine 0.91 mg/dL (0.70-1.20) 03/18/25 13:04 03/18/25 Glucose 176 mg/dL (70-99) H 03/18/25 13:04 03/18/25 POC Glucose 170 mg/dL (74-106) H 04/02/22 08:24 04/02/22 TSH 2.04 uIU/mL (0.358-3.74) 10/14/18 10:57 COAG PT 12.0 SECONDS (11.7-14.9) 04/01/22 09:59 Pre-Assessment Diagnosis/Proposed Procedure Planned Operative Procedure(s): OPEN UMBILICAL HERNIA REPAIR WITH MESH(POSSIBLE) Anesthesia History Anesthesia History - c++ quant developer: Anesthesia History - c++ quant developer Hx Hospitalization No 03/16/25 14:54 Any Problems With Anesthesia No 03/16/25 14:54 Cholinesterase deficiency No 03/16/25 14:54 You/Your Family Experience No 03/16/25 14:54 fever (hyperthermia) with Relationship Recent Exposure to Contagious No 03/30/25 06:38 Disease Does patient have nerve No 03/16/25 14:54 stimulator Patient instructed to have device shut off --Does patient have Pacemaker or ICD? When Was Last Pacemaker Check QUESTION #4 FULL TEXT: You/Your Family Experience fever (hyperthermia) with Anesthesia Last Oral Intake Last Oral intake: Last Oral Intake NPO since 22:00 03/30/25 06:38 Meds taken in AM with sips of Yes 03/30/25 06:38 water? Meds patient instructed to PRILOSEC 03/30/25 06:38 take am of surgery LISINOPRIL PONV PONV - c++ quant developer: PONV - c++ quant developer Female Yes 03/16/25 14:54 HX of Motion Sickness No 03/16/25 14:54 HX of N/V After Surgery No 03/16/25 14:54 Non-Smoker Yes 03/16/25 14:54 Duration of Surgery greater Yes 03/16/25 14:54 than 60 minutes Number of Risk Factors 3 03/16/25 14:54 PONV Score Moderate Risk 03/16/25 14:54 Height & Weight Height & Weight: Anesthesia: Height & Weight Height 4 ft 11 in 03/30/25 06:38 Weight: 68.5 kg 03/30/25 06:38 Body Mass Index (BMI) 30.4 03/30/25 06:38 Respiratory Assessment Respiratory Assessment - c++ quant developer: Respiratory Tract Infection Hx - c++ quant developer Hx Respiratory Tract Infection No 03/16/25 14:54 STOP Sleep Apnea STOP Sleep Apnea - c++ quant developer: STOP Sleep Apnea - c++ quant developer Hx Hypertension Yes: CONTROLLED WITH MED 03/16/25 14:54 Hx Sleep Apnea No 03/16/25 14:54 CPAP No 04/02/22 08:20 BIPAP No 07/18/20 10:56 Do you snore loudly (louder No 03/16/25 14:54 than talking or can be heard Do you often feel tired/ Yes 03/16/25 14:54 fatigued/ sleepy during daytime? Has anyone observed you stop No 03/16/25 14:54 breathing during sleep? STOP Results Positive 03/16/25 14:54 QUESTION #5 FULL TEXT : Do you snore loudly (louder than talking or can be heard through closed doors)? Tobacco Use History Tobacco Use History - c++ quant developer: Tobacco Use History - c++ quant developer Tobacco Use Smoking Status Never smoker 03/16/25 14:54 Hx Tobacco Use No 03/16/25 14:54 Years Smoking Packs Smoked per Day Smoking Cessation Date was within the last 15 years Hx Smoking Cessation Date Hx Smoking Cessation Counseling Hematologic Medial History Hematologic Hx - c++ quant developer: Hematologic Medical Hx - windows technical specialist Hx of Blood Transfusion No 03/16/25 14:54 Hx of Transfusion in last 3 No 03/16/25 14:54 Months Date of Last Transfusion (if within last 3 months) Ever experience any problems No 03/16/25 14:54 with transfusion(s)? Specify any problems Hx of Preganancy in last 3 No 03/16/25 14:54 Months Nurse Filling Out Transfusion DSCHRIBER 03/16/25 14:54 & Questions: Date: 03/16/25 03/16/25 14:54 Time: 14:55 03/16/25 14:54 Patient unable to answer at this time (ie. confused, unrespo /Reproduction History /Reproductive History - c++ quant developer: /Reproductive Hx- c++ quant developer Hx Now No 03/16/25 14:54 Gestational Age (in weeks): EDC: Hx Hx Para Hx Section SAB No 03/16/25 14:54 Active Medications Active Medications: Current Medications Generic Name Dose Route Start Last Admin Trade Name Freq PRN Reason Stop Dose Admin Cefazolin Sodium 2 gm/ Sodium 110 mls @ 150 mls/hr 03/30/25 07:30 Chloride IV 03/30/25 08:13 INTRAOP ONE Lactated Ringer's 1,000 mls @ 15 mls/hr 03/30/25 06:15 03/30/25 06:47 IV 15 mls/hr .Q48H ANA Administration PFSH Medical History Insulin dependent diabetes mellitus High cholesterol Migraine headache Injury of head and neck Dietary restriction History of hiatal hernia History of pain when walking Cardiology follow-up encounter History of Holter monitoring Umbilical hernia Wears glasses Rheumatoid arthritis DVT (deep venous thrombosis) Migraine headache History of GI bleed History of IBS Gastric reflux Non-smoker Shortness of breath on exertion Blackout History of echocardiogram History of stress test Hypertension h/o vision problems Back pain Arthritis Trigger finger release Fibromyalgia Neuropathy PCOS (polycystic ovarian syndrome) Home Medications ?Medication ?Instructions ?Recorded ?Last Taken ?Type docusate sodium 100 mg capsule 250 mg PO BID stool sof tener 11/11/16 03/29/25 History Fiber 1 cap PO BID BMs 05/03/18 History Insulin Pump Cartridge 1 unit SQ CONT diabetes 02/1503/30/25 History omeprazole 20 mg capsule,delayed 40 mg PO DAILY PRN re flux 07/18/20 03/30/25 History release amitriptyline 50 mg tablet 50 mg PO QHS migraines 03/0203/29/25 History folic acid 1 mg tablet 1 mg PO TH supplement 03/24/25 History methotrexate (PF) 7.5 mg/0.3 mL 7.5 mg subcut WESA RA 03/29/22 03/01/25 History subcutaneous syringe pravastatin 80 mg tablet 80 mg PO QHS 03/29/22 History lisinopril 40 mg tablet 40 mg PO DAILY 03/11/2303/03 History Allergy/AdvReac Type Severity Reaction Status Date / Time metoclopramide HCl (From Allergy Anaphylaxis Verified 03/30/25 06:36 Reglan) Family History Grandmother Asthma Surgical History History of cystoscopy History of colonoscopy History of esophagogastroduodenoscopy (EGD) History of appendectomy H/O shoulder surgery H/O: hysterectomy S/P trigger finger release Hx of fusion of cervical spine History of arthroscopy of right shoulder History of hysterectomy History of tonsillectomy Social History Smoking Status: Never smoker alcohol intake: never substance use type: does not use Review of Systems (Anesthesia) ROS Narrative System reviewed and no additional complaints, except as documented.
--- NOTE | 2025-03-30 07:30 | HERN_PTH ---
PATIENT: DEANNE CAO [place]: [facility] [place][id number] AGE/SX: 60/F ROOM: RE03/30/[address]: Dr. Aman Aguilar MD : [id number] BED: DIS: 03/30/2025 SPEC #: [id number] RECD: 03/30/25 12:11 STATUS: CACHORRO RECatarino #: [id number] GURU: 03/30/25 07:[address]: Aman Aguilar DEPT: SURGICAL PATHOLOGY RECD BY: Jason Abdalla ENTERED: 03/30/25 13:59 SP TYPE: Hernia OTHR DR: Dr. Santino Ruelas, DO Tissues: A - HERNIA Procedures: Surgery Specimen Level II HEADER OPERATION: Hernia, umbilical repair with mesh PRE-OP DIAGNOSIS: Umbilical hernia TISSUE SUBMITTED: A- Hernia sac MICROSCOPIC DIAGNOSIS A. Soft tissue, umbilical hernia repair: * Benign fibromembranous tissue consistent with hernia sac MICROSCOPIC DESCRIPTION Slides are reviewed. GROSS DESCRIPTION A. Received in formalin in a container labeled with the patient's name, date of , and hernia sac is a 3.7 x 1.9 x 1.3 cm chambers-pink and membranous fragment of soft tissue. Serial sections reveal rubbery chambers-pink surfaces with no hemorrhage or necrosis. Agent Based Modeler sections are submitted in A1. [facility] 03-30-2025 CPT:[id number]
[2025-03-30] MEDS: Cefazolin 2 GM in 0.9% Normal Saline (100mL Bag) 100 ML IV (07:31)
[2025-03-30] MEDS: Gentamicin 80 MG/2 ML Vial (07:59)
[2025-03-30] MEDS: Bupiv/Epi 0.25% 30 ML Vial (08:45)
--- NOTE | 2025-03-30 09:11 | PCM.POST.ANE ---
Anesthesia: Postop Eval I Current Vital Signs Temperature: 99 F Pulse Rate: 73 Blood Pressure: 80/56 Respiratory Rate: 20 Pulse Ox: 98 Oxygen Delivery Method: Nasal Cannula Oxygen Flow Rate (L/min): 4 Assessment Airway patent: Yes Spontaneous unlabored respirations: Yes Mental status: Asleep nausea: No Vomiting: No Anesthesia Complication: No Fluid Hydration Crystalloid volume administer (ml): 1,000 Total IV fluid infused: 1,000 Progress Note Anesthesia document: Postop Eval 1 completed: Yes
--- NOTE | 2025-03-30 09:16 | DCINST_ITS ---
Discharge Instructions Diet Discharge Diet: Light diet - advance as tolerated Activity Discharge Activity: Return to Normal Activity and May Shower May shower in (days): 1 Ice area for (Minutes): 30 Lifting Restrictions: No lifting pushing or pulling more than 20 pounds for 6 weeks. Additional Activity Instructions:: Wear abdominal binder as needed for comfort Dressing / Incision Call your doctor if your incision/area has: Continuous Slow Oozing, Sudden Increased Bleeding, Increased Pain/ Swelling, Increased Redness, Foul Smelling Discharge and Swelling at the incision site Call your doctor if you observe: Fever of 101 or Higher Remove Dressing in: 3 days Cleanse incision/area with: Soap & Water Follow Up Care Please Follow Up With: Aman Aguilar MD When: 2 weeks. Please call office to schedule appointment. Test Results: Test results from this visit will be discussed in further detail at your follow- up appointment, if applicable. Discharge Plan Admission Primary Reason for Your Visit: Umbilical hernia repair with mesh Attending Provider: Aman Aguilar Primary Care Provider: Santino Ruelas Instructions Print Language: Norwegian Discharge Orders/Prescriptions Prescriptions: New oxycodone-acetaminophen [Percocet] 5-325 mg tablet 1 tab PO Q8H PRN (Reason: pain) 4 Days Qty: 10 0RF Continued lisinopril 40 mg tablet 40 mg PO DAILY Patient Comments: Take 1 by mouth onceNdaily docusate sodium 100 MG capsule 250 mg PO BID Fiber 1 cap PO BID Insulin Pump Cartridge 1 unit SQ CONT omeprazole 20 MG capsule 40 mg PO DAILY PRN (Reason: reflux) pravastatin 80 mg Tablet 80 mg PO QHS folic acid 1 mg Tablet 1 mg PO TH amitriptyline 50 mg Tablet 50 mg PO QHS Held methotrexate (PF) 7.5 mg/0.3 mL Syringe 7.5 mg SUBCUT WESA Hold Instructions: Resume on 04/20/25. Referrals / Follow Up: Santino Ruelas DO [Primary Care Provider] - Disposition Disposition (needs filled in before D/C Order can be placed): Home, Self Care
--- NOTE | 2025-03-30 09:29 | OP.PCM_ITS ---
Problems Associated Problem List Diagnoses (1) Umbilical hernia: Procedures Digestive 40xxx-49xxx: [id number] RPR AA HRN 02-07 NCR/STRN Operative Report (Standard) Operative Information Date of Procedure: 03/30/25 Pre-Operative Diagnosis: Chronically incarcerated umbilical hernia Post-Operative Diagnosis: Same Surgery/Procedure Performed: Open umbilical hernia repair with mesh school photograph editor: Yes Chemical Compounder: Jevon Borges Tasks completed by financial assistance specialist: Closing and Retracting Additional captain assistant?: No Type of Anesthesia: Local and MAC RN Documented Start/Stop Times: Operation Date: 03/30/25 07:30 Case Time Into Pre-Op 03/30/25 06:05 Out of Pre-Op 03/30/25 07:25 Anesthesia Start 03/30/25 07:31 Into Room 03/30/25 07:31 Procedure Start 03/30/25 07:50 Procedure End 03/30/25 08:53 Anesthesia End 03/30/25 08:57 Out of Room 03/30/25 08:57 Into Recovery 03/30/25 09:00 Procedure Start Time: 07:50 Procedure Stop Time: 08:53 Select all DRAINS/GRAFTS/IMPLANTS that apply: Prosthetic device Prosthetic device details: Bard Ventralex mesh size 6.4 cm Special Medications: 2 g Ancef IV preop Estimated Blood Loss: 5 mL Specimen collected: No Description of surgery: The patient is a 60-year-old female who presented to the office with a chronic umbilical hernia. She had had this for quite some time. This was nonreducible and was causing her increasing pain and discomfort. I offered her an open umbilical hernia repair with probable mesh. We discussed the details of the planned procedure and she wished to proceed. She does have a history of rheumatoid arthritis for which she is on methotrexate. I had her hold this for about 3 to 4 weeks prior to surgery. The patient was brought to the op room today following informed consent. Preoperative antibiotics were given and a timeout was performed. She was placed supine on the operative table with arms comfortably outstretched and arm boards. A MAC anesthesia was induced. Once adequately sedated the abdomen was then prepped and draped in the usual sterile manner. Local anesthetic was infiltrated in the region of the planned incision. She had a previous transverse incision just above the umbilicus. This was utilized as part of the incision. Incision was made using #15 blade. Bovie electrocautery was then used to dissect down through subtendinous tissues. The skin of the umbilicus was then detached from the hernia sac. The hernia sac was then excised using electrocautery. The contents of the hernia was healthy viable but chronically incarcerated omental fat. The fascial edges were cleared and this allowed the omentum to be reduced back into the abdomen. Fascial defect size was 3 cm in diameter. The fascial quality was fair. At this point I felt that the mesh would be beneficial as I thought that the size of the defect along with the fascial quality would preclude a primary repair. A 6.4 cm Ventralex mesh was selected. This was placed in antibiotic solution. This was inserted into the fascial defect. This was then sutured to the surrounding fascia and 8 separate points using 0 Nurolon. This held the mesh in good position. The wound was then copiously irrigated with antibiotic solution. I then closed the fascia using interrupted #1 Nurolon. Several interrupted sutures were used to close this fascia. Once this closure was performed, the wound was again copiously irrigated with antibiotic solution. Next the skin of the umbilicus was then reaffixed to the underlying fascia using 3-0 Vicryl. 3-0 Vicryl was also used to reapproximate the subdermal layer. Finally 4-0 Vicryl was then used in a running manner to close the skin incision. Skin glue was then applied to the incision. Once dry, sterile cottonball's were placed into the umbilicus. A large OpSite was then applied on top of this. The patient was then awakened from anesthesia. Abdominal binder was placed. She was taken to recovery in good condition. A REGULATORY AFFAIRS SPEC was utilized as a benefits assistant. His role included assistance with retraction and skin closure. Surgical Findings: 3 cm fascial defect with incarcerated omentum Complications Complications: No Admit VTE Documentation VTE Present on Admission: No VTE Mechan Device Prophylaxis: SCD's VTE Pharm Prophylaxis ordered?: No Reason prophylaxis not ordered: Treatment Not Indicated
--- NOTE | 2025-03-30 10:39 | POSTOPAN2_ITS ---
Anesthesia Postop Eval I Sum Postop Eval Completion status Anesthesia document: Postop Eval 1 completed: Yes Anesthesia Postop Eval I Summary Anesthesia Postop Eval I Summary: Anesthesia Postop Eval I: Assessment Summary Airway patent Yes 03/30/25 09:12 [email or web address] Spontaneous unlabored Yes 03/30/25 09:12 [email or web address] respirations Mental status Asleep 03/30/25 09:12 [email or web address] nausea No 03/30/25 09:12 [email or web address] Vomiting No 03/30/25 09:12 [email or web address] Anesthesia Postop Eval I: Fluid Summary Crystalloid volume administer 1,000 03/30/25 09:12 [email or web address] (ml) Colloids volume administered ( ml) Blood Product volume administered (ml) Total IV fluid infused 1,000 03/30/25 09:12 [email or web address] Anesthesia Postop Eval I: Summary Notes Anesthesia Complication No 03/30/25 09:12 [email or web address] Anesthesia Complication Comment: Post-operative progress note Anesthesia: Postop Eval II Evaluation Mental status: Awake Pain Level: 0 nausea: No Vomiting: No
--- NOTE | 2025-03-30 10:39 | PCM.POSTANE2 ---
Anesthesia Postop Eval I Sum Postop Eval Completion status Anesthesia document: Postop Eval 1 completed: Yes Anesthesia Postop Eval I Summary Anesthesia Postop Eval I Summary: Anesthesia Postop Eval I: Assessment Summary Airway patent Yes 03/30/25 09:12 CARBON [email or web address] [email or web address] Spontaneous unlabored Yes 03/30/25 09:12 CARBON PAPER [email or web address] respirations Mental status Asleep 03/30/25 09:12 CARBON [email or web address] [email or web address] nausea No 03/30/25 09:12 CARBON PAPER [email or web address] Vomiting No 03/30/25 09:12 CARBON PAPER [email or web address] Anesthesia Postop Eval I: Fluid Summary Crystalloid volume administer 1,000 03/30/25 09:12 CARBON PAPER [email or web address] (ml) Colloids volume administered ( ml) Blood Product volume administered (ml) Total IV fluid infused 1,000 03/30/25 09:12 CARBON PAPER [email or web address] Anesthesia Postop Eval I: Summary Notes Anesthesia Complication No 03/30/25 09:12 CARBON PAPER [email or web address] Anesthesia Complication Comment: Post-operative progress note Anesthesia: Postop Eval II Evaluation Mental status: Awake Pain Level: 0 nausea: No Vomiting: No
[2025-03-30] MEDS: oxyCODONE 5 MG Tablet PO (11:45)
[2025-03-30] MEDS: Acetaminophen 325 MG Tablet PO (11:45)
== END 2025-03-30 13:46 | disposition home or self-care (01) ==
LOC: SDC 05:54 → AC 05:55
PROVIDERS: Anesthesiology; PCP Family Medicine; Referring Provider Surgery; Visit Provider Surgery
PROC: (CPT 49594; principal; 2025-03-30 07:15)
DX: K42.0 Umbilical hernia with obstruction, without gangrene (principal); M06.9 Rheumatoid arthritis, unspecified; E11.40 Type 2 diabetes mellitus with diabetic neuropathy, unspecified; E78.00 Pure hypercholesterolemia, unspecified; I10 Essential (primary) hypertension; Z79.899 Other long term (current) drug therapy; Z96.41 Presence of insulin pump (external) (internal); K21.9 Gastro-esophageal reflux disease without esophagitis
CPT/HCPCS: 49594; 00830; 36415; 80048; 82962; 83036; 85027; 88302; 93005; C1781; J2405

== ENCOUNTER 2025-05-04 06:31 | Inpatient (IN) | payer OTHER, SELFPAY ==
[2025-05-04 06:31] VITALS: BP 176/78; PULSE 93; RESP 18; TEMP 36.9; O2SAT 96; BMI 33.0
--- NOTE | 2025-05-04 06:48 | CT_ITS ---
PROCEDURE: SINUS/FACIAL BONE REASON FOR EXAM: RIGHT PERIORBITAL VERSUS ORBITAL CELLULITIS TECHNIQUE: CT of the facial bones without contrast. Coronal and Sagittal reconstruction series were provided. One or more dose reduction techniques were used (e.g., Automated exposure control, adjustment of the mA and/or kV according to patient size, use of iterative reconstruction technique). COMPARISON: CT exam of 06/30/2021 FINDINGS: Moderate mucosal thickening is seen of the right maxillary sinus, mild of the left maxillary sinus. [id number] right ethmoid air cell mucosal disease is also seen. No air-fluid level is noted. The remaining paranasal sinuses appear clear, as do the mastoid air cells. Of the right orbit, extensive right sided preseptal edema is seen, but also with postseptal extension seen medially as well. Edema in the preseptal left orbit is present, but no left-sided postseptal extension is seen No loculated fluid collection is noted. No abnormality of the globes is seen. No acute osseous changes are noted. CT/Sinus/Facial Bone IMPRESSION: At the right orbit, extensive right sided preseptal edema is seen, but also wit h postseptal extension seen medially as well, consistent with postseptal extension of the extant cellulitis. Reading Location: [id number]
[2025-05-04] MEDS: Ondansetron 4 MG/2 ML Vial IV (07:22)
[2025-05-04] MEDS: Ketorolac 30 MG/ML Syringe IV ×3 (07:22→20:14)
[2025-05-04] MEDS: 0.9% Normal Saline (1000mL) 1,000 ML 999 ML IV (07:22)
[2025-05-04 07:25] LABS: Absolute Lymphocyte Count 1.86 X10^3/uL (0.83-4.51); Absolute Neutrophil Count 9.5 X10^3/uL (2.0-7.7); Basophil# 0.05 X10^3/uL; Basophil% 0.4 % (0-1); Eosinophil# 0.07 X10^3/uL; Eosinophils% 0.6 % (0-5); Hematocrit 45.2 % (37-47); Hemoglobin 15.5 g/dL (12.0-15.0); Lymphocyte # 1.86 X10^3/ul (0.83-4.51); Lymphocyte % 14.7 % (19-41); Mean Corp Hgb Conc 34.3 g/dL (32-36); Mean Corpuscular Hgb 31.3 pg (27.0-32.0); Mean Corpuscular Volume 91.3 fL (81-99); Mean Platelet Vol. 9.3 fl (6.2-12.0); Monocyte# 1.16 X10^3/uL; Monocyte% 9.1 % (0-10); NRBC Flagged by Analyzer 0 % (0-5); Neutrophil # 9.49 X10^3/uL (2.7-7.7); Neutrophil % 74.8 % (47-70); Platelet Count 364 K/mm3 (150-450); RBC Distribution Width CV 12.9 % (11.6-14.6); RBC Distribution Width SD 42.7 fl (35.1-43.9); Red Blood Count 4.95 M/mm3 (4.2-5.4); White Blood Count 12.7 K/mm3 (4.4-11.0)
--- NOTE | 2025-05-04 07:33 | EX.ED.VIS.EY ---
HPI History of Present Illness Chief Complaint: Eye Problem Informant: patient Narrative Narrative: Patient is a 60-year-old female with past medical history of hypertension hyperlipidemia insulin-dependent diabetes and rheumatoid arthritis currently on methotrexate. She states that over the last 2 to 3 days she has noticed increased swelling redness and pain around her right eye. She states with this she has had a marked fluid headache as well as a bout of nausea and vomiting. She states that her pain and swelling continues to worsen and with concern for infection she presents for evaluation. [facility] Medical History Insulin dependent diabetes mellitus High cholesterol Migraine headache Injury of head and neck Dietary restriction History of hiatal hernia History of pain when walking Cardiology follow-up encounter History of Holter monitoring Umbilical hernia Wears glasses Rheumatoid arthritis DVT (deep venous thrombosis) Migraine headache History of GI bleed History of IBS Gastric reflux Non-smoker Shortness of breath on exertion Blackout History of echocardiogram History of stress test Hypertension h/o vision problems Back pain Arthritis Trigger finger release Fibromyalgia Neuropathy PCOS (polycystic ovarian syndrome) Home Medications ?Medication ?Instructions ?Recorded ?Last Taken ?Type docusate sodium 100 mg capsule 250 mg PO BID stool softener 11/11/16 03/29/25 History Fiber 1 cap PO BID BMs 05/03/18 03/29/25 History Insulin Pump Cartridge 1 unit SQ CONT diabetes 05/03/18 03/30/25 History omeprazole 20 mg capsule,delayed 40 mg PO DAILY PRN reflux 07/18/20 03/30/25 History release amitriptyline 50 mg tablet 50 mg PO QHS migraines 03/29/22 03/29/25 History folic acid 1 mg tablet 1 mg PO TH supplement 03/29/22 03/24/25 History methotrexate (PF) 7.5 mg/0.3 mL 7.5 mg subcut WESA RA 03/29/22 03/01/25 History subcutaneous syringe Held on 03/30/25. Instructions: Resume on 04/20/25. pravastatin 80 mg tablet 80 mg PO QHS 03/29/22 03/29/25 History lisinopril 40 mg tablet 40 mg PO DAILY 03/11/23 03/30/25 History Allergy/AdvReac Type Severity Reaction Status Date / Time metoclopramide HCl (From Allergy Anaphylaxis Verified 05/04/25 06:34 Reglan) Family History Grandmother Asthma Surgical History S/P umbilical hernia repair, follow-up exam History of cystoscopy History of colonoscopy History of esophagogastroduodenoscopy (EGD) History of appendectomy H/O shoulder surgery H/O: hysterectomy S/P trigger finger release Hx of fusion of cervical spine History of arthroscopy of right shoulder History of hysterectomy History of tonsillectomy Social History Smoking Status: Never smoker alcohol intake: never substance use type: does not use ROS ROS ED Constitutional Constitutional ED: Denies chills or fever(s) Eyes Eyes: Reports other Details: Positive right eye periorbital swelling and pain ENT ENT ED: Denies sore throat Cardiovascular Cardiovascular: Denies chest pain Respiratory/Chest Respiratory/Chest: Denies cough or dyspnea Gastrointestinal Gastrointestinal: Reports nausea and vomiting; Denies abdominal pain or diarrhea Genitourinary Genitourinary ED: Denies dysuria Musculoskeletal Musculoskeletal: Denies myalgias Integumentary Reports other Details: Positive swelling with erythema to the right periorbital region ; Denies rash Neurologic Neurologic: Reports other Details: Positive fatigue ; Denies headache(s) Hematologic/Lymphatic Hematologic/Lymphatic: Denies easy bleeding or easy bruising EXAM Physical Exam Const Vital Signs: 05/04/25 06:31 Temperature 98.4 F Temperature Source Oral Pulse Rate 93 Respiratory Rate 18 Blood Pressure 176/78 H Blood Pressure Mean 110 Pulse Ox 96 Oxygen Delivery Method Room Air Positive well nourished and well developed General Appearance ED: well developed HEENT HEENT Narrative: Normocephalic atraumatic Eyes PERRL and EOMs intact bilaterally Eyes Narrative: Pupils are equal reactive to light and accommodation extraocular muscles are intact There is asymmetric soft tissue swelling mainly along the right lower periorbital region with slight extension into the upper. There is mild asymmetric erythema and warmth as well. No obvious abscess formation There is no scleral injection noted or conjunctival discharge There is pain on palpation along the right periorbital region but no increased pain with eye motion. Neck supple Neck Narrative: No nuchal rigidity or meningeal sign Resp normal respiratory effort and clear to auscultation bilaterally Cardio regular rate and regular rhythm GI non-tender, non-distended and no masses GI Narrative: Abdomen is soft nontender nondistended with hyperactive bowel sounds. No voluntary guarding or rigidity or pulsatile mass. Palpation: soft Extremity normal to inspection Neuro oriented x3, CN's II-XII intact bilaterally, moves all extremities and no sensory deficits noted Sensorium / Orientation: alert Motor Exam: strength 5/5 throughout Psych mental status grossly normal Skin Skin Narrative: Soft tissue changes of swelling erythema and warmth along the right periorbital region as documented above MDM MDM MDM Narrative Medical decision making narrative: Patient presented to the ER hypertensive but has a past medical history of this and otherwise with stable vitals. She had increased redness swelling and pain along the right periorbital region without trauma. Exam does not show internal eye injury such as conjunctivitis or concern for corneal abrasion. She is able to move her eye without pain going against orbital cellulitis. However with the sudden onset of swelling and pain without trauma there is concern for developing periorbital cellulitis. Secondary to this basic blood work and a CT scan of the face was obtained. The patient is immunosuppressed with history of diabetes and arthritis currently on methotrexate. Despite this suppression she does have leukocytosis with left shift. At this time the remainder of her labs as well as CT report are still pending. With the patient's immunosuppression and leukocytosis with left shift she may need admitted for IV antibiotics. As the patient's the patient imaging results and remainder labs are still pending she will be signed out to the day physician Dr. Camargo. History & Record Review Discussion w/independent historian: Patient Lab Data Attestation: I reviewed the patient's lab results. Labs: Laboratory Results - last 24 hr 05/04/25 07:11 WBC 12.7 H RBC 4.95 Hgb 15.5 H Hct 45.2 MCV 91.3 MCH 31.3 MCHC 34.3 RDW Std Deviation 42.7 RDW Coeff of Tobias 12.9 Plt Count 364 MPV 9.3 Immature Gran % (Auto) 0.400 Neut % (Auto) 74.8 H Lymph % (Auto) 14.7 L Steele % (Auto) 9.1 Eos % (Auto) 0.6 Baso % (Auto) 0.4 Absolute Neuts (auto) 9.5 H Absolute Lymphs (auto) 1.86 Nucleated RBC % 0 Discharge Plan Triage Chief Complaint: Eye Problem ED Provider: Moody Thacker Dx/Rx/DC Orders Clinical Impression: Essential (primary) hypertension, Periorbital cellulitis of right eye, Rheumatoid arthritis, Insulin dependent diabetes mellitus Prescriptions: No Action lisinopril 40 mg tablet 40 mg PO DAILY Patient Comments: Take 1 by mouth onceNdaily docusate sodium 100 MG capsule 250 mg PO BID Fiber 1 cap PO BID Insulin Pump Cartridge 1 unit SQ CONT omeprazole 20 MG capsule 40 mg PO DAILY PRN (Reason: reflux) pravastatin 80 mg Tablet 80 mg PO QHS folic acid 1 mg Tablet 1 mg PO TH methotrexate (PF) 7.5 mg/0.3 mL Syringe 7.5 mg SUBCUT WESA amitriptyline 50 mg Tablet 50 mg PO QHS Primary Care Provider: Santino Ruelas Referrals: Santino Ruelas DO [Primary Care Provider] - Print Language: Bulgarian
[2025-05-04 07:57] LABS: Lactic Acid 1.3 mmol/L (0.0-2.0)
[2025-05-04 07:59] LABS: Anion Gap 14 (5-15); BUN 8 mg/dL (4-19); BUN/Creat Ratio 9.5 RATIO (10-20); Calcium,Total 11.2 mg/dL (7.6-11.0); Carbon Dioxide 23.3 mmol/L (21.0-32.0); Chloride 104 mmol/L (98-108); Creatinine, Serum 0.81 mg/dL (0.70-1.20); EST Glomerular Filtration Rate 83 (>60); Estimated Creatinine Clearance 64.78 ml/min (50-250); Glucose 171 mg/dL (70-99); Procalcitonin 0.71 ng/mL (<=0.10); Sodium Level 141 mmol/L (133-145)
[2025-05-04] MEDS: Piperacil/Tazobactam 3.375 GM in 0.9% Normal Saline (50mL MB+) 50 ML IV ×3 (08:20→22:29)
[2025-05-04] MEDS: Acetaminophen 500 MG Tablet 1000 MG PO ×3 (08:27→22:28)
[2025-05-04 08:36] VITALS: BP 131/75; PULSE 80; RESP 16; O2SAT 96
[2025-05-04 11:35] VITALS: BMI 30.2
[2025-05-04] MEDS: oxyCODONE 5 MG Tablet PO (11:50)
[2025-05-04] MEDS: Enoxaparin 40 MG/0.4 ML Syringe SC (11:50)
[2025-05-04 12:00] VITALS: BP 127/68; PULSE 71; RESP 16; TEMP 36.8; O2SAT 94
--- NOTE | 2025-05-04 12:11 | CASEMGMT ---
Care Management Face to Face with patient for initial transition planning/care coordination assessment in the ED.? This writer technical publications introduced self and role at [facility]. Patient alert and oriented. Patient willing to participate in assessment and is able to answer all questions appropriately.? Care providers, pharmacy, and demographics verified. Admitting Diagnosis: ?Eye problem Other diagnosis history: ?insulin dependent diabetes, rheumatoid arthritis, DVT PCP: Suraj Specialists: ?[facility] 1 x per year Preferred Pharmacy: [facility] Insurance: ?[employer] Prescription Benefit: ?yes Living Will/HPOA: ?has both LW and HPOA, not on file has been asked to bring in copy LNOK: Living Arrangements: ?Lives with and son in two story home, independent with ADLs and IADLs. Transportation: ?patient drives DME: ?cane, walker, crutches HHC: ?none SNF/Rehab: ?none Community Resources: ?none Behavioral Health History: ?none Patient goals: Patient wishes to discharge home, denies need for home health care at this time. Patient denies any further needs or concerns at this time. Disposition Plan: admission to acute; RN CM/SW to follow for discharge planning needs that may arise. Malaika Weeks, INSIDE SALES MANAGER, IC DESIGNER CUSTOM
[2025-05-04] MEDS: Docusate Sodium 100 MG Capsule 200 MG PO ×2 (12:16→22:27)
[2025-05-04] MEDS: Vancomycin HCl 1,750 MG in 0.9% Normal Saline (500mL Bag) 500 ML 250 MG IV (12:16)
[2025-05-04] MEDS: 0.9% Normal Saline (250mL Bag) 250 ML 15 ML IV (12:17)
--- NOTE | 2025-05-04 12:29 | PHA.PHARE_ITS ---
Consult Antibiotic Management Pharmacy has been consulted to manage selected antibiotic: Vancomycin Type of Intervention Type of Consult: New start Suspected Infection Suspected Infection: Skin/Soft tissue Labs Labs: Sodium 141 mmol/L (133-145) 05/04/25 07:11 Potassium 4.0 mmol/L (3.3-5.1) 05/04/25 07:11 Chloride 104 mmol/L (98-108) 05/04/25 07:11 Carbon Dioxide 23.3 mmol/L (21.0-32.0) 05/04/25 07:11 Anion Gap 14 (5-15) 05/04/25 07:11 BUN 8 mg/dL (4-19) 05/04/25 07:11 Creatinine 0.81 mg/dL (0.70-1.20) 05/04/25 07:11 Est GFR (MDRD) Non-Af 83 (>60) 05/04/25 07:11 BUN/Creatinine Ratio 9.5 RATIO (10-20) L 05/04/25 07:11 Glucose 171 mg/dL (70-99) H 05/04/25 07:11 Dosing Weight Weight used for dosin kg Estimated Creatinine Clearance Estimated Creatinine Clearance: 65 ML/MIN Goal Trough Goal Trough: 15-20 mcg/mL Pharmacy Plan for Drug Dosing Pharmacy Plan for Drug Dosing: Give loading dose of 1750mg IV x1, then continue with 750mg IV q12h per [facility] dosing chart. Check a trough before the 4th overall dose. Pharmacy Service will continue to monitor and adjust dosing as required. Follow-Up Labs Follow-Up Labs: Trough: Vancomycin Date/Time Labs Ordered Labs to be done on [date and time ordered]: 05/05/25 23:30
--- NOTE | 2025-05-04 13:51 | PCM.HP.STD ---
[facility] - General General Date of Admission: 05/04/25 Date of Service: 05/04/25 Chief Complaint: right eye pain. HPI Narrative DEANNE CAO, is a 60 F who presents with right eye pain. This is a 60-year-old female with insulin-dependent diabetes type 1 and who has been diagnosed with rheumatoid and psoriatic arthritis and is on methotrexate and Tremfya. Presents with right eye pain. Symptoms began Friday with burning. Was using some compresses but still got worse. Patient has a history of clogged lacrimal duct on her right so constantly drains. She feels that she may have irritated by rubbing her eye which she does relatively routinely. But the swelling just got more intense and irritated to the point where she could not even open her eye so she presented to the emergency room today. She had a CAT scan that showed extensive right-sided preseptal edema seen but also with postseptal extension seen medially as well consistent with postseptal extension of extent cellulitis. ED spoke to her general car supervisor yard, Dr. Warren, and the case was reviewed. He stated that send there is no abscess that there is no need to transfer and that the patient can remain at this hospital but to be treated with antibiotics and that he would be happy to see the patient as outpatient. Patient received pip-tazo in the emergency room. Patient has never had any issues like this in the past. She does complain of chills but no overt fever with a Tmax of 100 Fahrenheit. [facility] Medical History Insulin dependent diabetes mellitus High cholesterol Migraine headache Injury of head and neck Dietary restriction History of hiatal hernia History of pain when walking Cardiology follow-up encounter History of Holter monitoring Umbilical hernia Wears glasses Rheumatoid arthritis DVT (deep venous thrombosis) Migraine headache History of GI bleed History of IBS Gastric reflux Non-smoker Shortness of breath on exertion Blackout History of echocardiogram History of stress test Hypertension h/o vision problems Back pain Arthritis Trigger finger release Fibromyalgia Neuropathy PCOS (polycystic ovarian syndrome) Home Medications ?Medication ?Instructions ?Recorded ?Last Taken ?Type docusate sodium 100 mg capsule 250 mg PO BID stool softener 11/11/16 03/29/25 History Fiber 1 cap PO BID BMs 05/03/18 03/29/25 History Insulin Pump Cartridge 1 unit SQ CONT diabetes 05/03/18 05/04/25 History omeprazole 20 mg capsule,delayed 40 mg PO DAILY PRN reflux 07/18/20 03/30/25 History release amitriptyline 50 mg tablet 50 mg PO QHS migraines 03/29/22 03/29/25 History folic acid 1 mg tablet 1 mg PO TH supplement 03/29/22 03/24/25 History methotrexate (PF) 7.5 mg/0.3 mL 7.5 mg subcut WESA RA 03/29/22 03/01/25 History subcutaneous syringe Held on 03/30/25. Instructions: Resume on 04/20/25. pravastatin 80 mg tablet 80 mg PO QHS 03/29/22 03/29/25 History lisinopril 40 mg tablet 40 mg PO DAILY 03/11/23 05/04/25 History Allergy/AdvReac Type Severity Reaction Status Date / Time metoclopramide HCl (From Allergy Anaphylaxis Verified 05/04/25 06:34 Reglan) Family History (Updated 05/04/25 @ 14:[address] Arslan Grullon DO) Grandmother Asthma Grandfather Arthritis Surgical History S/P umbilical hernia repair, follow-up exam History of cystoscopy History of colonoscopy History of esophagogastroduodenoscopy (EGD) History of appendectomy H/O shoulder surgery H/O: hysterectomy S/P trigger finger release Hx of fusion of cervical spine History of arthroscopy of right shoulder History of hysterectomy History of tonsillectomy Social History Smoking Status: Never smoker alcohol intake: never substance use type: does not use ROS ROS Narrative Generalized headache. Sore throat. All review of systems were negative except as mentioned above in the history of present illness and the other review of systems. Vital Signs Vital Signs Vital Signs: 05/04/25 06:31 05/04/25 08:36 05/04/25 12:00 Temperature 36.9 C Temperature Source Oral Pulse Rate 93 80 Pulse Strength Respiratory Rate 18 16 Respiratory Effort Normal Respiratory Depth Normal Respiratory Pattern Normal Blood Pressure 176/78 H 131/75 H Blood Pressure Mean 110 93 Pulse Ox 96 96 Oxygen Delivery Method Room Air Room Air Room Air 05/04/25 12:00 05/04/25 12:00 Temperature 36.8 C Temperature Source Oral Pulse Rate 71 Pulse Strength Normal (2+) Respiratory Rate 16 Respiratory Effort Respiratory Depth Respiratory Pattern Blood Pressure 127/68 H Blood Pressure Mean 87 Pulse Ox 94 Oxygen Delivery Method Room Air Weight Weight: 68.039 kg Body Mass Index (BMI) 30.2 Physical Exam Const alert and no apparent distress HEENT normocephalic, head/scalp atraumatic, hearing grossly normal bilaterally and moist oral mucous membranes Eyes EOMs intact bilaterally Eyes Narrative: Matting of the right eye. Patient has extensive edema over her right eye and unable to present a proptosis given the swelling. Neck no lymphadenopathy and supple Resp normal respiratory effort, no retractions, no use of accessory muscles and clear to auscultation bilaterally Cardio regular rate, regular rhythm, S1 normal heart sound and S2 normal heart sound GI normal to inspection, nondistended, normoactive bowel sounds, soft to palpation, non-tender, non-distended and hepatosplenomegaly Neuro Sensorium / Orientation: awake and alert Psych affect normal Results Lab / Micro Data 05/04/25 07:11 05/04/25 07:11 Labs: Laboratory Results - last 24 hr 05/04/25 07:11: WBC 12.7 H, RBC 4.95, Hgb 15.5 H, Hct 45.2, MCV 91.3, MCH 31.3, MCHC 34.3, RDW Std Deviation 42.7, RDW Coeff of Tobias 12.9, Plt Count 364, MPV 9.3, Immature Gran % (Auto) 0.400, Neut % (Auto) 74.8 H, Lymph % (Auto) 14.7 L, Collier % (Auto) 9.1, Eos % (Auto) 0.6, Baso % (Auto) 0.4, Absolute Neuts (auto) 9.5 H, Absolute Lymphs (auto) 1.86, Nucleated RBC % 0, Sodium 141, Potassium 4.0, Chloride 104, Carbon Dioxide 23.3, Anion Gap 14, BUN 8, Creatinine 0.81, Estim Creat Clear Calc 64.78, Est GFR (MDRD) Non-Af 83, BUN/Creatinine Ratio 9.5 L, Glucose 171 H, Lactic Acid 1.3, Calcium 11.2 H, Procalcitonin 0.71 H Imaging Radiology Impression Facial/Sinus 05/04/25 06:48 IMPRESSION: At the right orbit, extensive right sided preseptal edema is seen, but also with postseptal extension seen medially as well, consistent with postseptal extension of the extant cellulitis. Reading Location: [address] Assessment & Plan Assessment/Plan (1) Periorbital cellulitis of right eye: PLAN: No abscess. EOMI. Continue abx with pip/tazo and vancomycin. Elevate the head. Cold compress as tolerated. If worse, repeat imaging. Discussed that if worse and development of abscess, she will require being transferred to a tertiary facility. If improves, eventual discharge home w PO abx and follow up with Dr. Warren. (2) Headache: PLAN: headache/migraine has had a h/o migraines requiring prophylactic mgmt with amitriptyline likely worse given above. schedule acetaminophen, PRN IV ketorolac DW patient about rebound phenomenon with narcotics and recommended against their use with the headache, but if she is having eye pain due to the cellulitis, that would be appropriate. PLAN: Plan RA/PA: unclear if patient has either. She says she will be following up with rheumatology in [place]. In the meantime, hold MTX, Tremfya. DM1: on insulin pump for 30 years and has a CGM. She is comfortable managing her blood sugars here. VTE prophylaxis: LMWH Charges/Coding Visit Charges Inpatient E&M: 12864 Init Hosp L3
[2025-05-04] MEDS: 0.9% Saline Lock 10 ML Syringe IV ×2 (14:01→20:14)
[2025-05-04 15:11] VITALS: BP 140/72; PULSE 85; RESP 16; TEMP 36.6; O2SAT 96
[2025-05-04 21:15] VITALS: BP 118/68; PULSE 82; RESP 16; TEMP 36.8; O2SAT 97
[2025-05-04] MEDS: Amitriptyline 25 MG Tablet 50 MG PO (22:27)
[2025-05-04] MEDS: Pravastatin 80 MG Tablet PO (22:29)
[2025-05-05] MEDS: Vancomycin HCl 750 MG in 0.9% Normal Saline (250mL Bag) 250 ML 250 MG IV (00:29)
[2025-05-05 02:35] VITALS: BP 108/59; PULSE 78; RESP 16; TEMP 36.8; O2SAT 96
[2025-05-05] MEDS: Ketorolac 30 MG/ML Syringe IV ×4 (02:37→23:36)
[2025-05-05] MEDS: 0.9% Saline Lock 10 ML Syringe IV ×3 (02:41→23:37)
[2025-05-05] MEDS: Piperacil/Tazobactam 3.375 GM in 0.9% Normal Saline (50mL MB+) 50 ML IV ×2 (06:37→22:34)
[2025-05-05] MEDS: Acetaminophen 500 MG Tablet 1000 MG PO ×3 (06:42→22:38)
[2025-05-05 06:44] LABS: Absolute Lymphocyte Count 2.44 X10^3/uL (0.83-4.51); Absolute Neutrophil Count 7.2 X10^3/uL (2.0-7.7); Basophil# 0.04 X10^3/uL; Basophil% 0.4 % (0-1); Eosinophil# 0.47 X10^3/uL; Eosinophils% 4.1 % (0-5); Hematocrit 36.6 % (37-47); Hemoglobin 12.3 g/dL (12.0-15.0); Lymphocyte # 2.44 X10^3/ul (0.83-4.51); Lymphocyte % 21.5 % (19-41); Mean Corp Hgb Conc 33.6 g/dL (32-36); Mean Corpuscular Hgb 31.2 pg (27.0-32.0); Mean Corpuscular Volume 92.9 fL (81-99); Mean Platelet Vol. 9.8 fl (6.2-12.0); Monocyte# 1.21 X10^3/uL; Monocyte% 10.7 % (0-10); NRBC Flagged by Analyzer 0 % (0-5); Neutrophil # 7.15 X10^3/uL (2.7-7.7); Neutrophil % 62.9 % (47-70); Platelet Count 332 K/mm3 (150-450); RBC Distribution Width SD 43.9 fl (35.1-43.9); Red Blood Count 3.94 M/mm3 (4.2-5.4); White Blood Count 11.4 K/mm3 (4.4-11.0)
[2025-05-05 07:12] LABS: Anion Gap 11 (5-15); BUN 10 mg/dL (4-19); BUN/Creat Ratio 11.9 RATIO (10-20); Calcium,Total 8.4 mg/dL (7.6-11.0); Carbon Dioxide 22.9 mmol/L (21.0-32.0); Chloride 107 mmol/L (98-108); Creatinine, Serum 0.87 mg/dL (0.70-1.20); EST Glomerular Filtration Rate 75 (>60); Glucose 119 mg/dL (70-99); Potassium 3.7 mmol/L (3.3-5.1); Sodium Level 141 mmol/L (133-145)
--- NOTE | 2025-05-05 07:35 | PN.HOSP_ITS ---
Reason for Visit Reason for Visit: Diagnoses Periorbital cellulitis (05/04/25) Headache, unspecified (05/04/25) Subjective Subjective Improved edema of right eye. Still w headache and right eye pain. Still with blurry vision. Objective Data Objective Data Vital Signs: Vital Signs Temp Pulse Resp BP Pulse Ox O2 Del Method 36.8 C 78 16 108/59 L 96 Room Air 05/05/25 02:35 05/05/25 02:35 05/05/25 02:35 05/05/25 02:35 05/05/25 02:35 05/05/25 02:35 Oxygen Delivery Method Room Air Weight: 68.039 kg Body Mass Index (BMI) 30.2 Intake & Output: Intake and Output for Last 24 Hours 05/03/25 05/04/25 05/05/25 23:59 23:59 23:59 Intake Total 315 / 315 Balance 315 / 315 Lab / Micro Data 05/05/25 05:35 05/05/25 05:35 Labs: Laboratory Results - last 24 hr 05/04/25 07:11: Sodium 141, Potassium 4.0, Chloride 104, Carbon Dioxide 23.3, Anion Gap 14, BUN 8, Creatinine 0.81, Estim Creat Clear Calc 64.78, Est GFR (MDRD) Non-Af 83, BUN/Creatinine Ratio 9.5 L, Glucose 171 H, Lactic Acid 1.3, C alcium 11.2 H, Procalcitonin 0.71 H 05/05/25 05:35: WBC 11.4 H, RBC 3.94 L, Hgb 12.3, Hct 36.6 L, MCV 92.9, MCH 31.2, MCHC 33.6, RDW Std Deviation 43.9, RDW Coeff of Tobias 13.0, Plt Count 332, MPV 9.8, Immature Gran % (Auto) 0.400, Neut % (Auto) 62.9, Lymph % (Auto) 21.5, Coal % (Auto) 10.7 H, Eos % (Auto) 4.1, Baso % (Auto) 0.4, Absolute Neuts (auto) 7.2, Absolute Lymphs (auto) 2.44, Nucleated RBC % 0, Sodium 141, Potassium 3.7, Chloride 107, Carbon Dioxide 22.9, Anion Gap 11, BUN 10, Creatinine 0.87, Estim Creat Clear Calc 57.70, Est GFR (MDRD) Non-Af 75, BUN/Creatinine Ratio 11.9, G lucose 119 H, Calcium 8.4 Radiography Diagnostic Testing: Radiology Impression Facial/Sinus 05/04/25 06:48 IMPRESSION: At the right orbit, extensive right sided preseptal edema is seen, but also with postseptal extension seen medially as well, consistent with postseptal extension of the extant cellulitis. Reading Location: [address] Physical Exam Const alert and no apparent distress HEENT head/scalp atraumatic and moist oral mucous membranes Eyes Eyes Narrative: improved edema of right eye lids. able to open eye spontaneously. Resp normal respiratory effort, no retractions, no use of accessory muscles and clear to auscultation bilaterally Cardio regular rate, regular rhythm, S1 normal heart sound and S2 normal heart sound GI normal to inspection, nondistended, normoactive bowel sounds, soft to palpation, non-tender and non-distended Neuro Sensorium / Orientation: awake and alert Assessment & Plan Assessment/Plan (1) Periorbital cellulitis of right eye: PLAN: Improving. No abscess. EOMI. Continue abx with pip/tazo and vancomycin. Elevate the head. Cold compress as tolerated. If worse, repeat imaging. Discussed that if worse and development of abscess, she will require being transferred to a tertiary facility. If improves, eventual discharge home w PO abx and follow up with Dr. Warren. (2) Headache: PLAN: headache/migraine has had a h/o migraines requiring prophylactic mgmt with amitriptyline likely worse given above. schedule acetaminophen, PRN IV ketorolac DW patient about rebound phenomenon with narcotics and recommended against their use with the headache, but if she is having eye pain due to the cellulitis, that would be appropriate. PLAN: Plan RA/PA: unclear if patient has either. She says she will be following up with rheumatology in [place]. In the meantime, hold MTX, Tremfya. DM1: on insulin pump for 30 years and has a CGM. She is comfortable managing her blood sugars here. VTE prophylaxis: LMWH Charges/Coding Visit Charges Inpatient E&M: 37593 Subs Hosp L1
[2025-05-05 07:59] VITALS: BP 121/68; PULSE 73; RESP 16; TEMP 36.3; O2SAT 96
[2025-05-05 08:00] VITALS: RESP 18
[2025-05-05] MEDS: Lisinopril 40 MG Tablet PO (10:37)
[2025-05-05] MEDS: Docusate Sodium 100 MG Capsule 200 MG PO ×2 (10:37→22:38)
[2025-05-05] MEDS: Pantoprazole Sodium 40 MG Tablet PO (10:37)
[2025-05-05] MEDS: Vancomycin HCl 750 MG in 0.9% Normal Saline (250mL Bag) 250 ML 100 MG IV (13:25)
[2025-05-05 15:00] VITALS: BP 135/51; PULSE 87; RESP 16; TEMP 36.8; O2SAT 96
[2025-05-05 15:54] LABS: Bedside Glucose 213 mg/dL (74-106)
[2025-05-05 20:28] LABS: Bedside Glucose 273 mg/dL (74-106)
[2025-05-05 21:33] VITALS: BP 139/74; PULSE 101; RESP 18; TEMP 37.6; O2SAT 98
[2025-05-05] MEDS: Amitriptyline 25 MG Tablet 50 MG PO (22:38)
[2025-05-05] MEDS: Pravastatin 80 MG Tablet PO (22:38)
[2025-05-05] MEDS: MELATONIN 3 MG TABLET PO (22:38)
[2025-05-06 01:03] LABS: Vancomycin, Trough Level < 4.0 ug/mL (5.0-15.0)
--- NOTE | 2025-05-06 01:25 | PCM.RX.CS ---
Consult Antibiotic Management Pharmacy has been consulted to manage selected antibiotic: Vancomycin Type of Intervention Type of Consult: Follow-up Labs Labs: Sodium 141 mmol/L (133-145) 05/05/25 05:35 Potassium 3.7 mmol/L (3.3-5.1) 05/05/25 05:35 Chloride 107 mmol/L (98-108) 05/05/25 05:35 Carbon Dioxide 22.9 mmol/L (21.0-32.0) 05/05/25 05:35 Anion Gap 11 (5-15) 05/05/25 05:35 BUN 10 mg/dL (4-19) 05/05/25 05:35 Creatinine 0.87 mg/dL (0.70-1.20) 05/05/25 05:35 Est GFR (MDRD) Non-Af 75 (>60) 05/05/25 05:35 BUN/Creatinine Ratio 11.9 RATIO (10-20) 05/05/25 05:35 Glucose 119 mg/dL (70-99) H 05/05/25 05:35 Vancomycin Trough < 4.0 ug/mL (5.0-15.0) L 05/05/25 23:55 Dosing Weight Weight used for dosin kg Estimated Creatinine Clearance Estimated Creatinine Clearance: 58 Goal Trough Goal Trough: 15-20 mcg/mL Pharmacy Plan for Drug Dosing Pharmacy Plan for Drug Dosing: Vancomycin trough level, drawn 10.5hrs post-dose, was low at <4. Will increase dose to 1250mg q12h, and will draw another trough level prior to fourth dose. Pharmacy Service will continue to monitor and adjust dosing as required. Follow-Up Labs Follow-Up Labs: Trough: Vancomycin Date/Time Labs Ordered Labs to be done on [date and time ordered]: 05/07/25 @1300
[2025-05-06] MEDS: Vancomycin HCl 1,250 MG in 0.9% Normal Saline (250mL Bag) 250 ML 167 MG IV ×2 (01:46→14:09)
[2025-05-06 02:48] VITALS: BP 130/76; PULSE 86; RESP 16; TEMP 37.1; O2SAT 97
[2025-05-06] MEDS: Piperacil/Tazobactam 3.375 GM in 0.9% Normal Saline (50mL MB+) 50 ML IV (05:50)
[2025-05-06] MEDS: Ketorolac 30 MG/ML Syringe IV ×2 (05:50→14:05)
[2025-05-06] MEDS: Acetaminophen 500 MG Tablet 1000 MG PO ×2 (05:53→14:08)
[2025-05-06 06:56] LABS: Absolute Lymphocyte Count 2.23 X10^3/uL (0.83-4.51); Absolute Neutrophil Count 6.4 X10^3/uL (2.0-7.7); Basophil# 0.04 X10^3/uL; Basophil% 0.4 % (0-1); Eosinophil# 0.51 X10^3/uL; Hemoglobin 12.7 g/dL (12.0-15.0); Lymphocyte # 2.23 X10^3/ul (0.83-4.51); Lymphocyte % 21.8 % (19-41); Mean Corp Hgb Conc 33.4 g/dL (32-36); Mean Corpuscular Hgb 30.9 pg (27.0-32.0); Mean Corpuscular Volume 92.5 fL (81-99); Mean Platelet Vol. 9.4 fl (6.2-12.0); Monocyte% 9.8 % (0-10); NRBC Flagged by Analyzer 0 % (0-5); Neutrophil # 6.43 X10^3/uL (2.7-7.7); Neutrophil % 62.6 % (47-70); Platelet Count 321 K/mm3 (150-450); RBC Distribution Width CV 12.8 % (11.6-14.6); RBC Distribution Width SD 43.2 fl (35.1-43.9); Red Blood Count 4.11 M/mm3 (4.2-5.4); White Blood Count 10.3 K/mm3 (4.4-11.0)
[2025-05-06] MEDS: oxyCODONE 5 MG Tablet PO (07:02)
--- NOTE | 2025-05-06 07:26 | PN.HOSP_ITS ---
Reason for Visit Reason for Visit: Diagnoses Periorbital cellulitis (05/04/25) Headache, unspecified (05/04/25) Subjective Subjective Feeling well. Decreased edema over right eyelids. Objective Data Objective Data Vital Signs: Vital Signs Temp Pulse Resp BP Pulse Ox O2 Del Method 37.1 C 86 16 130/76 H 97 Room Air 05/06/25 02:48 05/06/25 02:48 05/06/25 02:48 05/06/25 02:48 05/06/25 02:48 05/06/25 02:48 Oxygen Delivery Method Room Air Weight: 68.039 kg Body Mass Index (BMI) 30.2 Intake & Output: Intake and Output for Last 24 Hours 05/04/25 05/05/25 05/06/25 23:59 23:59 23:59 Intake Total 2130.00 / 2130.00 325 / 325 Balance 2130.00 / 2130.00 325 / 325 Lab / Micro Data 05/06/25 06:40 05/06/25 06:40 Labs: Laboratory Results - last 24 hr 05/05/25 05:35: Hemoglobin A1c 7.0 H 05/05/25 15:34: POC Glucose 213 H 05/05/25 20:08: POC Glucose 273 H 05/05/25 23:55: Vancomycin Trough < 4.0 L 05/06/25 06:40: WBC 10.3, RBC 4.11 L, Hgb 12.7, Hct 38.0, MCV 92.5, MCH 30.9, MCHC 33.4, RDW Std Deviation 43.2, RDW Coeff of Tobias 12.8, Plt Count 321, MPV 9.4, Immature Gran % (Auto) 0.400, Neut % (Auto) 62.6, Lymph % (Auto) 21.8, [place] % (Auto) 9.8, Eos % (Auto) 5.0, Baso % (Auto) 0.4, Absolute Neuts (auto) 6.4, Absolute Lymphs (auto) 2.23, Nucleated RBC % 0 Physical Exam Const alert and no apparent distress Eyes Eyes Narrative: swelling of right upper and lower eyelids. Able to spontaneously open her eye. No purulence expressed Assessment & Plan Assessment/Plan (1) Periorbital cellulitis of right eye: PLAN: Improving. No abscess. EOMI. Continue abx with pip/tazo and vancomycin. Elevate the head. Cold compress as tolerated. If worse, repeat imaging. Discussed that if worse and development of abscess, she will require being transferred to a tertiary facility. DC with Augmentin and doxycycline. (2) Headache: PLAN: headache/migraine has had a h/o migraines requiring prophylactic mgmt with amitriptyline likely worse given above. schedule acetaminophen, PRN IV ketorolac DW patient about rebound phenomenon with narcotics and recommended against their use with the headache, but if she is having eye pain due to the cellulitis, that would be appropriate. PLAN: Plan RA/PA: unclear if patient has either. She says she will be following up with rheumatology in [place]. In the meantime, hold MTX, Tremfya. DM1: on insulin pump for 30 years and has a CGM. She is comfortable managing her blood sugars here. DW patient's at bedside.
[2025-05-06 07:40] LABS: Anion Gap 9 (5-15); BUN 13 mg/dL (4-19); BUN/Creat Ratio 14.9 RATIO (10-20); Calcium,Total 8.6 mg/dL (7.6-11.0); Carbon Dioxide 24.5 mmol/L (21.0-32.0); Chloride 107 mmol/L (98-108); EST Glomerular Filtration Rate 73 (>60); Estimated Creatinine Clearance 55.78 ml/min (50-250); Glucose 129 mg/dL (70-99); Potassium 3.6 mmol/L (3.3-5.1); Sodium Level 140 mmol/L (133-145)
[2025-05-06] MEDS: Enoxaparin 40 MG/0.4 ML Syringe SC (09:08)
[2025-05-06] MEDS: Docusate Sodium 100 MG Capsule 200 MG PO (09:08)
[2025-05-06] MEDS: Lisinopril 40 MG Tablet PO (09:08)
[2025-05-06 09:13] VITALS: BP 125/47; PULSE 76; RESP 14; TEMP 36.7; O2SAT 96
--- NOTE | 2025-05-06 13:01 | DS.PCM_ITS ---
Providers Date of Admission: 05/04/25 Primary Care Physician: Dr. Santino Ruelas, Reason For Visit: PERIORBITAL CELLULITIS Diagnosis Discharge Diagnosis (1) Periorbital cellulitis of right eye: Status: Acute Code(s): L03.213 - Periorbital cellulitis Plan: Improving. No abscess. EOMI. Continue abx with pip/tazo and vancomycin. Elevate the head. Cold compress as tolerated. If worse, repeat imaging. Discussed that if worse and development of abscess, she will require being transferred to a tertiary facility. DC with Augmentin and doxycycline. (2) Headache: Status: Acute Code(s): R51.9 - Headache, unspecified Plan: headache/migraine has had a h/o migraines requiring prophylactic mgmt with amitriptyline likely worse given above. schedule acetaminophen, PRN IV ketorolac DW patient about rebound phenomenon with narcotics and recommended against their use with the headache, but if she is having eye pain due to the cellulitis, that would be appropriate. Plan RA/PA: unclear if patient has either. She says she will be following up with rheumatology in [place]. In the meantime, hold MTX, Tremfya. DM1: on insulin pump for 30 years and has a CGM. She is comfortable managing her blood sugars here. DW patient's at bedside. Medications at Discharge Home Medications docusate sodium 100 mg capsule 250 mg PO BID stool softener 11/11/16 Fiber 1 cap PO BID BMs 05/03/18 Insulin Pump Cartridge 1 unit SQ CONT diabetes 05/03/18 omeprazole 20 mg capsule,delayed release 40 mg PO DAILY PRN reflux 07/18/20 amitriptyline 50 mg tablet 50 mg PO QHS migraines 03/29/22 folic acid 1 mg tablet 1 mg PO TH supplement 03/29/22 methotrexate (PF) 7.5 mg/0.3 mL subcutaneous syringe 7.5 mg subcut WESA RA 03/29/22 pravastatin 80 mg tablet 80 mg PO QHS 03/29/22 lisinopril 40 mg tablet 40 mg PO DAILY 03/11/23 acetaminophen 500 mg tablet 1,000 mg (2 x 500 mg) PO Q8 #0 tabs 05/06/25 amoxicillin 875 mg-potassium clavulanate 125 mg tablet 1 tab PO Q12H #10 tabs 05/06/25 doxycycline monohydrate 100 mg capsule 100 mg PO BID #10 caps 05/06/25 ibuprofen 800 mg tablet 800 mg PO Q8H PRN pain #20 tabs 05/06/25 oxycodone 5 mg tablet 5 mg PO Q4H PRN PRN Pain Score 4-10 3 days #12 tabs 05/06/25 Hospital Course Operations None Procedures None Summary of Care Provided Minutes Spent on Discharge: 35 Weight / BMI Weight Weight: 68.039 kg Body Mass Index (BMI) 30.2 ABG / Lab / Microbiology Data 05/06/25 06:40 05/06/25 06:40 Laboratory: Laboratory Results - last 24 hr 05/05/25 15:34: POC Glucose 213 H 05/05/25 20:08: POC Glucose 273 H 05/05/25 23:55: Vancomycin Trough < 4.0 L 05/06/25 06:40: WBC 10.3, RBC 4.11 L, Hgb 12.7, Hct 38.0, MCV 92.5, MCH 30.9, MCHC 33.4, RDW Std Deviation 43.2, RDW Coeff of Tobias 12.8, Plt Count 321, MPV 9.4, Immature Gran % (Auto) 0.400, Neut % (Auto) 62.6, Lymph % (Auto) 21.8, Gage % (Auto) 9.8, Eos % (Auto) 5.0, Baso % (Auto) 0.4, Absolute Neuts (auto) 6.4, Absolute Lymphs (auto) 2.23, Nucleated RBC % 0, Sodium 140, Potassium 3.6, Chloride 107, Carbon Dioxide 24.5, Anion Gap 9, BUN 13, Creatinine 0.90, Estim Creat Clear Calc 55.78, Est GFR (MDRD) Non-Af 73, BUN/Creatinine Ratio 14.9, G lucose 129 H, Calcium 8.6 D/C Instructions Discharge Diet: 2000 Calorie Control Diet DC O2, CPAP, BIPAP Needs Home O2 Discharge instructions: No Meaningful Use Info Meaningful Use Meaningful Use Diagnoses (Choose all that apply): None applicable Ischemic Stroke Statin Dosing Therapy Reference: STATIN DOSE THERAPY REFERENCE: * Patients > 75 years receive moderate or high dose statin therapy. * Patients 75 years or YOUNGER should receive HIGH intensity statin dose unless contraindicated. You will be required to document reason for non-treatment if statin daily dose does not meet guidelines. HIGH DOSE STATIN THERAPY DAILY Atorvastatin > than or = to 40 mg Rosuvastatin > than or = to 20 mg Amlodipine + Atorvastatin > than or = to 2.5/40 mg Ezetimibe + Simvastatin 10/80 mg Simvastatin 80mg Discharge Plan Admission Admit Date/Time: 05/04/25 09:51 Primary Reason for Your Visit: Periorbital cellulitis. Attending Provider: Arslan Grullon Primary Care Provider: Santino Ruelas Instructions Additional Instructions / Restrictions: Moist compress to right eye as needed. Notify your physician if swelling/pain worse. Discharge Orders/Prescriptions Prescriptions: New acetaminophen 500 mg Tablet 1,000 mg PO Q8 Qty: 0 0RF oxycodone 5 mg Tablet 5 mg PO Q4H PRN PRN (Reason: Pain Score 4-10) 3 Days Qty: 12 0RF ibuprofen 800 mg tablet 800 mg PO Q8H PRN (Reason: pain) Qty: 20 0RF amoxicillin-pot clavulanate 875-125 mg tablet 1 tab PO Q12H Qty: 10 0RF doxycycline monohydrate 100 mg capsule 100 mg PO BID Qty: 10 0RF Continued lisinopril 40 mg tablet 40 mg PO DAILY Patient Comments: Take 1 by mouth onceNdaily docusate sodium 100 MG capsule 250 mg PO BID Fiber 1 cap PO BID Insulin Pump Cartridge 1 unit SQ CONT omeprazole 20 MG capsule 40 mg PO DAILY PRN (Reason: reflux) pravastatin 80 mg Tablet 80 mg PO QHS folic acid 1 mg Tablet 1 mg PO TH methotrexate (PF) 7.5 mg/0.3 mL Syringe 7.5 mg SUBCUT WESA amitriptyline 50 mg Tablet 50 mg PO QHS Referrals / Follow Up: [facility] [Outside] (follow up at next scheduled appointment. ) Thor Warren MD [Med Staff - Active Staff] - Within 1 Week Santino Ruelas DO [Primary Care Provider] - Within 2 Weeks Disposition Disposition (needs filled in before D/C Order can be placed): Home, Self Care Charges/Coding Visit Charges Inpatient E&M: 91287 Disch Hosp >30min
[2025-05-06] MEDS: 0.9% Saline Lock 10 ML Syringe IV (14:09)
[2025-05-06 14:16] VITALS: BP 121/58; PULSE 72; RESP 14; TEMP 36.7; O2SAT 99
--- NOTE | 2025-05-06 16:00 | CASEMGMT ---
ROEL KURTZ NOTE: Discharge order is in. ROEL KURTZ to room. Pt sitting up in chair. Introduced self and role. Discussed discharge. She feels safe to discharge home. She has an insulin pump and all insulin and supplies needed & denies any DME needs. Pt denies having any discharge needs or concerns. Brianne VICTOR RN, CM
== END 2025-05-06 17:40 | disposition home or self-care (01) | DRG 603 ==
LOC: ED 08:57 → MS3 10:46
PROVIDERS: Emergency Provider Emergency Medicine; PCP Family Medicine
DX: L03.213 Periorbital cellulitis (principal); E10.40 Type 1 diabetes mellitus with diabetic neuropathy, unspecified; M06.9 Rheumatoid arthritis, unspecified; I10 Essential (primary) hypertension; G43.909 Migraine, unspecified, not intractable, without status migrainosus; E78.2 Mixed hyperlipidemia; Z79.4 Long term (current) use of insulin; M79.7 Fibromyalgia; Z79.2 Long term (current) use of antibiotics; Z90.710 Acquired absence of both cervix and uterus; Z98.890 Other specified postprocedural states; Z96.41 Presence of insulin pump (external) (internal)
CPT/HCPCS: 36415; 70486; 80048; 80202; 82962; 83036; 83605; 84145; 85025; 99285; A4216; J2405

== ENCOUNTER 2025-05-20 13:52 | Outpatient (CLI) | payer OTHER, SELFPAY ==
[2025-05-20] MEDS: DENOSUMAB 60 MG/ML SC (13:59)
[2025-05-20 14:01] VITALS: BP 143/70; PULSE 94; RESP 16; TEMP 36.1; O2SAT 95; BMI 29.7
== END 2025-05-20 23:59 | disposition home or self-care (01) ==
LOC: MEDOUTP 13:52
PROVIDERS: PCP Family Medicine; Referring Provider Family Medicine; Visit Provider Family Medicine
DX: M81.0 Age-related osteoporosis without current pathological fracture (principal)
CPT/HCPCS: 96372; J0897

== ENCOUNTER → 2025-08-17 | Outpatient (CLI) | payer OTHER, SELFPAY | END | disposition home or self-care (01) | LOC: MTLAB 16:47 | PROVIDERS: PCP Family Medicine; Referring Provider Ophthalmology; Visit Provider Ophthalmology | DX: H02.402 Unspecified ptosis of left eyelid (principal) | CPT/HCPCS: 36415; 83519 ==

== ENCOUNTER → 2025-08-18 | Outpatient (CLI) | payer OTHER, SELFPAY ==
--- NOTE | 2025-08-18 14:14 | MRI_ITS ---
PROCEDURE: BRAIN W/WO CONTRAST 08/18/2025 REASON FOR EXAM: SUDDEN ONSET L UPPER LID PTOSIS - NORMAL PUPIL TECHNIQUE: Procedure Code: [id number] Modality: MR Procedure: BRAIN W/WO CONTRAST Multiplanar and multisequence images were obtained. CONTRAST: Clariscan VOLUME: 13 mL COMPARISON: none FINDINGS: No acute or hyperacute infarcts. No intracerebral or extra-axial acute hemorrhage. No obvious enhancing masses. Bilateral cerebral periventricular and subcortical foci and patches of high T2/FLAIR WI signal. Normal MRI signal of the cerebellar hemispheres and brain stem. Dilated ventricular system, cortical sulci and extra-axial CSF spaces. No shift of midline structures. Normal MRI appearance of the petrous temporal bones cerebellopontine angles with no definite masses. Normal MRI appearance of orbital structures, both globes, optic nerves, optic chiasm, optic tracts and optic radiations. Scanned paranasal sinuses show minimal maxillary sinusitis MRI/Brain W/WO Contrast IMPRESSION: No acute infarcts. No intracerebral or extra-axial hematomas. No enhancing mass es. Bilateral cerebral microvascular ischemic changes with brain involutional saucedo es. Reading [facility] [address]
== END | disposition home or self-care (01) ==
LOC: MRI 14:12
PROVIDERS: PCP Family Medicine; Referring Provider Ophthalmology; Visit Provider Ophthalmology
DX: H02.402 Unspecified ptosis of left eyelid (principal)
CPT/HCPCS: 70553; A9575; A4216

== ENCOUNTER → 2025-09-06 | Outpatient (CLI) | payer OTHER, SELFPAY ==
[2025-09-06 14:24] LABS: Hematocrit 44.7 % (37-47); Hemoglobin 15.7 g/dL (12.0-15.0); Immature Granulocytes Count 0.020 X10^3/uL (0.0-0.0); Mean Corp Hgb Conc 35.1 g/dL (32-36); Mean Corpuscular Volume 88.3 fL (81-99); Mean Platelet Vol. 10.1 fl (6.2-12.0); NRBC Flagged by Analyzer 0 % (0-5); Platelet Count 333 K/mm3 (150-450); RBC Distribution Width CV 13.2 % (11.6-14.6); RBC Distribution Width SD 43.2 fl (35.1-43.9); Red Blood Count 5.06 M/mm3 (4.2-5.4); White Blood Count 6.4 K/mm3 (4.4-11.0)
[2025-09-06 15:25] LABS: AST(SGOT) 34 U/L (<=31); Alanine Aminotransfer ALT/SGPT 31 U/L (<=34); Albumin, Serum 4.2 g/dL (3.4-4.8); Alkaline Phosphatase 78 U/L (35-104); Bilirubin, Direct 0.12 mg/dL (0.00-0.30); Globulin 2.6 g/dL (2.2-4.2)
[2025-09-13 08:08] LABS: ACHR AB Modulating 55 % (0-45)
[2025-09-13 14:08] LABS: ACHR Recep AB, Blocking 42 % (0-25)
== END | disposition home or self-care (01) ==
LOC: LAB 13:22
PROVIDERS: PCP Family Medicine; Referring Provider Psychiatry & Neurology Neurology; Visit Provider Psychiatry & Neurology Neurology
DX: G70.00 Myasthenia gravis without (acute) exacerbation (principal)
CPT/HCPCS: 36415; 80076; 83519; 84238; 85025

== ENCOUNTER → 2025-10-20 | Outpatient (CLI) | payer OTHER, SELFPAY ==
[2025-10-20 08:50] LABS: Creatinine, Urine (random) 64.10 mg/dL (28.00-217.00); Microalbumin,Random Urine < 12.0 mg/L (<20 mg/L)
[2025-10-20 09:10] LABS: AST(SGOT) 228 U/L (<=31); Alanine Aminotransfer ALT/SGPT 289 U/L (<=34); Albumin, Serum 3.8 g/dL (3.4-4.8); Alkaline Phosphatase 223 U/L (35-104); Bilirubin, Direct 0.51 mg/dL (0.00-0.30); Cholesterol 205 mg/dL (<=200); Globulin 2.5 g/dL (2.2-4.2); Low Density Lipoprotein Calc. 134 mg/dL; Triglycerides 114 mg/dL; Very Low Density Lipoprotein 23 mg/dL (5-40); cholesterol:hdl ratio screen 4.05
== END | disposition home or self-care (01) ==
LOC: LAB 08:03
PROVIDERS: PCP Family Medicine; Visit Provider Family Medicine
DX: E10.9 Type 1 diabetes mellitus without complications (principal); L29.9 Pruritus, unspecified; R11.0 Nausea
CPT/HCPCS: 36415; 80061; 80076; 82043; 82570; 83036

== ENCOUNTER 2025-10-28 10:05 | Outpatient (RCR) | payer OTHER, SELFPAY ==
[2025-10-28 11:37] LABS: AST(SGOT) 33 U/L (<=31); Alanine Aminotransfer ALT/SGPT 92 U/L (<=34); Albumin, Serum 3.9 g/dL (3.4-4.8); Alkaline Phosphatase 137 U/L (35-104); Bilirubin, Direct 0.17 mg/dL (0.00-0.30); Globulin 2.6 g/dL (2.2-4.2)
== END 2025-10-29 18:00 | disposition home or self-care (01) ==
LOC: LAB 10:05
PROVIDERS: PCP Family Medicine; Referring Provider Psychiatry & Neurology Neurology; Visit Provider Psychiatry & Neurology Neurology
DX: R74.01 Elevation of levels of liver transaminase levels (principal)
CPT/HCPCS: 36415; 80076

== ENCOUNTER 2025-11-21 15:09 | Outpatient (CLI) | payer OTHER, SELFPAY ==
[2025-11-21 15:19] VITALS: BP 124/73; PULSE 92; RESP 16; TEMP 36.1; O2SAT 96; BMI 30.2
[2025-11-21] MEDS: DENOSUMAB 60 MG/ML SC (15:22)
== END 2025-11-21 23:59 | disposition home or self-care (01) ==
LOC: MEDOUTP 15:10
PROVIDERS: PCP Family Medicine; Referring Provider Family Medicine; Visit Provider Family Medicine
DX: M81.0 Age-related osteoporosis without current pathological fracture (principal)
CPT/HCPCS: 96372; J0897

== ENCOUNTER → 2025-11-21 | Outpatient (CLI) | payer OTHER, SELFPAY ==
--- NOTE | 2025-11-21 15:45 | CT_ITS ---
PROCEDURE: CHEST WITHOUT CONTRAST 11/21/2025 REASON FOR EXAM: EVAL FOR THYMOMA TECHNIQUE: Chest CT without contrast. Coronal and Sagittal reconstruction series were provided. One or more dose reduction techniques were used (e.g., Automated exposure control, adjustment of the mA and/or kV according to patient size, use of iterative reconstruction technique RADIATION DOSE SUMMARY: CTDlvol: 10.48 mGy DLP: 303.78 mGycm COMPARISON: CTA chest April 22, 2023. FINDINGS: Hardware: Unremarkable. Lymph nodes: No lymphadenopathy. Heart and Vasculature: No cardiomegaly. Coronary Artery Calcifications: Present. Lungs and Airways: Clear. Pleura: No pleural effusion or pneumothorax Upper Abdomen: No acute abdominopelvic abnormalities. Bones: No acute bony abnormalities. CT/Chest without Contrast IMPRESSION: Coronary artery calcification (CAC) is is present No acute chest abnormalities. Reading Location: [id number]
== END | disposition home or self-care (01) ==
LOC: CT 15:44
PROVIDERS: PCP Family Medicine; Referring Provider Psychiatry & Neurology Neurology; Visit Provider Psychiatry & Neurology Neurology
DX: G70.00 Myasthenia gravis without (acute) exacerbation (principal)
CPT/HCPCS: 71250

== ENCOUNTER 2025-11-29 07:44 | Outpatient (RCR) | payer OTHER, SELFPAY ==
[2025-11-10 09:08] LABS: AST(SGOT) 25 U/L (<=31); Alanine Aminotransfer ALT/SGPT 30 U/L (<=34); Albumin, Serum 3.9 g/dL (3.4-4.8); Alkaline Phosphatase 94 U/L (35-104); Bilirubin, Direct 0.14 mg/dL (0.00-0.30); Globulin 2.4 g/dL (2.2-4.2)
[2025-11-29 08:18] LABS: AST(SGOT) 26 U/L (<=31); Alanine Aminotransfer ALT/SGPT 22 U/L (<=34); Albumin, Serum 4.0 g/dL (3.4-4.8); Alkaline Phosphatase 76 U/L (35-104); Bilirubin, Direct 0.10 mg/dL (0.00-0.30); Globulin 2.5 g/dL (2.2-4.2)
== END 2025-11-29 18:00 | disposition home or self-care (01) ==
LOC: LAB 07:44
PROVIDERS: PCP Family Medicine; Referring Provider Psychiatry & Neurology Neurology; Visit Provider Psychiatry & Neurology Neurology
DX: R74.01 Elevation of levels of liver transaminase levels (principal)
CPT/HCPCS: 36415; 80076